=== PATIENT | male | born 1965 | race Caucasian/White ===

== ENCOUNTER → 2016-09-06 | Outpatient (CLI) | payer OTHER ==
[~2016-09-06] VITALS: Ht 180.3 cm; Wt 74.8 kg
[~2016-09-06] MED LIST: /ADVA50050; /AMIT10TA PO; /DULO30CA OR; /ESOM40CA OR; /FENT25PA TD; /METH500TA PO; ACET-654 PO; ACTO45TA; ADV250INH INH; ADVA250A IN; ALBU17IN INH; AMBI10TA OR; AMBI10TA PO; AMBI5TAB PO; AMIT10TA PO; AMIT25TA2 OR; AMLO10TA2 PO; ASPI1TAB PO; ASPI81TA7 PO; BACL10TA2 OR; BACT800T5 PO; CLON-404 PO; COLA100C PO; COMBAER6 INH; CRES5TAB; CRES5TAB PO; DICL500C PO; DICL75TA PO; DOXY100C PO; ERYT25TA PO; EXFORGE; EXFORGE OR; Exforge PO; FERR325T PO; HUMULIN N SC; HYDR-3363 PO; HYDR1CRE63 TOP; HYDR25TA6 OR; INSULIN 70/30 SC; KEFL500C7 PO; LIDOCAINE 2% INJ 100 MG/5 ML SDV (FOR ANES.) As Ordered ONE; LOMO2.5T PO; LOSA100T36 PO; LOVA40TA PO; LYRI200C PO; LYRI75CA OR; NEXI40CA PO; NORT10CA2 PO; NOVO70IN SC; NOVO70VL SC; NS 1,000 ML IV SCH; OMEP40CA2 PO; ONDA1TAB15 PO; OXYC30TA84 PO; PENT400T PO; PHENYLephrine HCL 500 MCG/5 ML (100MCG/ML) SYRINGE (J2370) As Ordered ONE; PROPOFOL 200 MG/20 ML VIAL As Ordered ONE; SILV1CRE19 TOP; SOMA350T OR; SOMA350T PO; SPIR25TA2 OR; TOUJ1.2I SC; TYLE650T30 PO; VICO5TAB OR; VOLT1GEL EX; ZANA4CAP OR; [UNRECOGNIZED DRUG - OTHER]; [UNRECOGNIZED DRUG - OTHER] PO; ePHEDrine SULFATE 25 MG/5 ML(5MG/ML) SYRINGE As Ordered ONE; fentaNYL 100 MCG/2 ML INJECTION (J3010) As Ordered ONE; kadian PO; oxycodone IR PO; trental PO
--- NOTE | 2016-09-06 11:56 | ROOR ---
Patient Name: Julio Cesar Burton Procedure Date: 09/06/2016 11:41 AM Date of : 1965 Age: 51 Room: M OP Gender: Male Note Status: Finalized Procedure: Upper GI endoscopy Indications: Abnormal CT of the GI tract, Suspected gastroparesis, Diarrhea, Endoscopy to assess diarrhea in patient suspected of having disease of the small-bowel Providers: Liu EVANS MD Referring MD: Yoana Turner Requesting Provider: Medicines: Monitored Anesthesia Care Complications: No immediate complications. Procedure: Pre-Anesthesia Assessment: - The heart rate, respiratory rate, oxygen saturations, blood pressure, adequacy of pulmonary ventilation, and response to care were monitored throughout the procedure. The Endoscope was introduced through the mouth, and advanced to the second part of duodenum. The upper GI endoscopy was accomplished without difficulty. The patient tolerated the procedure well. Findings: The examined esophagus was normal. The entire examined stomach was normal. The examined duodenum was normal. Biopsies for histology were taken with a cold forceps for evaluation of celiac disease. Impression: - Normal esophagus. - Normal stomach. - Normal examined duodenum. Biopsied. Recommendation: - Continue present medications. - Gastroparesis diet: - Eat smaller, more frequent meals throughout the day. - Low fat diet. - Liquid/soft foods are tolerated better than solid foods. - Low fiber/well cooked vegetables are tolerated better than high fiber/fibrous foods/raw vegetables. - If possible, avoid or reduce medications that inhibit gastric/intestinal motility such as narcotic medications. Liu Evans MD Liu EVANS MD 09/06/2016 11:56:43 AM This report has been signed electronically. Number of Addenda: 0 Note Initiated On: 09/06/2016 11:41 AM Estimated Blood Loss: Estimated blood loss: none.
--- NOTE | 2016-09-06 12:38 | ROOR ---
Patient Name: Julio Cesar Burton Procedure Date: 09/06/2016 11:42 AM Date of : 1965 Age: 51 [facility] Note Status: Finalized Procedure: Colonoscopy Indications: Chronic diarrhea, Clinically significant diarrhea of unexplained origin, suspect constipation/fecal impaction with overflow diarrhea. Providers: Liu EVANS MD Referring MD: Yoana Turner Requesting Provider: Medicines: Monitored Anesthesia Care Complications: No immediate complications. Procedure: Pre-Anesthesia Assessment: - The heart rate, respiratory rate, oxygen saturations, blood pressure, adequacy of pulmonary ventilation, and response to care were monitored throughout the procedure. The Colonoscope was introduced through the anus and advanced to 4 cm into the ileum. The colonoscopy was performed without difficulty. The patient tolerated the procedure well. The quality of the bowel preparation was poor and required extensive lavage. Visualisation improved, but inadequate for detail exam. Findings: The perianal and digital rectal examinations were normal. (Colon Prep was POOR, Inadequate Visualisation) Five sessile polyps were found in the sigmoid colon. The polyps were 4 to 7 mm in size. These polyps were removed with a hot snare. Resection and retrieval were complete. Two semi-sessile polyps were found at the splenic flexure. The polyps were 5 to 12 mm in size. These polyps were removed with a piecemeal technique using a hot snare. Resection and retrieval were complete. To prevent bleeding post-intervention, one hemostatic clip was successfully placed. Three sessile polyps were found at the hepatic flexure. The polyps were 4 to 6 mm in size. These polyps were removed with a cold snare. Resection and retrieval were complete. Multiple diverticula were found in the sigmoid colon. Internal hemorrhoids were found during retroflexion. The hemorrhoids were moderate. The terminal ileum appeared normal. Biopsies for histology were taken with a cold forceps from the entire colon for evaluation of microscopic colitis. Impression: - (Colon Prep was POOR, Inadequate Visualisation) - Five 4 to 7 mm polyps in the sigmoid colon, removed with a hot snare. Resected and retrieved. - Two 5 to 12 mm polyps at the splenic flexure, removed piecemeal using a hot snare. Resected and retrieved. Clip was placed. - Three 4 to 6 mm polyps at the hepatic flexure, removed with a cold snare. Resected and retrieved. - Mild diverticulosis in the sigmoid colon. - Internal hemorrhoids. - The examined portion of the ileum was normal. - Biopsies were taken with a cold forceps from the entire colon for evaluation of microscopic colitis. Recommendation: - Repeat colonoscopy in 6 months for surveillance after piecemeal polypectomy. - Your preparation was suboptimal/inadequate--this is suggestive of constipation. (your diarrhea is likely related to fecal impaction/constipation with "overflow" loose stool. the treatment is to reduce/avoid medications that cause constipation and start a laxative regimen: Start Miralax 1 capful (17 grams) in 8 ounces of water twice a day. (script at your pharmacy) - Telephone endoscopist for pathology results in 2 weeks. - No aspirin, ibuprofen, naproxen, or other non-steroidal anti-inflammatory drugs for 10 days after polyp removal. Liu Evans MD Liu EVANS MD 09/06/2016 12:38:11 PM This report has been signed electronically. Number of Addenda: 0 Note Initiated On: 09/06/2016 11:42 AM Estimated Blood Loss: Estimated blood loss: none.
[2016-09-06 13:04] VITALS: BP 132/69
== END | disposition home or self-care (01) ==
LOC: M OPP 10:53
PROVIDERS: ATTEND Internal Medicine Gastroenterology
DX: R19.7 Diarrhea, unspecified (principal); D12.5 Benign neoplasm of sigmoid colon; D12.3 Benign neoplasm of transverse colon; K57.30 Diverticulosis of large intestine without perforation or abscess without bleeding; K64.8 Other hemorrhoids; R93.3 Abnormal findings on diagnostic imaging of other parts of digestive tract; K29.80 Duodenitis without bleeding; E11.9 Type 2 diabetes mellitus without complications; R12 Heartburn; M19.90 Unspecified osteoarthritis, unspecified site; R06.83 Snoring; G62.9 Polyneuropathy, unspecified; J44.9 Chronic obstructive pulmonary disease, unspecified; F17.200 Nicotine dependence, unspecified, uncomplicated; F17.228 Nicotine dependence, chewing tobacco, with other nicotine-induced disorders; Z79.899 Other long term (current) drug therapy; Z88.8 Allergy status to other drugs, medicaments and biological substances; I10 Essential (primary) hypertension
CPT/HCPCS: 43239; 45380; 45385; 88305; J2370; J3010

== ENCOUNTER → 2016-10-05 | Outpatient (REF) | payer OTHER ==
[~2016-10-05] MED LIST changes: +AMIT25TA PO; +CHOL4POW4 PO; +DOXY-278 PO; +DULO1CAP2 PO; -LIDOCAINE 2% INJ 100 MG/5 ML SDV (FOR ANES.) As Ordered ONE; -NS 1,000 ML IV SCH; -PHENYLephrine HCL 500 MCG/5 ML (100MCG/ML) SYRINGE (J2370) As Ordered ONE; -PROPOFOL 200 MG/20 ML VIAL As Ordered ONE; +VITA200028 PO; +[UNRECOGNIZED DRUG - CODE] EX; -ePHEDrine SULFATE 25 MG/5 ML(5MG/ML) SYRINGE As Ordered ONE; -fentaNYL 100 MCG/2 ML INJECTION (J3010) As Ordered ONE
== END ==
LOC: EEVIPCON 12:54 → M LAB REF 12:54
PROVIDERS: ATTEND Podiatrist Foot & Ankle Surgery
DX: E11.621 Type 2 diabetes mellitus with foot ulcer (principal); L89.622 Pressure ulcer of left heel, stage 2

== ENCOUNTER 2016-10-08 14:43 | Inpatient (IN) | payer OTHER ==
[~2016-10-08] VITALS: Ht 180.3 cm; Wt 83.5 kg
[~2016-10-08 14:43] MED LIST changes: -AMIT25TA PO; -CHOL4POW4 PO; -DOXY-278 PO; -DULO1CAP2 PO; -VITA200028 PO; -[UNRECOGNIZED DRUG - CODE] EX
[2016-10-08 16:10] VITALS: BP 133/81
[2016-10-08] MEDS ORDERED: VANCOMYCIN HCL 1,000 MG, VIAL MATE ADAPTER 1 EACH in D5W 250 ML IV SCH (16:15)
[2016-10-08] MEDS ORDERED: GLUCOSE 4 GM CHEW TABLET PO PRN (16:30)
[2016-10-08] MEDS ORDERED: GLUCAGON FOR INJ 1 MG VIAL (J1610) SC PRN (16:30)
[2016-10-08] MEDS ORDERED: ACETAMINOPHEN TAB 650MG DOSE (2X325MG) PO PRN (16:30)
[2016-10-08] MEDS ORDERED: DEXTROSE 50% 50 ML SYRINGE IV PRN (16:30)
--- NOTE | 2016-10-08 17:04 | REP ---
Clinical: Cellulitis. Technique: AP, lateral, bilateral oblique views of the right and left foot. Comparison: Left foot dated 12/13/2014. Findings: The left foot demonstrates relatively stable age-related changes and no evidence for acute fracture / dislocation, subcutaneous emphysema or radiodense foreign body. Right foot demonstrates prior amputation at the fifth metatarsophalangeal level. Age-related changes are appreciated. No acute fracture / dislocation, subcutaneous emphysema, or radiodense foreign body. Impression: Evidence for prior right fifth toe amputation. Relatively symmetric bilateral age-related change. No acute fracture or dislocation and no significant swelling or subcutaneous emphysema. Signed by Ehsan Naik MD 10/08/2016 04:56 P
[2016-10-08] MEDS ORDERED: AMIT25TA PO (17:06)
[2016-10-08] MEDS ORDERED: DULO1CAP2 PO (17:06)
[2016-10-08] MEDS ORDERED: [UNRECOGNIZED DRUG - CODE] EX (17:06)
[2016-10-08] MEDS ORDERED: DOXY-278 PO (17:06)
[2016-10-08] MEDS ORDERED: VITA200028 PO (17:06)
[2016-10-08] MEDS ORDERED: CHOL4POW4 PO (17:06)
[2016-10-08] MEDS: PERCOCET 5MG/325MG TAB PO PRN (17:29)
[2016-10-08] MEDS: HumaLOG INSULIN (NovoLOG) PER UNIT SC SCH ×2 (17:30→21:00)
[2016-10-08] MEDS ORDERED: VANCOMYCIN HCL 1,000 MG, VIAL MATE ADAPTER 1 EACH in D5W 250 ML IV ONE (18:00)
[2016-10-08 18:56] LABS: ANION GAP 7 MEQ/L (8-16); BLOOD UREA NITROGEN 10 MG/DL (7-18); CALCIUM LEVEL 8.3 MG/DL (8.5-10.1); CARBON DIOXIDE LEVEL 32 MEQ/L (21-32); CHLORIDE LEVEL 97 MEQ/L (98-107); CREATININE FOR GFR 0.92 MG/DL (0.70-1.30); GLOMERULAR FILTRATION RATE > 60.0 (>56); GLUCOSE, FASTING 256 MG/DL (70-105); POTASSIUM SERUM 4.2 MEQ/L (3.5-5.1); SODIUM LEVEL 136 MEQ/L (136-145)
[2016-10-08] MEDS ORDERED: VANCOMYCIN HCL 500 MG in D5W MINI-BAG PLUS 100 ML IV ONE (19:00)
[2016-10-08 19:12] LABS: MEAN CORPUSCULAR HEMOGLOBIN 26.6 pg (27.0-33.0); MEAN CORPUSCULAR VOLUME 85.8 fl (80.0-96.0)
--- NOTE | 2016-10-08 20:32 | HPE ---
DATE OF ADMISSION: 10/08/2016 PRIMARY CARE PROVIDER: Dr. Goodrich LOCAL DELIVERY TRUCK DRIVER: Dr. Argueta HISTORY OF THE PRESENT ILLNESS: The patient is a 51-year-old male with a past medical history significant for insulin-dependent diabetes, peripheral neuropathy, chronic low back pain, chronic abdominal pain, chronic tobacco abuse, was instructed to come to [facility] by his technology consultant, Dr. Argueta, on 10/08/2016. The patient has a history of bilateral foot ulcers and seen by Dr. Argueta for the past several months. The patient was diagnosed with bilateral lower extremity cellulitis. The patient has been given Keflex and Bactrim; however, the patient's feet continue to get worse and the patient was instructed to come to [facility] for further evaluation and treatment. ALLERGIES: AMITRIPTYLINE. PAST MEDICAL HISTORY: Insulin-dependent diabetes. Peripheral neuropathy. Chronic low back pain. Chronic abdominal pain. Chronic tobacco use. PAST SURGICAL HISTORY: Right knee surgery. Right 5th toe amputation. SOCIAL HISTORY: The patient smokes 1-1/2 packs daily for 35 years. The patient denies alcohol use, denies any recreational drug use. REVIEW OF SYSTEMS: GENERAL: No fever, no chills. HEENT: No vision change. No auditory changes. CARDIOVASCULAR: No chest pain. No palpitations. RESPIRATORY: No shortness of breath. No cough, no sputum production. GASTROINTESTINAL: Chronic abdominal pain. The patient stated that he was told he has a history of gastroparesis. No nausea, no vomiting. MUSCULOSKELETAL: Chronic bilateral foot ulcers, being seen by Dr. Argueta for the past several months. There is worsening of infection from the ulcer site. Failed outpatient Bactrim and Keflex. OBJECTIVE: VITAL SIGNS: Temperature is 98.8, pulse is 83, respirations 18, blood pressure is 133/81, pulse oximetry is 96% in room air. GENERAL: The patient is complaining about significant pain from the lower abdomen and bilateral lower extremities. Unable to answer too many questions, patient got very irritated. HEENT: Normocephalic, atraumatic. Extraocular motor grossly intact. CARDIOVASCULAR: Positive S1, S2, regular rate. LUNGS: Clear to auscultation bilaterally. ABDOMEN: Very tender to palpation, most significantly in bilateral lower abdomen, left greater than the right. Abdomen is soft, bowel sounds present. EXTREMITIES: Bilateral lower extremities around the ankle and the sole are red with a dressing and no active discharge noted. 1+ pitting edema . No sign of cyanosis. NEUROLOGICAL: Sensation to fine touch grossly intact. No focal deficit appreciated. LABORATORY DATA: WBC is 15, hemoglobin is 10.6, hematocrit 34.1, platelet count is 313. Sodium is 136, potassium 4.2, chloride is 97, carbon dioxide 32, BUN 10, creatinine 0.92, GFR greater than 60, fasting glucose is 256, calcium is 8.3, C-reactive protein is 9.55. Microbiology: Left heel wound culture showed positive for GBS, methicillin-resistant Staphylococcus aureus (MRSA), Streptococcus mitis, and Corynebacterium species. The right foot culture from 06/15/2016 and 06/12/2016 both show GBS. IMAGING STUDIES: Bilateral foot x-ray shows evidence of prior right 5th toe amputation. Relatively symmetric bilateral age-related changes. No acute fracture or dislocation and no significant swelling or subcutaneous emphysema. ASSESSMENT AND PLAN: 1. Bilateral lower extremity cellulitis. Previous cultures were reviewed, which showed GBS, MRSA, Streptococcus mitis and Corynebacterium. They were sensitive to vancomycin. The patient was started on intravenous (IV) vancomycin. The technology consultant, Dr. Argueta, will be consulted. 2. Insulin-dependent diabetes. Sliding scale and consistent carbohydrate diet. 3. Peripheral neuropathy. Continue Lyrica. 4. Chronic abdominal pain. The patient has previous imaging and chart reviewed, and there is no specific reason for the pain. Currently, the patient is experiencing significant discomfort, especially in bilateral lower abdomen. Will follow with a CT of the abdomen and pelvis. 5. Chronic tobacco abuse. The patient smokes 1-1/2 packs daily for more than 35 years. The patient will be on a nicotine patch. 6. Deep vein thrombosis (DVT) prophylaxis. The patient will be on heparin.
[2016-10-08] MEDS ORDERED: ALBUTEROL 90 MCG/ACT 8GM HFA INHALER INH PRN (21:15)
[2016-10-08] MEDS ORDERED: zolPIDEM TARTRATE 5 MG TAB PO PRN (21:15)
[2016-10-08 22:00] VITALS: BP 108/62
[2016-10-08] MEDS: HEPARIN SOD (PORCINE) 5000 UNITS/ML VIAL SC SCH (22:27)
[2016-10-08] MEDS: PREGABALIN 100 MG CAP (LYRICA) PO SCH (22:28)
[2016-10-08] MEDS: NICOTINE 21MG/24HR 1 EA TRANSDERMAL TD SCH (22:28)
[2016-10-09] MEDS: oxyCODONE 5MG TAB PO PRN ×4 (00:43→20:27)
[2016-10-09] MEDS: VANCOMYCIN HCL 1,000 MG, VIAL MATE ADAPTER 1 EACH in D5W 250 ML IV SCH ×3 (02:23→18:11)
[2016-10-09 06:00] VITALS: BP 130/71
[2016-10-09] MEDS: HEPARIN SOD (PORCINE) 5000 UNITS/ML VIAL SC SCH ×3 (06:09→22:29)
[2016-10-09 06:56] LABS: MEAN CORPUSCULAR HEMOGLOBIN 26.9 pg (27.0-33.0); MEAN CORPUSCULAR HGB CONC 31.9 g/dl (32.0-36.5); MEAN CORPUSCULAR VOLUME 84.4 fl (80.0-96.0); RED CELL DISTRIBUTION WIDTH 14.7 % (11.5-14.5); WHITE BLOOD COUNT 11.8 K/mm3 (4.0-10.0)
[2016-10-09 07:08] LABS: ANION GAP 10 MEQ/L (8-16); BLOOD UREA NITROGEN 10 MG/DL (7-18); CALCIUM LEVEL 8.4 MG/DL (8.5-10.1); CARBON DIOXIDE LEVEL 30 MEQ/L (21-32); CHLORIDE LEVEL 101 MEQ/L (98-107); CREATININE FOR GFR 0.77 MG/DL (0.70-1.30); GLOMERULAR FILTRATION RATE > 60.0 (>56); GLUCOSE, FASTING 197 MG/DL (70-105); POTASSIUM SERUM 4.1 MEQ/L (3.5-5.1); SODIUM LEVEL 141 MEQ/L (136-145)
--- NOTE | 2016-10-09 07:44 | REP ---
Clinical: Severe abdominal pain. Comparison: 10/21/2015. Findings: Lung bases demonstrate cardiomegaly and pulmonary vascular congestion along with trace atelectasis. Liver, spleen, pancreas, gallbladder, bilateral adrenal glands and kidneys are normal for noncontrast evaluation. Bowel gas pattern suggests mild ileus with subtle prominence to small bowel. Normal terminal ileum and appendix identified in the right lower quadrant pelvis demonstrates normal bladder and age appropriate prostate/seminal vesicles no pelvic fluid/ascites. No free air. No obvious adenopathy. Atherosclerotic changes to the vasculature noted without aneurysm. Musculoskeletal structures demonstrate age-related changes without focal osseous abnormality. Mildly prominent inguinal lymph nodes are identified but incompletely evaluated. Impression: 1. Evidence to suggest cardiomegaly with mild pulmonary vascular congestion and trace basilar atelectasis. II. Subtle prominence to the small bowel suggesting the possibility of ileus and less likely early obstruction. 3. Mildly prominent bilateral inguinal lymph nodes (left greater than right) incompletely evaluated. 4. No further acute intra-abdominal or pelvic pathology appreciated Signed by Ehsan Naik MD 10/09/2016 07:36 A
[2016-10-09] MEDS: HumaLOG INSULIN (NovoLOG) PER UNIT SC SCH ×4 (08:20→21:00)
[2016-10-09] MEDS: DULoxetine 30 MG CAP (CYMBALTA) PO SCH (08:21)
[2016-10-09] MEDS: PANTOPRAZOLE 40MG TAB (PROTONIX) PO SCH (08:21)
[2016-10-09] MEDS: PREGABALIN 100 MG CAP (LYRICA) PO SCH ×3 (08:21→20:24)
[2016-10-09 09:00] VITALS: BP 110/74
--- NOTE | 2016-10-09 13:17 | IPNPDOC ---
Text Note Date of Service The patient was seen on 10/09/16. NOTE Subjective: Patient is a 51 year old male with a PMHx of IDDM2, neuropathy, Chronic low back pain, Chronic abdominal pain, Chronic tobacco use, who presented to the ER from Dr. Argueta's office because of bilateral foot ulcers that were worsening. Patient received Keflex and Bactrim but failed to improve. Patient was seen and examined at the bedside. Clinically has no new complaints. Objective: Vitals (See below) General: Lying in bed, no acute distress, comfortable, AAOx3 HEENT: NC, AT CVS: RRR, +S1S2 Lungs: Fair air entry b/l, -w/r/r Abdomen: Soft, ND, Tenderness diffusely, +BSx4 Extremities: B/l heel ulcers, draining - bandaged, trace edema, - calf tenderness Assessment and plan: 1. Bilateral lower extremity cellulitis - likely 2/2 diabetic neuropathy - Presented with outpatient failure of antibiotics and non-healing wounds - Physical reveals draining wounds bilaterally - Wound cultures 10/05: Positive for Group B strep, MRSA, Streptococcus mitis, Corynebacterium species - Leukocytosis has been improving - Has been started on Vancomycin - Dr. Argueta consulted - will evaluate patient today 2. IDDM2 - c/w ISS 3. Peripheral neuropathy - c/w pregabalin and duloxetine 4. Chronic abdominal pain - Has had workup completed as an outpatient, however no revealing etiology - CT abdomen 10/09 negative for acute pathology - will monitor for now 5. Chronic tobacco use - c/w nicotine patch 6. DVT prophylaxis - c/w heparin VS,Fishbone, I+O VS, Fishbone, I+O Laboratory Tests 10/08/16 18:07 Calcium Level 8.3 L, Red Blood Count 3.97 L, Mean Corpuscular Volume 85.8, Mean Corpuscular Hemoglobin 26.6 L, Mean Corpuscular Hemoglobin Concent 31.0 L, Red Cell Distribution Width 15.0 H 10/09/16 06:14 Calcium Level 8.4 L, Red Blood Count 4.07 L, Mean Corpuscular Volume 84.4, Mean Corpuscular Hemoglobin 26.9 L, Mean Corpuscular Hemoglobin Concent 31.9 L, Red Cell Distribution Width 14.7 H Vital Signs Date Time Temp Pulse Resp B/P Pulse Ox O2 Delivery O2 Flow Rate FiO2 10/09/16 09:00 18 10/09/16 06:43 95 10/09/16 06:00 98.3 72 130/71 Room Air I&O- Last 24 Hours up to 6 AM 10/09/16 06:00 Intake Total 1130 ml Output Total 0 ml Balance 1130 ml RENÉE BASSETT MD Oct 09, 2016 13:17
[2016-10-09 14:00] VITALS: BP 106/62
[2016-10-09] MEDS: SANTYL OINT 30GM TOP SCH (14:08)
--- NOTE | 2016-10-09 16:05 | REP ---
MRI LEFT FOOT WITH AND WITHOUT CONTRAST: TECHNIQUE: Coronal T1, STIR, axial T1, STIR, sagittal STIR, T1 fat sat, post-IV gadolinium sagittal and coronal T1 fat sat with the intravenous administration of 15 mL of gadolinium. There is mild ill-defined marrow edema in the inferior talus and anterior aspect of the calcaneus. This is likely secondary to arthritic changes in this region. No other abnormal marrow signal is seen. There is some minimal ill-defined enhancement of the marrow in the anterior calcaneus. More posteriorly at the soft-tissues of the heel there appears to be a soft-tissue ulceration extending into the deep soft-tissues. There is no fluid collection or abscess. The adjacent calcaneus demonstrates no abnormal signal posteriorly and inferiorly. Diffuse soft-tissue edema is seen. There is some scattered ill-defined enhancement of the soft-tissues compatible with cellulitis. IMPRESSION: Marrow edema in the talus and calcaneus anteriorly, likely related to arthritic changes. No compelling MR evidence for osteomyelitis. Diffuse soft-tissue edema with findings suggesting cellulitis particularly in the region of the heel where there is an apparent soft-tissue ulceration. No abscess is seen. Signed by Osvaldo Guajardo MD 10/10/2016 12:10 P
--- NOTE | 2016-10-09 17:25 | CR ---
DATE OF CONSULTATION: 10/09/2016 REASON FOR CONSULTATION: Lower extremity wounds and infection. Julio Cesar Burton is a patient well known to me who was seen in my office yesterday and noted to have worsening of wounds and swelling and pain to his feet. He had been treated outpatient with Keflex and Bactrim without improvement, he does have a history of gastroparesis and likely there is limited absorption of these secondary to this. Wound culture in my office, performed on 10/05/2016, grew group B Streptococcus, methicillin-resistant Staphylococcus aureus (MRSA), Streptococcus mitis, and corynebacterium, each of these is sensitive to vancomycin. PAST MEDICAL HISTORY: Significant for diabetes uncontrolled, peripheral neuropathy, chronic lower back pain, chronic abdominal pain, and chronic tobacco use. SURGICAL HISTORY: Includes right knee surgery and right 5th toe amputation. SOCIAL HISTORY: Positive for a pack and a half a day smoking. Denies alcohol or other drug use. REVIEW OF SYSTEMS: Denies nausea, vomiting, fever, or chills. ALLERGIES: AMITRIPTYLINE. VITAL SIGNS: Patient has been afebrile. Temperature today is 98.3, pulse 72, respiratory rate 20, blood pressure 130/71, pulse oximetry 95% on room air. LABORATORY DATA: White blood cell count on admission was 15, it is down to 11.8 today, creatinine is 0.77, GFR is greater than 60. His A1c is 10.6 and his CRP on admission was 9.55. Wound culture as noted above. IMAGING: Xrays taken of both feet. There are no obvious signs of osteomyelitis. At the wound sites there is no soft tissue emphysema. The wound on the left plantar heel is noted with soft tissue defect at that site. No obvious bony involvement. LOWER EXTREMITY EXAMINATION: There is an ulceration to the right plantar 1st interspace where patient previously had incision and drainage secondary to stepping on a nail. Wound base is granular. There is no malodor. There is some periwound maceration. No surrounding erythema. No drainage. The left plantar foot has two wounds, one at the plantar heel and one at the plantar lateral forefoot. The plantar lateral forefoot has small site of fibrous tissue, superficial. The plantar heel wound has central area of fibrotic tissue with depth approximately 0.4 cm. There is some erythema to the plantar foot with edema noted in both lower extremities. ASSESSMENT: Patient with bilateral diabetic ulcerations, cellulitis, history of noncompliance with insulin regimen, and limited compliance with offloading and ambulation. PLAN: Continue current antibiotics, vancomycin. Will order MRI to further rule out osteomyelitis or deep space infection to the left heel. If there is positive findings on the MRI, will plan operating room for incision and drainage. If no deep space infection on MRI, will plan to continue local care. Patient likely will require outpatient intravenous (IV) antibiotics, likely via peripherally inserted central catheter (PICC) due to poor absorption of antibiotics due to his gastroparesis. Continue current wound care. Minimize ambulation. Will continue to follow.
[2016-10-09] MEDS: NICOTINE 21MG/24HR 1 EA TRANSDERMAL TD SCH (20:25)
[2016-10-09 22:00] VITALS: BP 102/64
[2016-10-09] MEDS: PERCOCET 5MG/325MG TAB PO PRN (22:39)
[2016-10-10] MEDS: VANCOMYCIN HCL 1,000 MG, VIAL MATE ADAPTER 1 EACH in D5W 250 ML IV SCH ×2 (02:31→09:56)
[2016-10-10] MEDS: oxyCODONE 5MG TAB PO PRN ×4 (02:33→21:12)
[2016-10-10 06:00] VITALS: BP 109/68
[2016-10-10 06:11] LABS: MEAN CORPUSCULAR HEMOGLOBIN 26.9 pg (27.0-33.0); MEAN CORPUSCULAR HGB CONC 31.4 g/dl (32.0-36.5); MEAN CORPUSCULAR VOLUME 85.7 fl (80.0-96.0); RED CELL DISTRIBUTION WIDTH 15.1 % (11.5-14.5); WHITE BLOOD COUNT 9.7 K/mm3 (4.0-10.0)
[2016-10-10 06:21] LABS: ANION GAP 7 MEQ/L (8-16); BLOOD UREA NITROGEN 11 MG/DL (7-18); CALCIUM LEVEL 8.6 MG/DL (8.5-10.1); CARBON DIOXIDE LEVEL 32 MEQ/L (21-32); CHLORIDE LEVEL 100 MEQ/L (98-107); GLOMERULAR FILTRATION RATE > 60.0 (>56); GLUCOSE, FASTING 213 MG/DL (70-105); SODIUM LEVEL 139 MEQ/L (136-145)
[2016-10-10] MEDS: HEPARIN SOD (PORCINE) 5000 UNITS/ML VIAL SC SCH ×3 (06:22→21:13)
[2016-10-10] MEDS: PREGABALIN 100 MG CAP (LYRICA) PO SCH ×3 (08:17→20:18)
[2016-10-10] MEDS: HumaLOG INSULIN (NovoLOG) PER UNIT SC SCH ×4 (08:17→21:13)
[2016-10-10] MEDS: DULoxetine 30 MG CAP (CYMBALTA) PO SCH (08:17)
[2016-10-10] MEDS: SANTYL OINT 30GM TOP SCH (08:17)
[2016-10-10] MEDS: PANTOPRAZOLE 40MG TAB (PROTONIX) PO SCH (08:17)
[2016-10-10 14:00] VITALS: BP 143/74
--- NOTE | 2016-10-10 14:15 | PHACANCOPD ---
PHARMACY VANCOMYCIN DOSING Pt Demographics Demographics Patient Age:51 , Weight:83.500 , Gender: male Adjusted Body Weight Date: 10/10/16, Adjusted Body Weight: Kg Events Past 24 Hours Events Past 24 Hours: YES: Elevation in WBC, Other (POSITIVE WOUND CULTURE RESULT) Vancomycin Vancomycin indication: Cellulitis Vancomycin Target Ranges: 15-20 mcg/ml Vancomycin Load Y/N: Yes Load Dose Date Time Vancomycin Load Dose: 1500mg Date: 10/08/16 Time: 1800 Vancomycin Dose Date: 10/10/16. Current Vancomycin Dose: [1g IV Q8H] Intermittent Dosing?: No Labs Labs Item Value Date Time White Blood Count 9.7 K/mm3 10/10/16 0539 White Blood Count 11.8 K/mm3 H 10/09/16 0614 White Blood Count 15.0 K/mm3 H 10/08/16 1807 Creatinine 0.90 MG/DL 10/10/16 0539 Creatinine 0.77 MG/DL 10/09/16 0614 Creatinine 0.92 MG/DL 10/08/16 1807 C-Reactive Protein, Quantitative 9.55 MG/DL H 10/08/16 1807 Creatinine Clearance Date:10/10/16. Estimated Creatinine Clearance: [>100ml/min]. Assessment and Plan Maintaining Current Dose?: Yes Reason for dose change: No Dose Change Pharmacist Note Pharmacist Note Date: 10/10/16. Pharmacist note: Vancomycin initiated 10/08/16 @1800 with a 1500mg loading dose, followed by a maintenance regimen of 1g IV Q8H starting @0200 for the treatment of bilateral lower extremity cellulitis - aiming for a goal trough of 15-20mcg/ml. Patient with PMH of T1DM w/neuopathy who failed outpt tx with keflex and bactrim. 10/05 left foot culture grew group b strep, MRSA (RADHA <0.5), and strep mitis - all sensitive to vanco. 10/09/16 trough level resulted back at 18.5. We will continue the patient on the current regimen of 1g IV Q8H, and continue to monitor/schedule further levels accordingly. DANILO BERNAL [facility]ARMAC[facility] Oct 10, 2016 14:15
[2016-10-10] MEDS ORDERED: ZYVO100T PO ×2 (16:01→16:11)
--- NOTE | 2016-10-10 17:24 | IPN ---
DATE: 10/10/2016 SUBJECTIVE: The patient tells me that he has no specific complaints other than his chronic abdominal discomfort. He denies any chest pain, shortness of breath, fevers, chills, nausea, vomiting or diarrhea. OBJECTIVE: VITAL SIGNS: Temperature 96.8, pulse 73, respiratory rate 18, blood pressure 109/68, oxygen saturation 94% on room air. GENERAL: He is a disheveled, middle-aged man lying in bed at a 30-degree angle. He is in no distress. HEENT: Cranial nerves II through XII are grossly intact. He has poor dentition. He is malodorous. CARDIOVASCULAR: S1, S2 regular. RESPIRATORY: Exam is clear. ABDOMEN: Exam is benign. EXTREMITIES: His dressings are taken down on both lower extremities. He has superficial ulcer on his second metatarsal, status post amputation of his right fifth lower extremity digit. Good granulation tissue. No obvious erythema, swelling or tenderness. On the left lower extremity he has a heel ulcer which appears to have some good granulation tissue, as well as metatarsal ulcer as well. LABORATORY DATA: WBC 9.7 down from 15 at the time of admission. Hemoglobin 10.2, hematocrit 32.5, platelet count 303. Chemistry panel: Sodium 139, potassium 4.0, chloride 100, bicarbonate 32, BUN 11, creatinine 0.9. IMAGING: The patient did have MRI of the foot which reveals mild edema in the calcaneus anteriorly. Legs with age-related arthritic changes. No compelling MRI evidence for osteomyelitis. ASSESSMENT AND PLAN: This is a 51-year-old man with left lower extremity cellulitis. 1. Left lower extremity cellulitis. The patient has a diabetic foot with neuropathy. He has been followed with Dr. Argueta on the outpatient setting. His wounds had not been healing and reportedly, cultures on 10/05 were positive for group B strep, methicillin-resistant Staphylococcus aureus (MRSA), and streptococcus mitis as well as corynebacterium. He has been improving on vancomycin. Dr. Argueta's help is greatly appreciated. I did speak with him today. I think this patient could likely be treated with oral linezolid. I did speak with Dr. Argueta regarding oral antibiotics versus intravenous (IV) antibiotics, and I have asked Dr. Sousa to help guide us. Her help is greatly appreciated as well. 2. Type 2 diabetes. He is on insulin sliding scale. Please note that patient is poorly controlled. 3. Peripheral neuropathy. He is on Lyrica and duloxetine. 4. Chronic abdominal pain. This had a fairly extensive workup in the past for many years, is relatively mild and stable. 5. Chronic tobacco use. Cessation and counseling offered. Continue with nicotine patch. 6. Deep venous thrombosis (DVT) prophylaxis. The patient is on heparin. DISPOSITION: Should prior authorization be able to be obtained for any oral antibiotics, I suspect the patient could likely be discharged within the next 24-48 hours .
[2016-10-10] MEDS: PERCOCET 5MG/325MG TAB PO PRN (17:49)
--- NOTE | 2016-10-10 18:04 | IPN ---
DATE: 10/10/2016 Patient seen and examined at bedside. States is doing well. Denies pain in his feet but notes he has not been walking. Temperature is 96.8. He has been afebrile overnight. LABORATORY DATA: White blood cell count is 9.7. Lower extremity examination: There is persisting edema to both lower extremities. The right wound base is granular. Left plantar foot wounds are granular with some central fibrosis to the left heel wound. There remains some erythema and ecchymosis surrounding the plantar arch. MRI report images are reviewed. There is edema noted consistent with cellulitis, but no deep space abscess, air, or bone changes consistent with osteomyelitis. ASSESSMENT: A 51-year-old diabetic male with bilateral foot ulcerations and cellulitis. PLAN: Discussed care with Dr. Mcintyre. Will consult infectious disease. Wound culture grew group B streptococcus, methicillin-resistant Staphylococcus aureus (MRSA), Streptococcus mitis, and Corynebacterium. Will consult physical therapy for crutch training, to be partial weightbearing to his left foot. Will follow.
[2016-10-10] MEDS: LINEZOLID 600MG TABLET (ZYVOX) PO SCH (20:18)
[2016-10-10] MEDS: NICOTINE 21MG/24HR 1 EA TRANSDERMAL TD SCH (20:19)
[2016-10-10 22:00] VITALS: BP 120/74
[2016-10-11] MEDS: HEPARIN SOD (PORCINE) 5000 UNITS/ML VIAL SC SCH (05:21)
[2016-10-11] MEDS: oxyCODONE 5MG TAB PO PRN (05:22)
[2016-10-11 06:00] VITALS: BP 139/84
[2016-10-11 06:31] LABS: MEAN CORPUSCULAR HEMOGLOBIN 26.8 pg (27.0-33.0); MEAN CORPUSCULAR HGB CONC 31.3 g/dl (32.0-36.5); MEAN CORPUSCULAR VOLUME 85.7 fl (80.0-96.0); WHITE BLOOD COUNT 10.2 K/mm3 (4.0-10.0)
[2016-10-11 06:48] LABS: ANION GAP 6 MEQ/L (8-16); BLOOD UREA NITROGEN 5 MG/DL (7-18); CALCIUM LEVEL 8.7 MG/DL (8.5-10.1); CARBON DIOXIDE LEVEL 30 MEQ/L (21-32); CHLORIDE LEVEL 103 MEQ/L (98-107); CREATININE FOR GFR 0.84 MG/DL (0.70-1.30); GLOMERULAR FILTRATION RATE > 60.0 (>56); GLUCOSE, FASTING 273 MG/DL (70-105); SODIUM LEVEL 139 MEQ/L (136-145)
[2016-10-11] MEDS: HumaLOG INSULIN (NovoLOG) PER UNIT SC SCH (07:59)
[2016-10-11] MEDS: LINEZOLID 600MG TABLET (ZYVOX) PO SCH (07:59)
[2016-10-11] MEDS: DULoxetine 30 MG CAP (CYMBALTA) PO SCH (07:59)
[2016-10-11] MEDS: PANTOPRAZOLE 40MG TAB (PROTONIX) PO SCH (08:00)
[2016-10-11] MEDS: PREGABALIN 100 MG CAP (LYRICA) PO SCH (08:00)
[2016-10-11] MEDS: SANTYL OINT 30GM TOP SCH (08:00)
--- NOTE | 2016-10-11 08:19 | CR ---
DATE OF CONSULTATION: 10/10/2016 REQUESTED BY: Dr. Mcintyre for evaluation of cellulitis of the left leg with diabetic foot ulcers to both feet. HISTORY OF PRESENT ILLNESS: Mr. Burton is a 51-year-old gentleman patient of Dr. Argueta who has had chronic diabetic foot ulcers for the past few months. The patient is well known to Dr. Argueta and when he saw him in the office, he recommended that he get admit to the hospital. He has been treated as an outpatient with Keflex and Bactrim without any improvement. The patient had a wound culture which was done on 10/05 which was positive for Methicillin-resistant staphylococcus aureus (MRSA), Streptococcus mitis, group B strep and corynebacterium. He was admitted to the hospital and started on IV vancomycin. He had an MRI of the left foot which did not show any evidence of osteomyelitis. He feels much better. He does not have any fever or chills. He has no nausea or vomiting but has history of chronic diarrhea for the past year. He has had an endoscopy which showed duodenitis and colonoscopy which showed tubular and tubulovillous adenoma with Dr. Willis 08/2016. PAST MEDICAL HISTORY: Significant for: Diabetes, uncontrolled. Peripheral neuropathy. Chronic low back pain. Peripheral vascular disease. Chronic diarrhea being worked up with Dr. Willis. Tobacco abuse. Chronic duodenitis. Osteomyelitis of the toe status post amputation. Nail puncture of the foot along the first metatarsal status post incision and drainage 06/15/2016. Culture positive for group B strep. PAST SURGICAL HISTORY: Right knee surgery. Right fifth toe amputation done on in 04/2016. Incision and drainage from an abscess 05/2016. SOCIAL HISTORY: He smokes a pack and a half of cigarettes a day. Denies alcohol or drug use. ALLERGIES: AMITRIPTYLINE. MEDICATIONS: - vancomycin 1 gram IV every 8 hours - oxycodone 20 mg by mouth every 6 hours as needed - Ambien 10 by mouth daily at bedtime - Lyrica 20 mg daily three times daily - nicotine patch one patch daily at bedtime - insulin sliding scale - Protonix 40 mg by mouth daily - duloxetine 30 mg by mouth daily - Santyl to left heel daily LABORATORY DATA: White count on admission was 15,000, today was 9.7, hemoglobin 10.2, hematocrit 32.5, platelets 303. Sodium 139, potassium 4, chloride 100, bicarb 32, BUN 11, creatinine 0.9, glucose 213, calcium 8.6, CRP 9.19 down from 9.5 two days ago. Culture done from the left heel was positive for group B strep, Methicillin-resistant staphylococcus aureus (MRSA), Streptococcus mitis all moderate growth, all three pathogens and few Corynebacterium species which is skin patricia. Stool for Clostridium difficile was done on 08/03 was negative. On physical exam, he is a middle-aged gentleman, looks older than stated age, in no acute distress. T-max was 99.4 yesterday. Today is temperature is 97.6, pulse 81, respirations 18, blood pressure 143/74, O2 sat 90% on room air. Heart: Normal S1, S2, distant. No murmurs heard. Lungs: Diminished with few expiratory wheezes bilaterally. Abdomen is soft, mildly tender diffusely with no rebound. Back: No costovertebral angle (CVA) tenderness. There is mild lumbosacral tenderness. Extremities: Edema of the left leg +1 with mild erythema extending over to the ross. There is two wounds in the left plantar foot, one at the plantar heel and one at the lateral foot. Both have serous discharge on the Optifoam dressing. They measure about 3 x 4 cm. Right foot has an ulcer along the first interspace where incision and drainage was previously done. The wound base has granulation tissue. There is no purulent discharge and no smell to it. There is some periwound maceration but no surrounding edema. No surrounding erythema. Skin exam shows multiple tattoos. No rashes. Foot MRI shows marrow edema in the talus and calcaneus anteriorly related to arthritic changes but no compelling MR evidence of osteomyelitis or diffuse soft tissue edema to suggest cellulitis, particularly in the heel area. No abscess is seen. This was done with and without contrast on 10/09. CT of the abdomen and pelvis was also done for abdominal pain. Workup shows cardiomegaly, prominence of the small bowel suggesting possibility of ileus and most likely an early obstruction, mild prominent bilateral inguinal adenopathy left greater than the right that could be related to foot infection. Foot x-ray shows evidence of prior right foot amputation, age-related changes bilaterally. No acute fracture. IMPRESSION: This is a 51-year-old gentleman with a history of insulin-dependent diabetes poorly controlled, chronic abdominal pain, who has had multiple diabetic foot infections, most recently in April had fifth toe amputation with group B strep on cultures. In May he had a puncture wound of the right foot along the first interspace which also had Group B strep and had he required incision and drainage and now he has new ulcers on his left foot with some cellulitis involving the left leg. Culture had been positive for group B strep, Methicillin-resistant staphylococcus aureus (MRSA), Streptococcus mitis. The patient has improved with IV vancomycin. Decrease in his white count to normal. Cellulitis has improved. MRI does not show evidence of osteomyelitis. The patient could be treated with linezolid 600 mg by mouth twice daily for 10-14 days. The patient also has a history of heavy tobacco abuse and therefore even though his pulses are felt bilaterally, it would suggest also having a vascular workup. PLAN: Will get Zyvox 600 mg by mouth twice daily for 10-14 days. Follow up CBC, CRP next week. Prescription has been sent to his pharmacy and if needed, will get prior authorization. ABRAHAM
--- NOTE | 2016-10-11 14:16 | DS.PDOC ---
Discharge Summary General Date of Admission Oct 08, 2016 at 15:26 Date of Discharge Oct 11, 2016 at 11:52 Discharge Summary DATE OF ADMISSION: 10/08/2016 DATE OF DISCHARGE: 10/11/2016 PRIMARY CARE PHYSICIAN: Yoana Turner DISCHARGE DIAGNOS(E)S: Bilateral lower extremity Cellulitis HPI & HOSPITAL COURSE: 51-year-old male with diabetes mellitus type 2, neuropathy, chronic low back pain, chronic abdominal pain, tobacco use who has been seen Dr. Argueta for bilateral foot ulcers, and was sent to the ER by Dr. Argueta for admission given concern for bilateral lower extremity cellulitis. The patient had been on Keflex and Bactrim at home, and upon admission, he was placed on vancomycin. Cultures collected at Dr. Argueta's office grew GBS, MRSA, streptococcus mitis, and Corynebacterium. The patient has been afebrile, and a leukocytosis of 15 has now resolved. His CRP is also trending down. An MRI did not show any evidence of osteomyelitis or abscess. The patient was seen by Dr. Sousa of infectious disease, and she recommended changing the patient to by mouth Zyvox for 10-14 days. She would like to see him next week, and get a CBC and CRP prior to that appointment. She also has recommended a vascular workup. Since the patient has strong bilateral pedal pulses, we will complete this as an outpatient. The patient has been referred to his primary physician within the next week, to have a CTA with runoff completed. The patient will also keep regular follow-up with Dr. Argueta. PHYSICAL EXAMINATION ON DISCHARGE: VITAL SIGNS: Vital Sign - Last 24 Hours 10/10/16 10/10/16 10/10/16 10/10/16 14:38 17:49 18:30 21:12 Resp 18 18 18 22 O2 Delivery Room Air 10/10/16 10/11/16 10/11/16 10/11/16 22:00 05:22 05:52 06:00 Temp 97.9 96.4 Pulse 86 78 Resp 18 22 20 20 B/P 120/74 139/84 Pulse Ox 91 96 O2 Delivery Room Air GENERAL: Awake, alert, no acute distress CARDIOVASCULAR EXAMINATION: Regular rate and rhythm, with no rubs, gallops, or murmur. RESPIRATORY EXAMINATION: Clear to auscultation bilaterally with no wheezes, rales, or rhonchi. ABDOMINAL EXAMINATION: Soft, nontender, nondistended. Bowel sounds present. EXTREMITIES: No peripheral edema, strong bilateral pedal pulses, left foot wrapped in kerlex PSYCH: Normal mood and affect DISPOSITION: Home DISCHARGE INSTRUCTIONS: Follow-up with Dr. Sousa within 1 week; please get CBC and CRP collected prior to this appointment (patient was given paper RX for this). Follow-up with Dr. Argueta on October 16 Follow-up with Yoana Turner, PCP, within 1 week. Needs referral for CTA with runoff If symptoms return, or if you experience worsening of your symptoms, please call your doctor or return to the emergency department. ITEMS THAT NEED OUTPATIENT FOLLOWUP: CBC and CRP to be followed up by Dr. Sousa Needs referral from PCP for CTA with runoff to evaluate vascular patency of bilateral lower extremities Patient was seen and examined by me on the day of discharge, and I spent a total time of greater than than 30 minutes on this discharge. Vital Signs/I&Os Vital Signs Date Time Temp Pulse Resp B/P Pulse Ox O2 Delivery O2 Flow Rate FiO2 10/11/16 06:00 96.4 78 20 139/84 96 10/11/16 05:52 Room Air I&O- Last 24 Hours up to 6 AM 10/11/16 05:59 Intake Total 4830 ml Output Total 0 ml Balance 4830 ml Laboratory Data Labs 24H Laboratory Tests 2 10/10/16 15:13: Bedside Glucose (Misc Panel) 143H 10/10/16 17:27: Bedside Glucose (Misc Panel) 300H 10/10/16 20:34: Bedside Glucose (Misc Panel) 277H 10/11/16 06:18: Anion Gap 6L, C-Reactive Protein, Quantitative 7.65H, Blood Urea Nitrogen 5L, Creatinine 0.84, Sodium Level 139, Potassium Level 4.0, Chloride Level 103, Carbon Dioxide Level 30, Calcium Level 8.7, Glomerular Filtration Rate > 60.0 CBC/BMP Laboratory Tests 10/11/16 06:18 Calcium Level 8.7, Red Blood Count 3.95 L, Mean Corpuscular Volume 85.7, Mean Corpuscular Hemoglobin 26.8 L, Mean Corpuscular Hemoglobin Concent 31.3 L, Red Cell Distribution Width 15.0 H FSBS Laboratory Tests Test 10/10/16 15:13 10/10/16 17:27 10/10/16 20:34 Range/Units Bedside Glucose (Misc Panel) 143 300 277 70-105 MG/DL Medications Scheduled ([place] Bryanostar) 300 Unit/Ml Inj 48 UNIT SC DAILY (Eleonora-Hydrolac 12) 12 % Cre 12 % EX DAILY apply to dry skin nd callus Albuterol/Ipratropium (Combivent Respimat 20-100 Mcg/Act) 1 Aer Aer 1 PUFF INH QID Duloxetine Hcl (Duloxetine HCl) 30 Mg Cap 30 MG PO DAILY Ergocalciferol (Vitamin D2) 2,000 Unit Tab 50,000 UNIT PO weekly on Saturday Esomeprazole Magnesium Trihydr (Nexium) 40 Mg Cap 40 MG PO DAILY Linezolid (Zyvox) 600 Mg Tab 600 MG PO BID Pregabalin (Lyrica) 200 Mg Cap 200 MG PO TID Scheduled PRN Albuterol Sulfate (Ventolin Hfa) 200 Puff/8 Gm Aers 2 PUFF INH Q4H PRN PRN SHORTNESS OF BREATH Ondansetron HCl (Ondansetron HCl) 4 Mg Tab 4 MG PO Q6H PRN PRN NAUSEA Oxycodone Hcl (Oxycodone HCl) 30 Mg Tab 20 MG PO Q6HP PRN PRN PAIN Zolpidem Tartrate (Ambien) 5 Mg Tab 10 MG PO QHS PRN PRN SLEEP take 1/2 to 1 tablet max daily dose 1 tablet Allergies Coded Allergies: Amitriptyline (Unverified Adverse Reaction, Unknown, "HANGOVER"FEELING, ) JULIO DELCID Oct 11, 2016 14:16
== END 2016-10-11 11:52 | disposition home or self-care (01) | DRG 383 ==
LOC: M MSPAV 15:26
PROVIDERS: ADMIT Internal Medicine; ATTEND Hospitalist
DX: L03.115 Cellulitis of right lower limb (principal); E11.42 Type 2 diabetes mellitus with diabetic polyneuropathy; E11.621 Type 2 diabetes mellitus with foot ulcer; L97.529 Non-pressure chronic ulcer of other part of left foot with unspecified severity; L97.519 Non-pressure chronic ulcer of other part of right foot with unspecified severity; M54.5 Low back pain; F17.210 Nicotine dependence, cigarettes, uncomplicated; E11.65 Type 2 diabetes mellitus with hyperglycemia; K29.80 Duodenitis without bleeding; L03.116 Cellulitis of left lower limb; B95.62 Methicillin resistant Staphylococcus aureus infection as the cause of diseases classified elsewhere; B95.1 Streptococcus, group B, as the cause of diseases classified elsewhere; Z89.421 Acquired absence of other right toe(s); Z88.8 Allergy status to other drugs, medicaments and biological substances; Z79.4 Long term (current) use of insulin; Z91.14 Patient's other noncompliance with medication regimen

== ENCOUNTER → 2016-10-11 | Outpatient (REF) | payer OTHER ==
[~2016-10-11] MED LIST changes: +AMIT25TA PO; +CHOL4POW4 PO; +DOXY-278 PO; +DULO1CAP2 PO; +VITA200028 PO; +ZYVO100T PO; +[UNRECOGNIZED DRUG - CODE] EX
[2016-10-11 08:53] LABS: ANION GAP 6 MEQ/L (8-16); BLOOD UREA NITROGEN 5 MG/DL (7-18); CARBON DIOXIDE LEVEL 30 MEQ/L (21-32); CHLORIDE LEVEL 103 MEQ/L (98-107); CREATININE FOR GFR 0.84 MG/DL (0.70-1.30); GLOMERULAR FILTRATION RATE > 60.0 (>56); GLUCOSE, FASTING 273 MG/DL (70-105); SODIUM LEVEL 139 MEQ/L (136-145)
[2016-10-11 08:54] LABS: CALCIUM LEVEL 8.7 MG/DL (8.5-10.1)
== END ==
LOC: M LAB REF 08:42
PROVIDERS: ATTEND Nurse Practitioner Family
DX: E10.9 Type 1 diabetes mellitus without complications (principal)

== ENCOUNTER → 2016-10-23 | Outpatient (CLI) | payer OTHER ==
[~2016-10-23] VITALS: Ht 180.3 cm; Wt 77.1 kg
[~2016-10-23] MED LIST changes: +NS 1,000 ML IV SCH; +PHENYLephrine HCL 500 MCG/5 ML (100MCG/ML) SYRINGE (J2370) As Ordered ONE; +PROPOFOL 200 MG/20 ML VIAL As Ordered ONE
--- NOTE | 2016-10-23 15:34 | ROOR ---
Patient Name: Julio Cesar Burton Procedure Date: 10/23/2016 2:46 PM Date of : 1965 Age: 51 Room: [facility] Gender: Male Note Status: Finalized Procedure: Colonoscopy Indications: High risk colon cancer surveillance: Personal history of colonic polyps, Surveillance: Personal history of piecemeal removal of large sessile adenoma on last colonoscopy (less than 6 months ago) Providers: Liu EVANS MD Referring MD: Yoana GONZALES NP Requesting Provider: Medicines: Monitored Anesthesia Care Complications: No immediate complications. Procedure: Pre-Anesthesia Assessment: - The heart rate, respiratory rate, oxygen saturations, blood pressure, adequacy of pulmonary ventilation, and response to care were monitored throughout the procedure. The Colonoscope was introduced through the anus and advanced to the cecum, identified by appendiceal orifice and ileocecal valve. The colonoscopy was performed without difficulty. The patient tolerated the procedure well. The quality of the bowel preparation was unsatisfactory. The bowel preparation used was GoLYTELY and magnesium citrate. Findings: The perianal and digital rectal examinations were normal. (EXAM: Complete, PREP: Suboptimal) Five sessile polyps were found in the ascending colon and cecum. The polyps were 5 to 12 mm in size. These polyps were removed with a piecemeal technique using a cold snare. Resection and retrieval were complete. Four sessile polyps were found in the sigmoid colon. The polyps were 5 to 6 mm in size. These polyps were removed with a cold snare. Resection and retrieval were complete. Impression: - Preparation of the colon was unsatisfactory. - (EXAM: Complete, PREP: Suboptimal) - Five 5 to 12 mm polyps in the ascending colon and in the cecum, removed piecemeal using a cold snare. Resected and retrieved. - Four 5 to 6 mm polyps in the sigmoid colon, removed with a cold snare. Resected and retrieved. Recommendation: - Repeat colonoscopy in 1 year because the bowel preparation was suboptimal and for surveillance of polyps greater than 1 cm in size. Liu Evans MD Liu EVANS MD 10/23/2016 3:33:51 PM This report has been signed electronically. Number of Addenda: 0 Note Initiated On: 10/23/2016 2:46 PM Estimated Blood Loss: Estimated blood loss: none.
[2016-10-23 16:00] VITALS: BP 141/81
== END | disposition home or self-care (01) ==
LOC: M OPP 11:57
PROVIDERS: ATTEND Internal Medicine Gastroenterology
DX: D12.2 Benign neoplasm of ascending colon (principal); D12.0 Benign neoplasm of cecum; D12.5 Benign neoplasm of sigmoid colon; E78.00 Pure hypercholesterolemia, unspecified; E10.9 Type 1 diabetes mellitus without complications; R12 Heartburn; F33.9 Major depressive disorder, recurrent, unspecified; G62.9 Polyneuropathy, unspecified; J44.9 Chronic obstructive pulmonary disease, unspecified; F17.200 Nicotine dependence, unspecified, uncomplicated; F17.228 Nicotine dependence, chewing tobacco, with other nicotine-induced disorders; Z79.899 Other long term (current) drug therapy; Z79.891 Long term (current) use of opiate analgesic
CPT/HCPCS: 45385; 88305; 99156; 99157; J2370

== ENCOUNTER → 2016-10-24 | Outpatient (REF) | payer OTHER ==
[~2016-10-24] MED LIST changes: -NS 1,000 ML IV SCH; -PHENYLephrine HCL 500 MCG/5 ML (100MCG/ML) SYRINGE (J2370) As Ordered ONE; -PROPOFOL 200 MG/20 ML VIAL As Ordered ONE
[2016-10-24 17:47] LABS: ANION GAP 9 MEQ/L (8-16); BLOOD UREA NITROGEN 10 MG/DL (7-18); CALCIUM LEVEL 8.9 MG/DL (8.5-10.1); CARBON DIOXIDE LEVEL 28 MEQ/L (21-32); CHLORIDE LEVEL 105 MEQ/L (98-107); CREATININE FOR GFR 0.89 MG/DL (0.70-1.30); GLOMERULAR FILTRATION RATE > 60.0 (>56); GLUCOSE, FASTING 291 MG/DL (70-105); POTASSIUM SERUM 4.1 MEQ/L (3.5-5.1); SODIUM LEVEL 142 MEQ/L (136-145)
[2016-10-24 19:28] LABS: BASO % 0.4 % (0.0-1.0); EOS # 0.2 K/mm3 (0.0-0.50); EOS % 1.2 % (0.0-3.0); LARGE UNSTAINED CELL # 0.2 K/mm3 (0.0-0.4); LARGE UNSTAINED CELL % 1.6 % (0.0-4.0); LYMPH % 14.5 % (24.0-44.0); MEAN CORPUSCULAR HEMOGLOBIN 26.9 pg (27.0-33.0); MONO # 0.8 K/mm3 (0.0-0.8); MONO % 6.5 % (0.0-5.0); NEUTROPHILS # 9.5 K/mm3 (1.8-7.7); NEUTROPHILS % 75.8 % (36.0-66.0); PLATELET COUNT, AUTOMATED 277 k/mm3 (150-450); RED CELL DISTRIBUTION WIDTH 15.3 % (11.5-14.5); WHITE BLOOD COUNT 12.5 K/mm3 (4.0-10.0)
[2016-10-24 20:26] LABS: ERYTHROCYTE SEDIMENTATION RATE 43 mm/hr (0-20)
== END ==
LOC: M SFHCPLAZ 12:37
PROVIDERS: ATTEND Internal Medicine Infectious Disease
DX: Z22.322 Carrier or suspected carrier of Methicillin resistant Staphylococcus aureus (principal); E11.621 Type 2 diabetes mellitus with foot ulcer

== ENCOUNTER → 2016-11-01 | Outpatient (CLI) | payer OTHER ==
--- NOTE | 2016-11-13 00:30 | ECWPNPC ---
PATIENT NAME: TIANNA BATES : 1965 GENDER: MALE VISIT DATE: 11/01/2016 DISCHARGE DATE: 11/01/16 1415 VISIT LOCKED DATE TIME: PHYSICIAN: KALPESH RATLIFF RESOURCE: KALPESH RATLIFF REASON FOR APPOINTMENT 1. BACK PAIN HISTORY OF PRESENT ILLNESS NEW PATIENT CONSULT: 51 Y/O MALE FOR CHRONIC LBP AND NEUROPATHY.THIS BEGAN SEVERAL YEARS AGO.RATING PAIN VAS 8/10.WAS RECIEVING INJECTION THERAPY AT DR. PETER BUT IT DIDNT HELP.WAS RECIEVING OXYCODONE 30MG QID AND OXYCODONE 5MG QID FROM DR. MCGREGOR UNTIL HE RETIRED IN MAY.CURRENTLY RECIEVING OXYCODONE 15MG QID FROM JAYSON PEREZ NP AND STATES MEDICATION IS ONLY SOMEWHAT EFFECTIVE.WORSE AREA OF PAIN IS STOMACH.HANDS THROB AND BURN. WHEN DID YOUR PAIN FIRST START? . BRIEFLY DESCRIBE HOW YOUR PAIN STARTED? . HOW DOES YOUR PAIN CHANGE WITH TIME? . DOES YOUR PAIN AWAKEN YOU FROM SLEEP? . HOW MANY HOURS OF SLEEP DO YOU NORMALLY GET? . ANY DIAGNOSTIC TESTING? . FACILITY WHERE TESTS WERE DONE? ____. PAIN TREATMENT TREATMENT YES CANCER HAVE YOU EVER HAD ANY TYPE OF CANCER?NO NO. PAIN SCREENING: PATIENT HAS A COMPLAINT OF ACUTE OR CHRONIC PAIN YES FALL RISK SCREENING: SCREENING :NO FALLS IN THE PAST YEAR LOPEZ INVENTORY: QUESTIONNAIRE ASSESSEDNO SCORE VALUE CALCULATED TBD CURRENT MEDICATIONS TAKING AMBIEN 10 MG TABLET 1 TABLET ORAL AT BEDTIME TAKING ZOFRAN 4 MG TABLET 1-2 TABLETS ORALLY EVERY 6HRS PRN TAKING VENTOLIN HFA 90 MCG/ACT AEROSOL SOLUTION 2 PUFFS NEEDED INHALATION EVERY 4 HRS TAKING COMBIVENT RESPIMAT 20-100 MCG/ACT AEROSOL SOLUTION 1 PUFF INHALATION FOUR TIMES A DAY TAKING OXYCODONE HCL 5 MG CAPSULE 1 CAPSULE NEEDED ORALLY EVERY 6 HRS TAKING DRISDOL 28547 UNIT CAPSULE 1 CAPSULE ORALLY EVERY SATURDAY TAKING BACID - TABLET 1 TAB ORALLY THREE TIMES DAILY TAKING QUESTRAN 4 GM PACKET 1 PACKET MIXED WITH WATER OR NON-CARBONATED DRINK ORALLY TWICE A DAY TAKING LUNESTA 1 MG TABLET 1 TABLET IMMEDIATELY BEFORE BEDTIME ORALLY ONCE A DAY TAKING FE TABS 325 (65 FE) MG TABLET DELAYED RELEASE 1 TABLET ORALLY ONCE A DAY TAKING ESOMEPRAZOLE MAGNESIUM 40 MG CAPSULE DELAYED RELEASE 1 CAPSULE ORALLY ONCE A DAY TAKING LYRICA 200 MG CAPSULE 1 CAPSULE ORALLY THREE TIMES A DAY TAKING OXYCODONE HCL 15 MG TABLET 1 TABLET NEEDED ORALLY QID TAKING TOUJEO SOLOSTAR 300 UNIT/ML SOLUTION PEN-INJECTOR 30 UNITS SUBCUTANEOUS TWICE DAILY TAKING CYMBALTA 30 MG CAPSULE DELAYED RELEASE PARTICLES 1 CAPSULE ORALLY ONCE A DAY TAKING BACTRIM DS 800-160 TABLET 1 TABLET ORALLY TWICE A DAY NOT-TAKING HUMALOG 100 UNIT/ML SOLUTION 6 UNITS SUBCUTANEOUS DAILY DISCONTINUED LINEZOLID 600 MG TABLET 1 TABLET ORALLY EVERY 12 HRS DISCONTINUED SULFAMETHOXAZOLE-TRIMETHOPRIM 800-160 MG TABLET 1 TABLET ORALLY TWICE A DAY MEDICATION LIST REVIEWED AND RECONCILED WITH THE PATIENT PAST MEDICAL HISTORY HYPERCHOLESTEROLEMIA CHRONIC ABDOMINAL PAIN COPD DM HYPERTENSION BACK PAIN FOR WHICH SHE IS FOLLOWED UP BY THE PAIN CLINIC FOR DEGENERATIVE DISC DISEASE WITH SCIATICA CHRONIC SLEEP DISORDER INSOMNIA PNEUMONIA CELLULITIS MARY LEGS GASTROPARESIS FX'D LEFT FOOT ALLERGIES N.K.D.A. SURGICAL HISTORY I&D LEFT FOOT 2017 LEFT FOOT LITTLE TOE AMPUTATION 2016 COLONOSCOPY 2017 FAMILY HISTORY FATHER: MOTHER: 2 SON(S) , 2 DAUGHTER(S) . SOCIAL HISTORY GENERAL: TOBACCO USE ARE YOU A:CURRENT SMOKER HOW MANY CIGARETTES A DAY DO YOU SMOKE? SMOKES 1 PPD PATIENT COUNSELED ON THE DANGERS OF TOBACCO USE AND URGED TO QUIT:11/01/2016 ARE YOU INTERESTED IN QUITTING?THINKING ABOUT QUITTING COUNSELED THE PATIENT ON SMOKING CESSATION, EDUCATION [id number] ALCOHOL SCREENING POINTS0 INTERPRETATIONNEGATIVE RECREATIONAL DRUG USE DRUG USE?NO CAFFEINE CAFFEINE USE?YES 2 SODAS/DAY. 1 POT OF COFFEE/DAY. OCCUPATION: DISABLED. DIET: CONSISTENT CARBOHYDRATE. EXERCISE: NONE. MARITAL STATUS: .. OTHERS AT HOME: NONE. ADVENTISM: NONE. LEARNING BARRIERS / SPECIAL NEEDS LEARNING PREFERENCES?YES :HANDOUTS, DEMONSTRATION/VERBAL INSTRUCTION MEDICATION ABUSE NO PSYCHOLOGICAL HX TREATMENTNO PAIN CLINIC PFS, CLERGY, PUBLIC HEALTH REFERRALS PFS REFERRAL NEEDED?NO CLERGY REFERRAL NEEDED?NO PUBLIC HEALTH REFERRAL NEEDED?NO WAS THE PROVIDER NOTIFIED OF ANY PERTINENT INFO?NO PATIENT: ____. ADVANCED DIRECTIVES HEALTH CARE PROXY?NO POWER OF MANUFACTURING PRODUCTION MANAGER?NO HOSPITALIZATION/MAJOR DIAGNOSTIC PROCEDURE CELLULITIS LEFT FOOT 2017 ABDOMINAL PAIN REVIEW OF SYSTEMS CONSTITUTIONAL: ANY CHANGE IN YOUR MEDICAL CONDITION? YES RECENT ADMIY FOR LEFT FOOT CELLULITIS-MRSA. FOLLOWS WITH DR PEDRO. . CHILLS YES, INTERMITTENTLY . FEVER NO . INFECTION: DO YOU HAVE NEW INFECTIONS? YES LEFT FOOT WOUND-MRSA . DO YOU HAVE HISTORY OF MRSA? YES-LEFT FOOT WOUND . MUSCULOSKELETAL: ANY NEW PATTERNS OF PAIN OR NUMBNESS? YES PT NOTES &QUOT;LONG HX OF MID-LOW BACK PAIN&QUOT;. WORSENED LAST 1 1/2 YRS. . SYTEMIC LUPUS NO . GASTROENTEROLOGY: ANY NEW CHANGE IN BOWEL CONTROL? YES HX OF CHRONIC DIARRHEA X 1 YR. COLONSCOPY X2 YRS.-FOLLOWS WITH DR EVANS. . BARRETTS ESOPHAGUS NO . CIRRHOSIS NO . HEPATITIS NO . LIVER FAILURE NO . ACID REFLUX YES . UNEXPLAINED WEIGHT LOSS NO . GENITOURINARY: ANY NEW CHANGE IN BLADDER CONTROL? NO . IS THERE A CHANCE YOU COULD BE ? NO . HEMATOLOGY/LYMPH: DO YOU TAKE ANY BLOOD THINNERS? (FOR EXAMPLE- COUMADIN, PLAVIX, AGGRENOX, PLATEL, PRADAXA, OR XARELTO) NO . WHEN WAS YOUR LAST DOSE? DATE: TIME: . LOW PLATELET COUNT NO . SICKLE CELL DISEASE NO . VON WILLIEBRANDS NO . FACTOR V LEIDEN NO . THALLASEMIA NO . ANEMIA NO . EASY BRUISING NO . NEUROLOGY: HAVE YOU FALLEN IN THE PAST 6 MONTHS? NO . ANY NEW EXTREMITY NUMBNESS OR WEAKNESS? YES NOTES HX OF NEUROPATHY. . HEAD INJURY NO . DEMENTIA NO . CEREBRAL PALSY NO . MULTIPLE SCLEROSIS NO . DIZZINESS INTERMITTENT, LASTING FEW SECONDS, WHILE GETTING UP FROM SITTING POSITION . HEADACHE ADMITS, SHARP, POUNDING, OCCIPITAL . STROKES NO . VERTIGO NO . CARDIOLOGY: DO YOU HAVE A PACEMAKER OR DEFIBRILLATOR? NO . ANGINA NO . HEART ATTACK NO . HEART SURGERY NO . CONGESTIVE HEART FAILURE/FLUID OVERLOAD NO . CHEST PAIN NO, PATIENT ADMITS, LEFT-SIDED, LESS FREQUENT . HIGH BLOOD PRESSURE NO . IRREGULAR HEART BEAT NO . RESPIRATORY: HAVE YOU BEEN SICK IN THE PAST WEEK? NO . FEVER NO . FLU LIKE SYMPTOMS? NO . CPAP NO . BYPAP NO . ASTHMA NO . EMPHYSEMA YES . CHRONIC LUNG DISEASES YES . SHORTNESS OF BREATH ON EXERTION YES . DO YOU USE ANY TYPE OF TOBACCO (SMOKE, SMOKELESS, CHEW)? YES 1 PPD . COUGH NO . SNORING NO . INTEGUMENTARY: DO YOU HAVE ANY RASHES OR OPEN SORES? YES LEFT/RIGHT FOOT . ALLERGIC/IMMUNO: ARE YOU ALLERGIC TO SHELLFISH OR IV DYE? NO . ANY NEW ALLERGIES? NO . PSYCHIATRIC: DO YOU HAVE THOUGHTS OF HURTING YOURSELF OR SOMEONE ELSE? NO . ARE YOU ABUSED, NEGLECTED, OR IN AN UNSAFE ENVIRONMENT? NO . ENDOCRINOLOGY: ARE YOU DIABETIC? YES . THYROID DISORDER NO . OTHER: DO YOU NEED ANY PRESCRIPTIONS? NO . IF YES, PLEASE LIST: ____ . ANY NEW PROBLEMS WITH YOUR MEDICATIONS? NO . WHEN DID YOU LAST EAT? ____ . WHEN DID YOU LAST DRINK? ____ . WHAT DID YOU LAST DRINK? ____ . NAME OF PERSON DRIVING YOU HOME? ____ . DO YOU HAVE ANY OTHER QUESTIONS OR CONCERNS NO . REVIEWED BY: PROVIDER: KALPESH ORTEGA . VITAL SIGNS WT 189.2 LBS, HT 71.5 IN, BMI 26.02 INDEX, BP 120/79 MM HG, HR 85 /MIN, RR 18 /MIN, TEMP 96.4 F, OXYGEN SAT % 94, NA INITIALS TL 1256, REVIEWED BY: MLF. EXAMINATION GENERAL EXAMINATION: GENERAL APPEARANCE:APPEARS UNCOMFORTABLE.. HEENT:NORMAL. NECK:NEGATIVE FOR LYMPHADENOPATHY. LUNGS:LUNG SOUNDS ARE CLEAR.RESPIRATIONS NON LABORED.. HEART:NORMAL S1S2, NORMAL SINUS RHYTHM. BACK:PAIN WITH EXTENSION AND PAIN WITH FLEXION.GENERALIZED TENDERNESS OVER ENTIRE SPINE AND PARASPINALS.. ABDOMEN:SOFT AND NOT TENDER. 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 PROCEDURE CODES FA211 ESTABILISHED PATIENT [facility] CHARGE DISPOSITION & COMMUNICATION FOLLOW UP F/U Kiah PEREZ-PRIMARY CARE ELECTRONICALLY SIGNED BY SHANNON MULLEN ON 11/12/2016 AT 05:00 PM EDT DISCLAIMER : THIS IS A VISIT SUMMARY EXTRACTED FROM THE [employer] CHART. IT IS NOT A COPY OF THE [employer] PROGRESS NOTE. ABRAHAM
== END ==
LOC: M PAIN 13:20
PROVIDERS: ATTEND Nurse Practitioner Family
DX: G89.29 Other chronic pain (principal); R10.84 Generalized abdominal pain; E10.42 Type 1 diabetes mellitus with diabetic polyneuropathy; E78.00 Pure hypercholesterolemia, unspecified; J44.9 Chronic obstructive pulmonary disease, unspecified; I10 Essential (primary) hypertension; G47.00 Insomnia, unspecified; F17.200 Nicotine dependence, unspecified, uncomplicated; R19.7 Diarrhea, unspecified; K21.9 Gastro-esophageal reflux disease without esophagitis; Z79.891 Long term (current) use of opiate analgesic; Z79.899 Other long term (current) drug therapy; Z79.4 Long term (current) use of insulin; Z86.14 Personal history of Methicillin resistant Staphylococcus aureus infection

== ENCOUNTER → 2016-11-07 | Outpatient (REF) | payer OTHER ==
[2016-11-07 18:17] LABS: BASO # 0.1 K/mm3 (0.0-0.2); BASO % 0.4 % (0.0-1.0); EOS # 0.4 K/mm3 (0.0-0.50); EOS % 2.6 % (0.0-3.0); LARGE UNSTAINED CELL # 0.3 K/mm3 (0.0-0.4); LYMPH # 2.5 K/mm3 (1.5-4.5); LYMPH % 15.7 % (24.0-44.0); MEAN CORPUSCULAR HEMOGLOBIN 26.9 pg (27.0-33.0); MEAN CORPUSCULAR HGB CONC 30.8 g/dl (32.0-36.5); MEAN CORPUSCULAR VOLUME 87.4 fl (80.0-96.0); MONO % 6.9 % (0.0-5.0); NEUTROPHILS # 10.2 K/mm3 (1.8-7.7); NEUTROPHILS % 72.5 % (36.0-66.0); PLATELET COUNT, AUTOMATED 350 k/mm3 (150-450); RED CELL DISTRIBUTION WIDTH 16.5 % (11.5-14.5); WHITE BLOOD COUNT 14.1 K/mm3 (4.0-10.0)
[2016-11-07 18:23] LABS: ANION GAP 9 MEQ/L (8-16); BLOOD UREA NITROGEN 16 MG/DL (7-18); CALCIUM LEVEL 8.4 MG/DL (8.5-10.1); CARBON DIOXIDE LEVEL 28 MEQ/L (21-32); CHLORIDE LEVEL 104 MEQ/L (98-107); CREATININE FOR GFR 1.03 MG/DL (0.70-1.30); GLOMERULAR FILTRATION RATE > 60.0 (>56); POTASSIUM SERUM 4.2 MEQ/L (3.5-5.1); SODIUM LEVEL 141 MEQ/L (136-145)
[2016-11-07 19:09] LABS: GLUCOSE, FASTING 34 MG/DL (70-105)
[2016-11-07 19:10] LABS: ERYTHROCYTE SEDIMENTATION RATE 52 mm/hr (0-20)
== END ==
LOC: M SFHCPLAZ 12:28
PROVIDERS: ATTEND Internal Medicine Infectious Disease
DX: Z22.322 Carrier or suspected carrier of Methicillin resistant Staphylococcus aureus (principal)

== ENCOUNTER → 2016-11-22 | Outpatient (REF) | payer OTHER ==
[2016-11-22 12:32] LABS: ANION GAP 6 MEQ/L (8-16); BLOOD UREA NITROGEN 12 MG/DL (7-18); CALCIUM LEVEL 9.3 MG/DL (8.5-10.1); CARBON DIOXIDE LEVEL 32 MEQ/L (21-32); CHLORIDE LEVEL 101 MEQ/L (98-107); CREATININE FOR GFR 0.82 MG/DL (0.70-1.30); GLOMERULAR FILTRATION RATE > 60.0 (>56); GLUCOSE, FASTING 268 MG/DL (70-105); SODIUM LEVEL 139 MEQ/L (136-145)
[2016-11-22 12:54] LABS: BASO # 0.1 K/mm3 (0.0-0.2); BASO % 0.6 % (0.0-1.0); EOS # 0.2 K/mm3 (0.0-0.50); EOS % 1.3 % (0.0-3.0); LARGE UNSTAINED CELL # 0.3 K/mm3 (0.0-0.4); LARGE UNSTAINED CELL % 2.7 % (0.0-4.0); LYMPH # 1.8 K/mm3 (1.5-4.5); LYMPH % 15.6 % (24.0-44.0); MEAN CORPUSCULAR HEMOGLOBIN 26.5 pg (27.0-33.0); MEAN CORPUSCULAR HGB CONC 30.5 g/dl (32.0-36.5); MEAN CORPUSCULAR VOLUME 87.1 fl (80.0-96.0); MONO # 0.8 K/mm3 (0.0-0.8); MONO % 6.7 % (0.0-5.0); NEUTROPHILS # 8.3 K/mm3 (1.8-7.7); PLATELET COUNT, AUTOMATED 254 k/mm3 (150-450); RED CELL DISTRIBUTION WIDTH 16.4 % (11.5-14.5); WHITE BLOOD COUNT 11.3 K/mm3 (4.0-10.0)
[2016-11-22 13:39] LABS: ERYTHROCYTE SEDIMENTATION RATE 37 mm/hr (0-20)
== END ==
LOC: M SFHCPLAZ 09:36
PROVIDERS: ATTEND Internal Medicine Infectious Disease
DX: Z22.322 Carrier or suspected carrier of Methicillin resistant Staphylococcus aureus (principal)

== ENCOUNTER → 2016-12-05 | Outpatient (REF) | payer OTHER ==
[~2016-12-05] MED LIST changes: -COLA100C PO; +COLA100C3 PO
== END ==
LOC: M LAB REF 16:51
PROVIDERS: ATTEND Nurse Practitioner Family
DX: E11.65 Type 2 diabetes mellitus with hyperglycemia (principal)

== ENCOUNTER → 2016-12-10 | Outpatient (REF) | payer OTHER | LOC: M LAB REF 16:32 | PROVIDERS: ATTEND Surgery | DX: L97.522 Non-pressure chronic ulcer of other part of left foot with fat layer exposed (principal) ==

== ENCOUNTER → 2017-01-03 | Outpatient (CLI) | payer OTHER ==
[~2017-01-03] MED LIST changes: +ISOVUE-370 76% 100ML VIAL (Q9967) As Ordered ONE
--- NOTE | 2017-01-04 03:26 | REP ---
Clinical: Type 2 diabetes with foot ulcer. Technique: Axial CT arterial angiographic images from the lung bases through the bilateral lower extremities using 100 ml Isovue 370 intravenous contrast material with coronal and sagittal re-formations. Findings: With respect to the vasculature, there is mild to moderate partially calcified atheromatous plaque material involving the infrarenal abdominal aorta as well as the bilateral common iliac arteries, internal iliac arteries (right greater than left), and to a much lesser extent the external iliac arteries. The bilateral lower extremity arteries are patent and normal through the ankle/midfoot. No atheromatous plaque material or narrowing through the bilateral lower extremity arteries appreciated and appropriate trifurcation and three-vessel runoff can be followed through the ankle bilaterally. A small area of ulceration/defect and subcutaneous infiltration along the posterior aspect of the left foot is identified and consistent with history of ulcer. No associated adjacent periosteal reaction or fluid collection is identified. Bilateral inguinal adenopathy (left greater than right) consistent with reactive changes related to acute process. Lung bases are relatively clear. Visualized portions of the heart and pericardium are normal. Liver, spleen, pancreas, gallbladder, bilateral adrenal glands and kidneys are normal in the current arterial phase of enhancement. The enteric system is without obstruction or acute inflammatory process. Pelvis demonstrates normal bladder and age appropriate prostate/seminal vesicles. Small fat containing left inguinal hernia. No ascites. No free air. No obvious intraperitoneal or retroperitoneal adenopathy. Impression: 1. Mild atheromatous changes involving the aorta and iliac arteries. The bilateral lower extremity arteries are normal. 2. Inflammatory changes and small focus of ulceration involving the left foot. 3. Bilateral inguinal adenopathy (left greater than right). Signed by Ehsan Naik MD 01/04/2017 03:18 A
== END ==
LOC: M RAD 13:49
PROVIDERS: ATTEND Surgery
DX: E11.621 Type 2 diabetes mellitus with foot ulcer (principal); L97.522 Non-pressure chronic ulcer of other part of left foot with fat layer exposed; L97.422 Non-pressure chronic ulcer of left heel and midfoot with fat layer exposed; L97.512 Non-pressure chronic ulcer of other part of right foot with fat layer exposed; I70.0 Atherosclerosis of aorta; R59.0 Localized enlarged lymph nodes

== ENCOUNTER 2017-02-08 11:20 | Inpatient (IN) | payer OTHER ==
[~2017-02-08] VITALS: Ht 180.3 cm; Wt 87.0 kg
[~2017-02-08 11:20] MED LIST changes: -ISOVUE-370 76% 100ML VIAL (Q9967) As Ordered ONE; -[UNRECOGNIZED DRUG - CODE] EX; +[UNRECOGNIZED DRUG - CODE] TOP
[2017-02-08] MEDS ORDERED: BISACODYL 10 MG SUPP PR PRN (12:15)
[2017-02-08 13:20] VITALS: BP 142/85
[2017-02-08] MEDS ORDERED: ALBUTEROL SULFATE 2.5 MG/0.5 ML INH NEB SOLN NEB PRN (13:45)
[2017-02-08] MEDS ORDERED: DEXTROSE 50% 50 ML SYRINGE IV PRN (13:45)
[2017-02-08] MEDS ORDERED: GLUCAGON FOR INJ 1 MG VIAL (J1610) SC PRN (13:45)
[2017-02-08] MEDS ORDERED: GLUCOSE 4 GM CHEW TABLET PO PRN (13:45)
[2017-02-08] MEDS ORDERED: OXYC1TAB23 PO (14:28)
[2017-02-08] MEDS ORDERED: LANS30CA PO (14:28)
[2017-02-08] MEDS ORDERED: SANT250O8 TOP (14:28)
[2017-02-08] MEDS ORDERED: OXYC-517 PO (14:28)
[2017-02-08] MEDS ORDERED: ZYVO100T PO (14:28)
[2017-02-08] MEDS ORDERED: ZALE10CA PO (14:28)
[2017-02-08] MEDS ORDERED: OXYC15TA76 PO (14:28)
[2017-02-08] MEDS ORDERED: INSUH10VL SC (14:32)
[2017-02-08] MEDS: SENOKOT S TAB PO SCH ×2 (14:48→20:42)
[2017-02-08] MEDS ORDERED: FUROSEMIDE 40 MG/4 ML VIAL (J1940) IV ONE (15:00)
[2017-02-08 16:27] LABS: BASO % 0.3 % (0.0-1.0); EOS # 0.4 K/mm3 (0.0-0.50); EOS % 2.5 % (0.0-3.0); LARGE UNSTAINED CELL # 0.3 K/mm3 (0.0-0.4); LYMPH # 1.7 K/mm3 (1.5-4.5); LYMPH % 10.3 % (24.0-44.0); MEAN CORPUSCULAR HEMOGLOBIN 26.4 pg (27.0-33.0); MEAN CORPUSCULAR HGB CONC 31.9 g/dl (32.0-36.5); MEAN CORPUSCULAR VOLUME 82.6 fl (80.0-96.0); MONO # 0.7 K/mm3 (0.0-0.8); MONO % 4.7 % (0.0-5.0); NEUTROPHILS # 11.1 K/mm3 (1.8-7.7); NEUTROPHILS % 80.1 % (36.0-66.0); PLATELET COUNT, AUTOMATED 358 k/mm3 (150-450); WHITE BLOOD COUNT 13.8 K/mm3 (4.0-10.0)
[2017-02-08] MEDS: CEFTAROLINE FOSAMIL 600 MG in D5W MINI-BAG PLUS 50 ML IV SCH (16:32)
[2017-02-08] MEDS: oxyCODONE 5MG TAB PO PRN (16:33)
[2017-02-08] MEDS: PREGABALIN 100 MG CAP (LYRICA) PO SCH ×2 (16:33→20:41)
[2017-02-08] MEDS: MORPHINE 4 MG/ML 1ML SYRINGE IV PRN ×2 (16:40→20:42)
[2017-02-08 16:48] LABS: ALBUMIN/GLOBULIN RATIO 0.73 (1.00-1.93); ALKALINE PHOSPHATASE 107 U/L (45-117); ALT/SGPT 10 U/L (12-78); ANION GAP 5 MEQ/L (8-16); AST/SGOT 7 U/L (15-37); BILIRUBIN,TOTAL 0.3 MG/DL (0.2-1.0); BLOOD UREA NITROGEN 13 MG/DL (7-18); CALCIUM LEVEL 8.8 MG/DL (8.5-10.1); CARBON DIOXIDE LEVEL 30 MEQ/L (21-32); CHLORIDE LEVEL 102 MEQ/L (98-107); CREATININE FOR GFR 0.84 MG/DL (0.70-1.30); GLOMERULAR FILTRATION RATE > 60.0 (>56); GLUCOSE, FASTING 189 MG/DL (70-105); POTASSIUM SERUM 4.6 MEQ/L (3.5-5.1); SODIUM LEVEL 137 MEQ/L (136-145); TOTAL PROTEIN 7.1 GM/DL (6.4-8.2)
[2017-02-08] MEDS: IPRATROPIUM 0.5MG/ALBUTEROL 2.5MG INH SOL UD 3ML (DUONEB)(J7620) NEB SCH ×2 (17:20→23:37)
[2017-02-08] MEDS: HumaLOG INSULIN (NovoLOG) PER UNIT SC SCH ×2 (18:29→21:21)
[2017-02-08] MEDS: zolPIDEM TARTRATE 10MG TAB PO SCH (20:41)
[2017-02-08] MEDS ORDERED: SANTYL OINT 30GM TOP SCH (21:00)
[2017-02-08] MEDS ORDERED: LEVEMIR (INSULIN DETEMIR) 1 UNITS/0.01ML SC SCH (21:00)
[2017-02-08 22:00] VITALS: BP 117/75
[2017-02-09] MEDS: CEFTAROLINE FOSAMIL 600 MG in D5W MINI-BAG PLUS 50 ML IV SCH ×2 (03:15→15:12)
[2017-02-09] MEDS: oxyCODONE 5MG TAB PO PRN ×3 (03:16→16:13)
[2017-02-09 06:00] VITALS: BP 114/66
[2017-02-09] MEDS: MORPHINE 4 MG/ML 1ML SYRINGE IV PRN ×4 (06:09→21:27)
[2017-02-09] MEDS: HumaLOG INSULIN (NovoLOG) PER UNIT SC SCH ×4 (07:30→20:56)
[2017-02-09] MEDS: IPRATROPIUM 0.5MG/ALBUTEROL 2.5MG INH SOL UD 3ML (DUONEB)(J7620) NEB SCH ×3 (07:54→22:45)
[2017-02-09 08:34] LABS: BASO # 0.1 K/mm3 (0.0-0.2); BASO % 0.5 % (0.0-1.0); EOS # 0.5 K/mm3 (0.0-0.50); EOS % 3.5 % (0.0-3.0); LARGE UNSTAINED CELL # 0.4 K/mm3 (0.0-0.4); LARGE UNSTAINED CELL % 2.5 % (0.0-4.0); LYMPH # 2.2 K/mm3 (1.5-4.5); LYMPH % 13.1 % (24.0-44.0); MEAN CORPUSCULAR HEMOGLOBIN 25.6 pg (27.0-33.0); MEAN CORPUSCULAR VOLUME 82.7 fl (80.0-96.0); MONO # 0.9 K/mm3 (0.0-0.8); NEUTROPHILS # 10.5 K/mm3 (1.8-7.7); NEUTROPHILS % 74.5 % (36.0-66.0); PLATELET COUNT, AUTOMATED 355 k/mm3 (150-450); WHITE BLOOD COUNT 14.2 K/mm3 (4.0-10.0)
[2017-02-09 09:06] LABS: ALBUMIN 2.6 GM/DL (3.2-5.2); ALKALINE PHOSPHATASE 91 U/L (45-117); ALT/SGPT 7 U/L (12-78); ANION GAP 4 MEQ/L (8-16); AST/SGOT 6 U/L (15-37); BILIRUBIN,TOTAL 0.2 MG/DL (0.2-1.0); BLOOD UREA NITROGEN 12 MG/DL (7-18); CALCIUM LEVEL 7.9 MG/DL (8.5-10.1); CARBON DIOXIDE LEVEL 30 MEQ/L (21-32); CHLORIDE LEVEL 100 MEQ/L (98-107); CREATININE FOR GFR 0.97 MG/DL (0.70-1.30); GLOMERULAR FILTRATION RATE > 60.0 (>56); GLUCOSE, FASTING 165 MG/DL (70-105); POTASSIUM SERUM 4.3 MEQ/L (3.5-5.1); SODIUM LEVEL 134 MEQ/L (136-145); TOTAL PROTEIN 6.3 GM/DL (6.4-8.2)
[2017-02-09 09:47] LABS: ERYTHROCYTE SEDIMENTATION RATE 70 mm/hr (0-20)
[2017-02-09] MEDS: SENOKOT S TAB PO SCH ×2 (10:05→20:28)
[2017-02-09] MEDS: DULoxetine 30 MG CAP (CYMBALTA) PO SCH (10:05)
[2017-02-09] MEDS: PANTOPRAZOLE 40MG TAB (PROTONIX) PO SCH (10:05)
[2017-02-09] MEDS: PREGABALIN 100 MG CAP (LYRICA) PO SCH ×3 (10:06→20:28)
[2017-02-09] MEDS: ENOXAPARIN 40 MG/0.4 ML SYRINGE (J1650) SC SCH (10:06)
[2017-02-09] MEDS: LACTIC ACID 12% LOTION 225 GM BTL TOP SCH (10:07)
[2017-02-09] MEDS: LEVEMIR (INSULIN DETEMIR) 1 UNITS/0.01ML SC SCH (12:08)
[2017-02-09 14:00] VITALS: BP 122/84
[2017-02-09] MEDS: CALCIUM CARBONATE 500 MG CHEW U/D PO PRN (17:31)
[2017-02-09] MEDS: zolPIDEM TARTRATE 10MG TAB PO SCH (21:27)
[2017-02-09 22:00] VITALS: BP 122/79
[2017-02-10] MEDS: oxyCODONE 5MG TAB PO PRN ×4 (00:29→22:02)
[2017-02-10] MEDS: CEFTAROLINE FOSAMIL 600 MG in D5W MINI-BAG PLUS 50 ML IV SCH ×2 (03:39→15:41)
[2017-02-10] MEDS: MORPHINE 4 MG/ML 1ML SYRINGE IV PRN ×3 (03:42→17:23)
[2017-02-10] MEDS: CALCIUM CARBONATE 500 MG CHEW U/D PO PRN (03:52)
[2017-02-10 06:00] VITALS: BP 118/71
[2017-02-10 06:24] LABS: BASO # 0.1 K/mm3 (0.0-0.2); BASO % 0.6 % (0.0-1.0); EOS # 0.4 K/mm3 (0.0-0.50); EOS % 3.8 % (0.0-3.0); LARGE UNSTAINED CELL # 0.3 K/mm3 (0.0-0.4); LARGE UNSTAINED CELL % 3.1 % (0.0-4.0); LYMPH # 2.4 K/mm3 (1.5-4.5); LYMPH % 21.1 % (24.0-44.0); MEAN CORPUSCULAR HEMOGLOBIN 25.7 pg (27.0-33.0); MEAN CORPUSCULAR HGB CONC 30.8 g/dl (32.0-36.5); MEAN CORPUSCULAR VOLUME 83.4 fl (80.0-96.0); MONO # 0.8 K/mm3 (0.0-0.8); MONO % 7.6 % (0.0-5.0); NEUTROPHILS # 6.3 K/mm3 (1.8-7.7); NEUTROPHILS % 63.9 % (36.0-66.0); PLATELET COUNT, AUTOMATED 353 k/mm3 (150-450); RED CELL DISTRIBUTION WIDTH 16.8 % (11.5-14.5); WHITE BLOOD COUNT 9.9 K/mm3 (4.0-10.0)
[2017-02-10 06:45] LABS: ERYTHROCYTE SEDIMENTATION RATE 67 mm/hr (0-20)
[2017-02-10 06:52] LABS: ALBUMIN 2.4 GM/DL (3.2-5.2); ALBUMIN/GLOBULIN RATIO 0.59 (1.00-1.93); ALKALINE PHOSPHATASE 97 U/L (45-117); ALT/SGPT 7 U/L (12-78); ANION GAP 2 MEQ/L (8-16); AST/SGOT 5 U/L (15-37); BILIRUBIN,TOTAL 0.2 MG/DL (0.2-1.0); BLOOD UREA NITROGEN 14 MG/DL (7-18); CALCIUM LEVEL 8.5 MG/DL (8.5-10.1); CARBON DIOXIDE LEVEL 33 MEQ/L (21-32); CHLORIDE LEVEL 101 MEQ/L (98-107); CREATININE FOR GFR 0.94 MG/DL (0.70-1.30); GLOMERULAR FILTRATION RATE > 60.0 (>56); GLUCOSE, FASTING 152 MG/DL (70-105); POTASSIUM SERUM 4.5 MEQ/L (3.5-5.1); SODIUM LEVEL 136 MEQ/L (136-145); TOTAL PROTEIN 6.5 GM/DL (6.4-8.2)
[2017-02-10] MEDS: IPRATROPIUM 0.5MG/ALBUTEROL 2.5MG INH SOL UD 3ML (DUONEB)(J7620) NEB SCH ×4 (08:00→23:08)
[2017-02-10] MEDS: PANTOPRAZOLE 40MG TAB (PROTONIX) PO SCH (08:07)
[2017-02-10] MEDS: HumaLOG INSULIN (NovoLOG) PER UNIT SC SCH ×4 (08:07→20:13)
[2017-02-10] MEDS: DULoxetine 30 MG CAP (CYMBALTA) PO SCH (08:07)
[2017-02-10] MEDS: PREGABALIN 100 MG CAP (LYRICA) PO SCH ×3 (08:07→20:17)
[2017-02-10] MEDS: SENOKOT S TAB PO SCH ×2 (08:08→20:18)
[2017-02-10] MEDS: ENOXAPARIN 40 MG/0.4 ML SYRINGE (J1650) SC SCH (08:08)
[2017-02-10] MEDS: LACTIC ACID 12% LOTION 225 GM BTL TOP SCH (10:45)
[2017-02-10] MEDS: LEVEMIR (INSULIN DETEMIR) 1 UNITS/0.01ML SC SCH (13:09)
[2017-02-10 14:00] VITALS: BP 132/77
[2017-02-10] MEDS: zolPIDEM TARTRATE 10MG TAB PO SCH (20:18)
[2017-02-10 22:00] VITALS: BP 127/59
[2017-02-11] MEDS: CEFTAROLINE FOSAMIL 600 MG in D5W MINI-BAG PLUS 50 ML IV SCH ×2 (03:01→15:07)
[2017-02-11] MEDS: MORPHINE 4 MG/ML 1ML SYRINGE IV PRN ×3 (03:38→20:04)
[2017-02-11 06:00] VITALS: BP 134/71
[2017-02-11 06:01] LABS: BASO % 0.6 % (0.0-1.0); EOS # 0.4 K/mm3 (0.0-0.50); EOS % 4.7 % (0.0-3.0); LARGE UNSTAINED CELL # 0.3 K/mm3 (0.0-0.4); LARGE UNSTAINED CELL % 2.9 % (0.0-4.0); LYMPH # 2.2 K/mm3 (1.5-4.5); LYMPH % 22.4 % (24.0-44.0); MEAN CORPUSCULAR HEMOGLOBIN 25.9 pg (27.0-33.0); MEAN CORPUSCULAR HGB CONC 30.9 g/dl (32.0-36.5); MEAN CORPUSCULAR VOLUME 84.1 fl (80.0-96.0); MONO # 0.7 K/mm3 (0.0-0.8); MONO % 8.6 % (0.0-5.0); NEUTROPHILS # 5.3 K/mm3 (1.8-7.7); NEUTROPHILS % 60.8 % (36.0-66.0); PLATELET COUNT, AUTOMATED 354 k/mm3 (150-450); RED CELL DISTRIBUTION WIDTH 16.8 % (11.5-14.5); WHITE BLOOD COUNT 8.7 K/mm3 (4.0-10.0)
[2017-02-11 06:32] LABS: ALBUMIN 2.4 GM/DL (3.2-5.2); ALBUMIN/GLOBULIN RATIO 0.59 (1.00-1.93); ALKALINE PHOSPHATASE 100 U/L (45-117); ALT/SGPT 9 U/L (12-78); ANION GAP 2 MEQ/L (8-16); AST/SGOT 7 U/L (15-37); BILIRUBIN,TOTAL 0.1 MG/DL (0.2-1.0); BLOOD UREA NITROGEN 12 MG/DL (7-18); CALCIUM LEVEL 8.5 MG/DL (8.5-10.1); CARBON DIOXIDE LEVEL 34 MEQ/L (21-32); CHLORIDE LEVEL 104 MEQ/L (98-107); CREATININE FOR GFR 0.83 MG/DL (0.70-1.30); GLOMERULAR FILTRATION RATE > 60.0 (>56); GLUCOSE, FASTING 172 MG/DL (70-105); POTASSIUM SERUM 4.3 MEQ/L (3.5-5.1); SODIUM LEVEL 140 MEQ/L (136-145); TOTAL PROTEIN 6.5 GM/DL (6.4-8.2)
[2017-02-11 06:55] LABS: ERYTHROCYTE SEDIMENTATION RATE 82 mm/hr (0-20)
[2017-02-11] MEDS: PREGABALIN 100 MG CAP (LYRICA) PO SCH ×3 (08:11→21:56)
[2017-02-11] MEDS: PANTOPRAZOLE 40MG TAB (PROTONIX) PO SCH (08:11)
[2017-02-11] MEDS: ENOXAPARIN 40 MG/0.4 ML SYRINGE (J1650) SC SCH (08:12)
[2017-02-11] MEDS: DULoxetine 30 MG CAP (CYMBALTA) PO SCH (08:12)
[2017-02-11] MEDS: HumaLOG INSULIN (NovoLOG) PER UNIT SC SCH ×4 (08:13→20:10)
[2017-02-11] MEDS: oxyCODONE 5MG TAB PO PRN ×2 (08:14→15:09)
[2017-02-11] MEDS: LACTIC ACID 12% LOTION 225 GM BTL TOP SCH (08:15)
[2017-02-11] MEDS: SENOKOT S TAB PO SCH ×2 (08:15→19:44)
[2017-02-11] MEDS: LEVEMIR (INSULIN DETEMIR) 1 UNITS/0.01ML SC SCH (12:23)
[2017-02-11 14:00] VITALS: BP 157/89
[2017-02-11] MEDS: IPRATROPIUM 0.5MG/ALBUTEROL 2.5MG INH SOL UD 3ML (DUONEB)(J7620) NEB SCH ×2 (15:21→23:56)
[2017-02-11] MEDS: zolPIDEM TARTRATE 10MG TAB PO SCH (21:56)
[2017-02-11 22:00] VITALS: BP 117/68
[2017-02-12] MEDS: oxyCODONE 5MG TAB PO PRN ×3 (02:23→14:55)
[2017-02-12] MEDS: CEFTAROLINE FOSAMIL 600 MG in D5W MINI-BAG PLUS 50 ML IV SCH ×2 (02:24→15:00)
[2017-02-12 05:48] LABS: BASO # 0.1 K/mm3 (0.0-0.2); EOS # 0.5 K/mm3 (0.0-0.50); EOS % 5.5 % (0.0-3.0); LARGE UNSTAINED CELL # 0.2 K/mm3 (0.0-0.4); LARGE UNSTAINED CELL % 2.3 % (0.0-4.0); LYMPH # 1.9 K/mm3 (1.5-4.5); LYMPH % 19.9 % (24.0-44.0); MEAN CORPUSCULAR VOLUME 83.7 fl (80.0-96.0); MONO # 0.6 K/mm3 (0.0-0.8); MONO % 6.8 % (0.0-5.0); NEUTROPHILS # 5.4 K/mm3 (1.8-7.7); NEUTROPHILS % 64.5 % (36.0-66.0); PLATELET COUNT, AUTOMATED 412 k/mm3 (150-450); RED CELL DISTRIBUTION WIDTH 16.8 % (11.5-14.5); WHITE BLOOD COUNT 8.4 K/mm3 (4.0-10.0)
[2017-02-12 06:00] VITALS: BP 134/92
[2017-02-12 06:08] LABS: ALBUMIN 2.6 GM/DL (3.2-5.2); ALBUMIN/GLOBULIN RATIO 0.58 (1.00-1.93); ALKALINE PHOSPHATASE 111 U/L (45-117); ALT/SGPT 8 U/L (12-78); ANION GAP 4 MEQ/L (8-16); AST/SGOT 11 U/L (15-37); BILIRUBIN,TOTAL 0.1 MG/DL (0.2-1.0); BLOOD UREA NITROGEN 11 MG/DL (7-18); CALCIUM LEVEL 8.6 MG/DL (8.5-10.1); CARBON DIOXIDE LEVEL 33 MEQ/L (21-32); CHLORIDE LEVEL 102 MEQ/L (98-107); CREATININE FOR GFR 0.96 MG/DL (0.70-1.30); GLOMERULAR FILTRATION RATE > 60.0 (>56); GLUCOSE, FASTING 246 MG/DL (70-105); POTASSIUM SERUM 4.7 MEQ/L (3.5-5.1); SODIUM LEVEL 139 MEQ/L (136-145); TOTAL PROTEIN 7.1 GM/DL (6.4-8.2)
[2017-02-12 06:44] LABS: ERYTHROCYTE SEDIMENTATION RATE 63 mm/hr (0-20)
[2017-02-12] MEDS: IPRATROPIUM 0.5MG/ALBUTEROL 2.5MG INH SOL UD 3ML (DUONEB)(J7620) NEB SCH (08:00)
[2017-02-12] MEDS: PANTOPRAZOLE 40MG TAB (PROTONIX) PO SCH (08:11)
[2017-02-12] MEDS: HumaLOG INSULIN (NovoLOG) PER UNIT SC SCH ×2 (08:11→12:00)
[2017-02-12] MEDS: DULoxetine 30 MG CAP (CYMBALTA) PO SCH (08:11)
[2017-02-12] MEDS: PREGABALIN 100 MG CAP (LYRICA) PO SCH ×2 (08:12→16:30)
[2017-02-12] MEDS: ENOXAPARIN 40 MG/0.4 ML SYRINGE (J1650) SC SCH (08:12)
[2017-02-12] MEDS: LACTIC ACID 12% LOTION 225 GM BTL TOP SCH (08:13)
[2017-02-12] MEDS: SENOKOT S TAB PO SCH (08:13)
[2017-02-12] MEDS: LEVEMIR (INSULIN DETEMIR) 1 UNITS/0.01ML SC SCH (12:16)
[2017-02-12] MEDS ORDERED: ZYVO100T PO (13:23)
[2017-02-12 14:00] VITALS: BP 131/70
== END 2017-02-12 16:42 | disposition home or self-care (01) | DRG 383 ==
LOC: M MSPAV 12:25
PROVIDERS: ADMIT Internal Medicine Nephrology; ATTEND Internal Medicine
DX: L03.116 Cellulitis of left lower limb (principal); E11.40 Type 2 diabetes mellitus with diabetic neuropathy, unspecified; E11.51 Type 2 diabetes mellitus with diabetic peripheral angiopathy without gangrene; I50.9 Heart failure, unspecified; E11.621 Type 2 diabetes mellitus with foot ulcer; E11.43 Type 2 diabetes mellitus with diabetic autonomic (poly)neuropathy; L97.519 Non-pressure chronic ulcer of other part of right foot with unspecified severity; L97.529 Non-pressure chronic ulcer of other part of left foot with unspecified severity; Z91.19 Patient's noncompliance with other medical treatment and regimen; M54.5 Low back pain; F17.200 Nicotine dependence, unspecified, uncomplicated; Z79.899 Other long term (current) drug therapy; B96.29 Other Escherichia coli [E. coli] as the cause of diseases classified elsewhere; B95.62 Methicillin resistant Staphylococcus aureus infection as the cause of diseases classified elsewhere; Z79.4 Long term (current) use of insulin; J44.9 Chronic obstructive pulmonary disease, unspecified; R10.9 Unspecified abdominal pain; Z88.8 Allergy status to other drugs, medicaments and biological substances; R29.6 Repeated falls

== ENCOUNTER → 2017-02-20 | Outpatient (REF) | payer OTHER ==
[~2017-02-20] MED LIST changes: -ACET-654 PO; +ACET1TAB17 PO; -CLON-404 PO; +CLON0.3T PO; -COLA100C3 PO; +COLA100C5 PO; +CYCL5TAB PO; +DULO30CA PO; +FERR1TAB8 PO; -FERR325T PO; +INSUH10VL SC; +KEFL500C17 PO; -KEFL500C7 PO; +LANS30CA PO; +NOVO1INJ4 SC; -NOVO70IN SC; -ONDA1TAB15 PO; +ONDA4TAB5 PO; +OXYC-517 PO; +OXYC15TA76 PO; +OXYC1TAB23 PO; +SANT250O8 TOP; -SILV1CRE19 TOP; +SILV1CRE60 TOP; +ZALE10CA PO
== END ==
LOC: M SFHCPLAZ 12:36
PROVIDERS: ATTEND Internal Medicine Infectious Disease
DX: A49.02 Methicillin resistant Staphylococcus aureus infection, unspecified site (principal); Z53.9 Procedure and treatment not carried out, unspecified reason

== ENCOUNTER → 2017-02-22 | Outpatient (CLI) | payer OTHER ==
[2017-02-22 12:26] LABS: BASO # 0.1 K/mm3 (0.0-0.2); BASO % 0.7 % (0.0-1.0); EOS # 0.2 K/mm3 (0.0-0.50); EOS % 2.4 % (0.0-3.0); LARGE UNSTAINED CELL # 0.2 K/mm3 (0.0-0.4); LARGE UNSTAINED CELL % 1.7 % (0.0-4.0); LYMPH # 2.2 K/mm3 (1.5-4.5); LYMPH % 21.3 % (24.0-44.0); MEAN CORPUSCULAR HEMOGLOBIN 25.9 pg (27.0-33.0); MEAN CORPUSCULAR VOLUME 83.5 fl (80.0-96.0); MONO # 0.5 K/mm3 (0.0-0.8); MONO % 4.9 % (0.0-5.0); NEUTROPHILS # 6.7 K/mm3 (1.8-7.7); PLATELET COUNT, AUTOMATED 327 k/mm3 (150-450); RED CELL DISTRIBUTION WIDTH 17.2 % (11.5-14.5); WHITE BLOOD COUNT 9.8 K/mm3 (4.0-10.0)
[2017-02-22 13:10] LABS: ERYTHROCYTE SEDIMENTATION RATE 51 mm/hr (0-20)
== END ==
LOC: M LAB 11:22
PROVIDERS: ATTEND Internal Medicine Infectious Disease
DX: A49.02 Methicillin resistant Staphylococcus aureus infection, unspecified site (principal)

== ENCOUNTER → 2017-03-08 | Outpatient (CLI) | payer OTHER ==
[2017-03-08 08:35] LABS: BASO # 0.1 K/mm3 (0.0-0.2); BASO % 0.5 % (0.0-1.0); EOS # 0.3 K/mm3 (0.0-0.50); EOS % 2.4 % (0.0-3.0); LYMPH # 1.2 K/mm3 (1.5-4.5); LYMPH % 8.5 % (24.0-44.0); MEAN CORPUSCULAR HEMOGLOBIN 25.9 pg (27.0-33.0); MEAN CORPUSCULAR HGB CONC 31.1 g/dl (32.0-36.5); MEAN CORPUSCULAR VOLUME 83.4 fl (80.0-96.0); MONO # 0.7 K/mm3 (0.0-0.8); MONO % 5.9 % (0.0-5.0); NEUTROPHILS # 10.2 K/mm3 (1.8-7.7); NEUTROPHILS % 81.3 % (36.0-66.0); RED CELL DISTRIBUTION WIDTH 19.7 % (11.5-14.5); WHITE BLOOD COUNT 12.5 K/mm3 (4.0-10.0)
[2017-03-08 08:51] LABS: ALBUMIN 3.1 GM/DL (3.2-5.2); ALBUMIN/GLOBULIN RATIO 0.89 (1.00-1.93); ALKALINE PHOSPHATASE 127 U/L (45-117); ALT/SGPT 10 U/L (12-78); ANION GAP 6 MEQ/L (8-16); AST/SGOT 8 U/L (15-37); BILIRUBIN,TOTAL 0.2 MG/DL (0.2-1.0); BLOOD UREA NITROGEN 13 MG/DL (7-18); CALCIUM LEVEL 8.3 MG/DL (8.5-10.1); CARBON DIOXIDE LEVEL 27 MEQ/L (21-32); CHLORIDE LEVEL 105 MEQ/L (98-107); CHOLESTEROL LEVEL 117 MG/DL (<200); CREATININE FOR GFR 0.92 MG/DL (0.70-1.30); GLOMERULAR FILTRATION RATE > 60.0 (>56); GLUCOSE, FASTING 288 MG/DL (70-105); POTASSIUM SERUM 4.6 MEQ/L (3.5-5.1); SODIUM LEVEL 138 MEQ/L (136-145); TOTAL PROTEIN 6.6 GM/DL (6.4-8.2); TRIGLYCERIDES LEVEL 138 MG/DL (<150)
== END ==
LOC: M LAB 07:30
PROVIDERS: ATTEND Physician Assistant Medical
DX: E11.49 Type 2 diabetes mellitus with other diabetic neurological complication (principal)

== ENCOUNTER → 2017-03-13 | Outpatient (CLI) | payer OTHER ==
[2017-03-13 10:39] LABS: BASO # 0.1 K/mm3 (0.0-0.2); BASO % 0.6 % (0.0-1.0); EOS # 0.3 K/mm3 (0.0-0.50); EOS % 1.9 % (0.0-3.0); LYMPH % 10.5 % (24.0-44.0); MEAN CORPUSCULAR HEMOGLOBIN 25.4 pg (27.0-33.0); MEAN CORPUSCULAR HGB CONC 30.6 g/dl (32.0-36.5); MEAN CORPUSCULAR VOLUME 83.2 fl (80.0-96.0); MONO # 0.9 K/mm3 (0.0-0.8); MONO % 5.3 % (0.0-5.0); NEUTROPHILS # 13.8 K/mm3 (1.8-7.7); NEUTROPHILS % 80.3 % (36.0-66.0); RED CELL DISTRIBUTION WIDTH 19.1 % (11.5-14.5); WHITE BLOOD COUNT 17.2 K/mm3 (4.0-10.0)
[2017-03-13 11:07] LABS: FERRITIN 77 NG/ML (26-388)
== END ==
LOC: M LAB 10:07
PROVIDERS: ATTEND Physician Assistant Medical
DX: D64.9 Anemia, unspecified (principal)

== ENCOUNTER → 2017-03-19 | Outpatient (REF) | payer OTHER | LOC: M LAB REF 16:20 | PROVIDERS: ATTEND Surgery | DX: A49.02 Methicillin resistant Staphylococcus aureus infection, unspecified site (principal) ==

== ENCOUNTER → 2017-04-09 | Outpatient (REF) | payer OTHER ==
[2017-04-09 19:49] LABS: MEAN CORPUSCULAR HGB CONC 28.9 g/dl (32.0-36.5); MEAN CORPUSCULAR VOLUME 86.7 fl (80.0-96.0); WHITE BLOOD COUNT 9.4 K/mm3 (4.0-10.0)
== END ==
LOC: M LAB REF 16:18
PROVIDERS: ATTEND Surgery
DX: A49.02 Methicillin resistant Staphylococcus aureus infection, unspecified site (principal)

== ENCOUNTER → 2017-04-16 | Outpatient (REF) | payer OTHER ==
[2017-04-16 15:22] LABS: BLOOD UREA NITROGEN 11 MG/DL (7-18); CREATININE FOR GFR 1.05 MG/DL (0.70-1.30); GLOMERULAR FILTRATION RATE > 60.0 (>56)
== END ==
LOC: M LAB REF 13:54
PROVIDERS: ATTEND Surgery
DX: A49.02 Methicillin resistant Staphylococcus aureus infection, unspecified site (principal)

== ENCOUNTER → 2017-04-17 | Outpatient (CLI) | payer OTHER | LOC: M PT 14:08 | PROVIDERS: ATTEND Surgery | DX: E11.621 Type 2 diabetes mellitus with foot ulcer (principal) ==

== ENCOUNTER → 2017-04-19 | Outpatient (CLI) | payer OTHER ==
--- NOTE | 2017-04-19 16:20 | REP ---
MRI left foot without and with IV gadolinium: History: Diabetic ulcer left foot. Comparison MRI study is from October 09, 2016. Comparison left foot radiographs are from September 2016. Technique: Axial, coronal, and sagittal imaging planes are utilized. T1 and T2-weighted scans were obtained in the usual fashion with and without fat saturation. Gadolinium enhancement dose: 18 ml of intravenous ProHance. MRI findings: There is a dressing surrounding a dermal defect at the posterior inferior calcaneus consistent with the ulcer. Calcaneal bone appears intact underlying this. No soft tissue abscess is seen. Normal T1-weighted signal intensity is seen here. There is a small zone of marrow edema again noted in the anterior calcaneus adjacent to the subtalar joint. There is some marrow edema in the talus as well. This pattern is essentially unchanged from the October 09, 2016 study. There is no significant gadolinium enhancement in the hind foot region. However, there is abnormal T1 and T2 signal intensity in the distal diaphysis and in the epiphysis of the fourth metatarsal as a new finding. Similarly, there is abnormal signal intensity in the proximal phalanx of the fourth toe. There is gadolinium enhancement along this distribution and in the adjacent soft tissues which are swollen. These are new findings compared to the prior MRI. There appears to be bone destruction in the distal 4th metatarsal and proximal phalanx of the fourth toe. Impression: 1. Abnormal bone signal intensity and evidence of bone destruction and surrounding soft tissue swelling consistent with osteomyelitis at the distal end of the fourth metatarsal and in the proximal phalanx of the fourth toe. Repeat radiographs are recommended. 2. No other evidence of osteomyelitis. Posteroinferior heel ulcer seen. No abscess seen. Signed by Charbel Lyons MD 04/19/2017 05:01 P
== END ==
LOC: M RAD 12:52
PROVIDERS: ATTEND Surgery
DX: E11.621 Type 2 diabetes mellitus with foot ulcer (principal)
CPT/HCPCS: 73720; A9576

== ENCOUNTER → 2017-04-26 | Outpatient (REF) | payer OTHER | LOC: M LAB REF 13:17 | PROVIDERS: ATTEND Internal Medicine Infectious Disease | DX: M86.172 Other acute osteomyelitis, left ankle and foot (principal) ==

== ENCOUNTER → 2017-05-06 | Outpatient (REF) | payer OTHER ==
[2017-05-06 14:46] LABS: ADD MORPHOLOGY? YES; BASO % 0.6 % (0.0-1.0); EOS # 0.5 K/mm3 (0.0-0.50); EOS % 4.9 % (0.0-3.0); LARGE UNSTAINED CELL # 0.3 K/mm3 (0.0-0.4); LARGE UNSTAINED CELL % 3.4 % (0.0-4.0); LYMPH # 0.9 K/mm3 (1.5-4.5); LYMPH % 9.9 % (24.0-44.0); MEAN CORPUSCULAR HEMOGLOBIN 25.5 pg (27.0-33.0); MEAN CORPUSCULAR HGB CONC 30.2 g/dl (32.0-36.5); MEAN CORPUSCULAR VOLUME 84.3 fl (80.0-96.0); MONO # 0.4 K/mm3 (0.0-0.8); MONO % 4.4 % (0.0-5.0); NEUTROPHILS # 7.2 K/mm3 (1.8-7.7); NEUTROPHILS % 76.8 % (36.0-66.0); PLATELET COUNT, AUTOMATED 306 k/mm3 (150-450); RED CELL DISTRIBUTION WIDTH 20.8 % (11.5-14.5); WHITE BLOOD COUNT 9.4 K/mm3 (4.0-10.0)
[2017-05-06 14:59] LABS: ANISOCYTOSIS 2+; HYPOCHROMASIA 1+
[2017-05-06 15:10] LABS: ERYTHROCYTE SEDIMENTATION RATE 28 mm/hr (0-20)
[2017-05-06 15:21] LABS: ANION GAP 5 MEQ/L (8-16); BLOOD UREA NITROGEN 12 MG/DL (7-18); CALCIUM LEVEL 8.5 MG/DL (8.5-10.1); CARBON DIOXIDE LEVEL 29 MEQ/L (21-32); CHLORIDE LEVEL 113 MEQ/L (98-107); CREATININE FOR GFR 0.85 MG/DL (0.70-1.30); GLOMERULAR FILTRATION RATE > 60.0 (>56); GLUCOSE, FASTING 153 MG/DL (70-105); POTASSIUM SERUM 4.5 MEQ/L (3.5-5.1); SODIUM LEVEL 147 MEQ/L (136-145)
== END ==
LOC: M LAB REF 13:16
PROVIDERS: ATTEND Internal Medicine Infectious Disease
DX: M86.172 Other acute osteomyelitis, left ankle and foot (principal)

== ENCOUNTER → 2017-05-08 | Outpatient (CLI) | payer OTHER ==
[2017-05-08 08:41] LABS: BASO # 0.1 K/mm3 (0.0-0.2); BASO % 0.9 % (0.0-1.0); EOS # 0.5 K/mm3 (0.0-0.50); EOS % 5.6 % (0.0-3.0); LYMPH # 2.1 K/mm3 (1.5-4.5); LYMPH % 22.4 % (24.0-44.0); MEAN CORPUSCULAR HEMOGLOBIN 24.7 pg (27.0-33.0); MEAN CORPUSCULAR HGB CONC 29.5 g/dl (32.0-36.5); MEAN CORPUSCULAR VOLUME 83.9 fl (80.0-96.0); MONO # 0.8 K/mm3 (0.0-0.8); MONO % 8.8 % (0.0-5.0); NEUTROPHILS # 5.3 K/mm3 (1.8-7.7); NEUTROPHILS % 60.2 % (36.0-66.0); RED CELL DISTRIBUTION WIDTH 21.3 % (11.5-14.5); WHITE BLOOD COUNT 8.7 K/mm3 (4.0-10.0)
[2017-05-08 09:00] LABS: ALBUMIN 3.5 GM/DL (3.2-5.2); ALBUMIN/GLOBULIN RATIO 0.97 (1.00-1.93); ALKALINE PHOSPHATASE 114 U/L (45-117); ALT/SGPT 14 U/L (12-78); ANION GAP 6 MEQ/L (8-16); AST/SGOT 17 U/L (15-37); BILIRUBIN,TOTAL 0.3 MG/DL (0.2-1.0); BLOOD UREA NITROGEN 11 MG/DL (7-18); CALCIUM LEVEL 8.7 MG/DL (8.5-10.1); CARBON DIOXIDE LEVEL 31 MEQ/L (21-32); CHLORIDE LEVEL 111 MEQ/L (98-107); CHOLESTEROL LEVEL 135 MG/DL (<200); FERRITIN 93 NG/ML (26-388); GLOMERULAR FILTRATION RATE > 60.0 (>56); GLUCOSE, FASTING 125 MG/DL (70-105); POTASSIUM SERUM 3.9 MEQ/L (3.5-5.1); SODIUM LEVEL 148 MEQ/L (136-145); TOTAL PROTEIN 7.1 GM/DL (6.4-8.2); TRIGLYCERIDES LEVEL 157 MG/DL (<150)
== END ==
LOC: M LAB 07:06
PROVIDERS: ATTEND Physician Assistant Medical
DX: E11.9 Type 2 diabetes mellitus without complications (principal); D64.9 Anemia, unspecified

== ENCOUNTER 2017-06-09 09:26 | Emergency (ER) | payer OTHER ==
[~2017-06-09] VITALS: Ht 180.3 cm; Wt 86.4 kg
[~2017-06-09 09:26] MED LIST changes: -CYCL5TAB PO; -DULO30CA PO
[2017-06-09] MEDS ORDERED: AMBI10TA PO (09:43)
[2017-06-09] MEDS ORDERED: DULO30CA PO (09:43)
[2017-06-09] MEDS ORDERED: MORPHINE 4 MG/ML 1ML SYRINGE IM ONE (10:15)
[2017-06-09] MEDS ORDERED: CYCL5TAB PO (11:26)
[2017-06-09 11:30] VITALS: BP 113/62
== END 2017-06-09 11:34 | disposition home or self-care (01) ==
LOC: EDBD 09:26 → M ED 09:26
DX: G89.29 Other chronic pain (principal); M54.5 Low back pain; E11.9 Type 2 diabetes mellitus without complications; I10 Essential (primary) hypertension; J44.9 Chronic obstructive pulmonary disease, unspecified; M19.90 Unspecified osteoarthritis, unspecified site; K21.9 Gastro-esophageal reflux disease without esophagitis; Z79.899 Other long term (current) drug therapy; Z79.4 Long term (current) use of insulin; Z88.8 Allergy status to other drugs, medicaments and biological substances; F17.210 Nicotine dependence, cigarettes, uncomplicated
CPT/HCPCS: 96372; 99283; J3360

== ENCOUNTER → 2017-07-11 | Outpatient (CLI) | payer OTHER ==
[~2017-07-11] MED LIST changes: +CYCL5TAB PO; +DULO30CA PO
[2017-07-11 10:14] LABS: BASO # 0.1 10^3/uL (0.0-0.2); BASO % 0.9 % (0.0-1.0); EOS # 0.3 10^3/uL (0.0-0.50); EOS % 2.5 % (0.0-3.0); IMMATURE GRANULOCYTE % 0.3 % (0-0); LYMPH # 1.8 10^3/uL (1.5-4.5); LYMPH % 17.8 % (24.0-44.0); MEAN CORPUSCULAR HEMOGLOBIN 25.7 pg (27.0-33.0); MEAN CORPUSCULAR HGB CONC 31.6 g/dl (32.0-36.5); MEAN CORPUSCULAR VOLUME 81.4 fl (80.0-96.0); MONO # 0.6 10^3/uL (0.0-0.8); MONO % 6.4 % (0.0-5.0); NEUTROPHILS # 7.2 10^3/uL (1.8-7.7); NEUTROPHILS % 72.1 % (36.0-66.0); PLATELET COUNT, AUTOMATED 285 10^3/uL (150-450); RED CELL DISTRIBUTION WIDTH 18.9 % (11.5-14.5); WHITE BLOOD COUNT 9.9 10^3/uL (4.0-10.0)
[2017-07-11 10:47] LABS: ALBUMIN 3.5 GM/DL (3.2-5.2); ALBUMIN/GLOBULIN RATIO 0.95 (1.00-1.93); ALKALINE PHOSPHATASE 111 U/L (45-117); ALT/SGPT 14 U/L (12-78); ANION GAP 7 MEQ/L (8-16); AST/SGOT 10 U/L (7-37); BILIRUBIN,TOTAL 0.3 MG/DL (0.2-1.0); BLOOD UREA NITROGEN 11 MG/DL (7-18); CALCIUM LEVEL 8.8 MG/DL (8.5-10.1); CARBON DIOXIDE LEVEL 30 MEQ/L (21-32); CHLORIDE LEVEL 104 MEQ/L (98-107); CHOLESTEROL LEVEL 185 MG/DL (<200); CREATININE FOR GFR 0.88 MG/DL (0.70-1.30); GLOMERULAR FILTRATION RATE > 60.0 (>56); GLUCOSE, FASTING 258 MG/DL (70-105); POTASSIUM SERUM 3.8 MEQ/L (3.5-5.1); SODIUM LEVEL 141 MEQ/L (136-145); T UPTAKE 36 % (33-40); THYROXINE (T4) 9.9 UG/DL (4.5-12.0); TOTAL PROTEIN 7.2 GM/DL (6.4-8.2); TRIGLYCERIDES LEVEL 172 MG/DL (<150)
--- NOTE | 2017-07-12 13:23 | ECGEPIP ---
Stationary ECG Study [facility] Test Date: 2017-07-11 Pat Name: TIANNA BATES Department: Room: - Gender: M [employer]: IGLESIA : 1965 Requested By: Viry Cosby Order Number: [id number] Reading MD: Galindo Cox Measurements Intervals [place] Rate: 76 P: 43 NH: 200 QRS: 59 QRSD: 101 T: 30 QT: 388 QTc: 437 Interpretive Statements SINUS RHYTHM WITH FREQUENT VENTRICULAR PREMATURE COMPLEXES INCOMPLETE RIGHT BUNDLE BRANCH BLOCK ABNORMAL RHYTHM ECG Compared to the last 2 tracings, no significant changes Electronically Signed On 07-12-2017 13:23:07 EST by Galindo Cox
== END ==
LOC: M LAB 09:21
PROVIDERS: ATTEND Physician Assistant Medical
DX: I10 Essential (primary) hypertension (principal)

== ENCOUNTER → 2017-07-22 | Outpatient (CLI) | payer OTHER ==
--- NOTE | 2017-07-22 08:13 | REP ---
Clinical: Abdominal pain with nausea and vomiting. Technique: Real time duarte scale ultrasound examination using curved array transducer. Findings: Liver demonstrates mild fatty infiltration without focal hepatic lesion identified. The spleen is mildly enlarged measuring 13.8 x 3.5 x 13.4 cm, but without focal splenic lesion identified. The pancreas is incompletely evaluated due to interposed bowel gas but visualized portions appear normal. The gallbladder is unremarkable and without gallstones, wall thickening, or pericholecystic fluid. No biliary ductal dilatation is appreciated and the common bile duct measures 3.4 mm diameter. The bilateral kidneys are normal in reniform shape without hydronephrosis. Right kidney measures 11.4 x 5.6 x 4.5 cm. Left kidney measures 12.1 x 5.6 x 6.1 cm. Abdominal aorta is incompletely evaluated due to interposed bowel gas. No ascites. Impression: Mild fatty infiltration to the liver without focal hepatic lesion. Mild splenomegaly without focal splenic lesion. Otherwise normal complete abdominal ultrasound. Signed by Ehsan Naik MD 07/22/2017 08:04 A
== END ==
LOC: M RAD 06:12
PROVIDERS: ATTEND Physician Assistant Medical
DX: R10.84 Generalized abdominal pain (principal); K76.0 Fatty (change of) liver, not elsewhere classified; R16.1 Splenomegaly, not elsewhere classified

== ENCOUNTER 2017-09-02 20:27 | Emergency (ER) | payer OTHER ==
[2017-09-02 23:37] LABS: BASO # 0.1 10^3/uL (0.0-0.2); BASO % 0.7 % (0.0-1.0); EOS # 0.5 10^3/uL (0.0-0.50); EOS % 4.4 % (0.0-3.0); HEMATOCRIT 36.7 % (42.0-52.0); HEMOGLOBIN 11.5 g/dl (14.0-18.0); IMMATURE GRANULOCYTE # 0.1 10^3/uL (0-0); IMMATURE GRANULOCYTE % 0.4 % (0-0); LYMPH # 2.1 10^3/uL (1.5-4.5); LYMPH % 17.1 % (24.0-44.0); MEAN CORPUSCULAR HEMOGLOBIN 26.5 pg (27.0-33.0); MEAN CORPUSCULAR HGB CONC 31.3 g/dl (32.0-36.5); MEAN CORPUSCULAR VOLUME 84.6 fl (80.0-96.0); MONO # 1.1 10^3/uL (0.0-0.8); MONO % 9.2 % (0.0-5.0); NEUTROPHILS # 8.3 10^3/uL (1.8-7.7); NEUTROPHILS % 68.2 % (36.0-66.0); PLATELET COUNT, AUTOMATED 284 10^3/uL (150-450); RED BLOOD COUNT 4.34 10^6/uL (4.30-6.10); RED CELL DISTRIBUTION WIDTH 17.2 % (11.5-14.5); WHITE BLOOD COUNT 12.2 10^3/uL (4.0-10.0)
[2017-09-02] MEDS: NS 1,000 ML IV (23:38)
[2017-09-02 23:59] LABS: ALBUMIN/GLOBULIN RATIO 0.59 (1.00-1.93); ALKALINE PHOSPHATASE 83 U/L (45-117); ALT/SGPT 8 U/L (12-78); ANION GAP 3 MEQ/L (8-16); AST/SGOT 6 U/L (7-37); BILIRUBIN,TOTAL 0.2 MG/DL (0.2-1.0); BLOOD UREA NITROGEN 11 MG/DL (7-18); CALCIUM LEVEL 8.6 MG/DL (8.5-10.1); CARBON DIOXIDE LEVEL 35 MEQ/L (21-32); CHLORIDE LEVEL 102 MEQ/L (98-107); CREATININE FOR GFR 1.01 MG/DL (0.70-1.30); GLOMERULAR FILTRATION RATE > 60.0 (>56); GLUCOSE, FASTING 141 MG/DL (70-105); LIPASE 76 U/L (73-393); SODIUM LEVEL 140 MEQ/L (136-145); TOTAL PROTEIN 8.1 GM/DL (6.4-8.2)
== END 2017-09-03 01:29 | disposition home or self-care (01) ==
LOC: M ED 09-03 01:29
DX: R10.32 Left lower quadrant pain (principal); K57.90 Diverticulosis of intestine, part unspecified, without perforation or abscess without bleeding; G62.9 Polyneuropathy, unspecified; F17.200 Nicotine dependence, unspecified, uncomplicated; Z79.84 Long term (current) use of oral hypoglycemic drugs; Z79.891 Long term (current) use of opiate analgesic; Z79.899 Other long term (current) drug therapy; Z88.8 Allergy status to other drugs, medicaments and biological substances
CPT/HCPCS: 74176

== ENCOUNTER → 2017-10-01 | Outpatient (REF) | payer OTHER ==
[2017-10-01 17:57] LABS: APPEARANCE, URINE CLEAR (CLEAR); BACTERIA, URINE AUTO NEGATIVE (NEGATIVE); BILIRUBIN, URINE AUTO NEGATIVE (NEGATIVE); BLOOD, URINE BLOOD 2+ (NEGATIVE); COLOR, URINE YELLOW (YELLOW); GLUCOSE, URINE (UA) AUTO NEGATIVE (NEGATIVE); KETONE, URINE AUTO NEGATIVE (NEGATIVE); LEUKOCYTE ESTERASE, URINE AUTO NEGATIVE (NEGATIVE); NITRITE, URINE AUTO NEGATIVE (NEGATIVE); PROTEIN, URINE AUTO 2+ mg/dL (NEGATIVE); RBC, URINE AUTO 12 /HPF (0-3); SPECIFIC GRAVITY URINE AUTO 1.011 (1.002-1.035); SQUAMOUS EPITHELIAL CELL UR AU 0 /HPF (0-6); UROBILINOGEN, URINE AUTO 0.2 mg/dL (0.0-2.0); WBC, URINE AUTO 3 /HPF (0-3)
== END ==
LOC: M SMT 16:13
DX: N32.89 Other specified disorders of bladder (principal)

== ENCOUNTER 2017-10-10 10:21 | Day surgery (SDC) | payer OTHER ==
[2017-10-10] MEDS: NS 1,000 ML IV (10:45)
== END 2017-10-10 12:45 | disposition home or self-care (01) ==
LOC: M OPP 10:21
DX: R10.84 Generalized abdominal pain (principal); Z86.010 Personal history of colon polyps; R19.7 Diarrhea, unspecified; R15.9 Full incontinence of feces; D12.2 Benign neoplasm of ascending colon; K57.30 Diverticulosis of large intestine without perforation or abscess without bleeding; K64.8 Other hemorrhoids; R00.8 Other abnormalities of heart beat; R07.89 Other chest pain; I10 Essential (primary) hypertension; E78.5 Hyperlipidemia, unspecified; E11.40 Type 2 diabetes mellitus with diabetic neuropathy, unspecified; K57.32 Diverticulitis of large intestine without perforation or abscess without bleeding; R12 Heartburn; K21.9 Gastro-esophageal reflux disease without esophagitis; K31.84 Gastroparesis; R06.02 Shortness of breath; M19.90 Unspecified osteoarthritis, unspecified site; M54.9 Dorsalgia, unspecified; F32.9 Major depressive disorder, single episode, unspecified; G43.909 Migraine, unspecified, not intractable, without status migrainosus; R56.9 Unspecified convulsions; J44.9 Chronic obstructive pulmonary disease, unspecified; E11.621 Type 2 diabetes mellitus with foot ulcer; L97.429 Non-pressure chronic ulcer of left heel and midfoot with unspecified severity; R25.1 Tremor, unspecified; F17.210 Nicotine dependence, cigarettes, uncomplicated; B95.62 Methicillin resistant Staphylococcus aureus infection as the cause of diseases classified elsewhere; Z89.421 Acquired absence of other right toe(s); Z88.8 Allergy status to other drugs, medicaments and biological substances; Z79.82 Long term (current) use of aspirin; Z79.899 Other long term (current) drug therapy; Z79.4 Long term (current) use of insulin; Z80.1 Family history of malignant neoplasm of trachea, bronchus and lung
CPT/HCPCS: 45385

== ENCOUNTER → 2017-10-14 | Outpatient (REF) | payer OTHER ==
[2017-10-14 19:24] LABS: ALBUMIN 2.8 GM/DL (3.2-5.2); ALBUMIN/GLOBULIN RATIO 0.67 (1.00-1.93); ALKALINE PHOSPHATASE 114 U/L (45-117); ALT/SGPT 7 U/L (12-78); ANION GAP 6 MEQ/L (8-16); AST/SGOT 8 U/L (7-37); BILIRUBIN,TOTAL 0.2 MG/DL (0.2-1.0); BLOOD UREA NITROGEN 12 MG/DL (7-18); C REACTIVE PROTEIN QUANTITATIV 6.58 MG/DL (0.00-0.30); CALCIUM LEVEL 8.3 MG/DL (8.5-10.1); CARBON DIOXIDE LEVEL 32 MEQ/L (21-32); CHLORIDE LEVEL 102 MEQ/L (98-107); CREATININE FOR GFR 0.85 MG/DL (0.70-1.30); GLOMERULAR FILTRATION RATE > 60.0 (>56); GLUCOSE, FASTING 209 MG/DL (70-100); POTASSIUM SERUM 4.5 MEQ/L (3.5-5.1); SODIUM LEVEL 140 MEQ/L (136-145)
[2017-10-14 19:37] LABS: ESTIMATED AVERAGE GLUCOSE 200 MG/DL (60-110); HEMOGLOBIN A1c 8.6 %
[2017-10-14 20:14] LABS: ERYTHROCYTE SEDIMENTATION RATE 80 mm/hr (0-20)
== END ==
LOC: M LAB REF 17:47
DX: E11.621 Type 2 diabetes mellitus with foot ulcer (principal); L97.423 Non-pressure chronic ulcer of left heel and midfoot with necrosis of muscle; L97.822 Non-pressure chronic ulcer of other part of left lower leg with fat layer exposed

== ENCOUNTER → 2017-10-18 | Outpatient (CLI) | payer OTHER ==
[~2017-10-18] MED LIST changes: -/ADVA50050; -/AMIT10TA PO; -/DULO30CA OR; -/ESOM40CA OR; -/FENT25PA TD; -/METH500TA PO; -ACET1TAB17 PO; -ACTO45TA; -ADV250INH INH; -ADVA250A IN; -ALBU17IN INH; -AMBI10TA OR; -AMBI10TA PO; -AMBI5TAB PO; -AMIT10TA PO; -AMIT25TA PO; -AMIT25TA2 OR; -AMLO10TA2 PO; -ASPI1TAB PO; -ASPI81TA7 PO; -BACL10TA2 OR; -BACT800T5 PO; -CHOL4POW4 PO; -CLON0.3T PO; -COLA100C5 PO; -COMBAER6 INH; -CRES5TAB; -CRES5TAB PO; -CYCL5TAB PO; -DICL500C PO; -DICL75TA PO; -DOXY-278 PO; -DOXY100C PO; -DULO1CAP2 PO; -DULO30CA PO; -ERYT25TA PO; -EXFORGE; -EXFORGE OR; -Exforge PO; -FERR1TAB8 PO; -HUMULIN N SC; -HYDR-3363 PO; -HYDR1CRE63 TOP; -HYDR25TA6 OR; -INSUH10VL SC; -INSULIN 70/30 SC; -KEFL500C17 PO; -LANS30CA PO; -LOMO2.5T PO; -LOSA100T36 PO; -LOVA40TA PO; -LYRI200C PO; -LYRI75CA OR; -NEXI40CA PO; -NORT10CA2 PO; -NOVO1INJ4 SC; -NOVO70VL SC; -OMEP40CA2 PO; -ONDA4TAB5 PO; -OXYC-517 PO; -OXYC15TA76 PO; -OXYC1TAB23 PO; -OXYC30TA84 PO; -PENT400T PO; +PROHANCE 279.3MG/ML 15ML VIAL (A9576) As Ordered; +PROHANCE 279.3MG/ML 5ML VIAL (A9576) As Ordered; -SANT250O8 TOP; -SILV1CRE60 TOP; -SOMA350T OR; -SOMA350T PO; -SPIR25TA2 OR; -TOUJ1.2I SC; -TYLE650T30 PO; -VICO5TAB OR; -VITA200028 PO; -VOLT1GEL EX; -ZALE10CA PO; -ZANA4CAP OR; -ZYVO100T PO; -[UNRECOGNIZED DRUG - CODE] TOP; -[UNRECOGNIZED DRUG - OTHER]; -[UNRECOGNIZED DRUG - OTHER] PO; -kadian PO; -oxycodone IR PO; -trental PO
== END ==
LOC: M RAD 08:49
DX: E11.621 Type 2 diabetes mellitus with foot ulcer (principal); L97.429 Non-pressure chronic ulcer of left heel and midfoot with unspecified severity
CPT/HCPCS: A9576

== ENCOUNTER → 2017-10-21 | Outpatient (REF) | payer OTHER | LOC: M LAB REF 17:22 | DX: E11.621 Type 2 diabetes mellitus with foot ulcer (principal) ==

== ENCOUNTER 2017-10-25 16:04 | Inpatient (IN) | payer OTHER ==
[2017-10-25] MEDS: oxyCODONE 5MG TAB PO (16:36)
[2017-10-25 17:16] LABS: HEMATOCRIT 29.8 % (42.0-52.0); HEMOGLOBIN 9.6 g/dl (14.0-18.0); MEAN CORPUSCULAR HEMOGLOBIN 25.6 pg (27.0-33.0); MEAN CORPUSCULAR HGB CONC 32.2 g/dl (32.0-36.5); MEAN CORPUSCULAR VOLUME 79.5 fl (80.0-96.0); PLATELET COUNT, AUTOMATED 388 10^3/uL (150-450); RED BLOOD COUNT 3.75 10^6/uL (4.30-6.10); WHITE BLOOD COUNT 29.6 10^3/uL (4.0-10.0)
[2017-10-25] MEDS: VANCOMYCIN HCL 1,000 MG, VIAL MATE ADAPTER 1 EACH in D5W 250 ML IV (17:30)
[2017-10-25] MEDS ORDERED: GLUCAGON FOR INJ 1 MG VIAL (J1610) SC (17:45)
[2017-10-25] MEDS ORDERED: GLUCOSE 4 GM CHEW TABLET PO (17:45)
[2017-10-25] MEDS ORDERED: VANCOMYCIN HCL 750 MG, VIAL MATE ADAPTER 1 EACH in D5W 250 ML IV (17:45)
[2017-10-25] MEDS ORDERED: DEXTROSE 50% 50 ML SYRINGE IV (17:45)
[2017-10-25 17:46] LABS: ANION GAP 7 MEQ/L (8-16); BLOOD UREA NITROGEN 29 MG/DL (7-18); CALCIUM LEVEL 8.3 MG/DL (8.5-10.1); CARBON DIOXIDE LEVEL 29 MEQ/L (21-32); CHLORIDE LEVEL 95 MEQ/L (98-107); CREATININE FOR GFR 1.38 MG/DL (0.70-1.30); GLOMERULAR FILTRATION RATE 57.4 (>56); GLUCOSE, FASTING 394 MG/DL (70-100); POTASSIUM SERUM 4.8 MEQ/L (3.5-5.1); SODIUM LEVEL 131 MEQ/L (136-145); VALPROIC ACID (DEPAKOTE) < 3.0 UG/ML (50.0-100.0)
[2017-10-25 17:47] LABS: ADD MANUAL DIFFER YES; POSITIVE DIFF POS FLAG
[2017-10-25 17:48] LABS: DIFF SLIDE NUMBER 257
[2017-10-25 18:08] LABS: ERYTHROCYTE SEDIMENTATION RATE 103 mm/hr (0-20)
[2017-10-25 18:15] LABS: BEDSIDE GLUCOSE 380 MG/DL (70-105)
[2017-10-25] MEDS ORDERED: NS 1,000 ML IV (18:15)
[2017-10-25] MEDS: PIPERACILLIN/TAZOBACTAM SOD 3.375 GM in APPROPRIATE DILUENT 1 EA IV ×2 (18:27→23:15)
[2017-10-25] MEDS ORDERED: IPRATROPIUM 0.5MG/ALBUTEROL 2.5MG INH SOL UD 3ML (DUONEB)(J7620) INH (18:30)
[2017-10-25] MEDS ORDERED: METOCLOPRAMIDE 5 MG TAB PO (18:30)
[2017-10-25] MEDS ORDERED: zolPIDEM TARTRATE 10MG TAB PO (18:30)
[2017-10-25 18:36] LABS: EOSINOPHILS 2 % (0-5); LYMPHOCYTES 2 % (16-52); MONOCYTES 7 % (0-8); NEUTROPHILS 89 % (35-75)
[2017-10-25 18:44] LABS: ANISOCYTOSIS 1+; HYPOCHROMASIA 2+
[2017-10-25 18:45] LABS: PLATELET ESTIMATE NORMAL (NORMAL)
[2017-10-25] MEDS: HumaLOG INSULIN (NovoLOG) PER UNIT SC ×2 (19:00→22:19)
[2017-10-25 19:10] LABS: LACTIC ACID SEPSIS PROTOCOL 1.2 MMOL/L (0.4-2.0)
[2017-10-25] MEDS: ACETAMINOPHEN TAB 650MG DOSE (2X325MG) PO (21:18)
[2017-10-25 22:05] LABS: BEDSIDE GLUCOSE 214 MG/DL (70-105)
[2017-10-25] MEDS: HEPARIN SOD (PORCINE) 5000 UNITS/ML VIAL SQ (22:17)
[2017-10-25] MEDS: FERROUS SULFATE 325MG TAB PO (22:18)
[2017-10-25] MEDS: NS 1,000 ML IV (22:18)
[2017-10-25] MEDS: PREGABALIN 100 MG CAP (LYRICA) PO (22:18)
[2017-10-25] MEDS: LEVEMIR (INSULIN DETEMIR) 1 UNITS/0.01ML SC (22:19)
[2017-10-25] MEDS ORDERED: zolPIDEM TARTRATE 5 MG TAB PO (23:15)
[2017-10-25] MEDS: PERCOCET 5MG/325MG TAB PO (23:33)
[2017-10-26] MEDS: VANCOMYCIN HCL 1,000 MG, VIAL MATE ADAPTER 1 EACH in D5W 250 ML IV ×3 (00:13→15:22)
[2017-10-26] MEDS: PERCOCET 5MG/325MG TAB PO (04:24)
[2017-10-26] MEDS: PIPERACILLIN/TAZOBACTAM SOD 3.375 GM in APPROPRIATE DILUENT 1 EA IV ×4 (04:32→23:07)
[2017-10-26] MEDS: NS 1,000 ML IV ×3 (06:39→13:22)
[2017-10-26] MEDS: HEPARIN SOD (PORCINE) 5000 UNITS/ML VIAL SQ (06:39)
[2017-10-26 07:10] LABS: HEMATOCRIT 26.4 % (42.0-52.0); HEMOGLOBIN 8.7 g/dl (14.0-18.0); MEAN CORPUSCULAR HEMOGLOBIN 26.4 pg (27.0-33.0); PLATELET COUNT, AUTOMATED 353 10^3/uL (150-450); RED CELL DISTRIBUTION WIDTH 14.9 % (11.5-14.5); WHITE BLOOD COUNT 29.7 10^3/uL (4.0-10.0)
[2017-10-26] MEDS: oxyCODONE 5MG TAB PO ×3 (07:33→15:42)
[2017-10-26 07:42] LABS: ANION GAP 8 MEQ/L (8-16); BLOOD UREA NITROGEN 27 MG/DL (7-18); CALCIUM LEVEL 8.1 MG/DL (8.5-10.1); CARBON DIOXIDE LEVEL 29 MEQ/L (21-32); CHLORIDE LEVEL 100 MEQ/L (98-107); CREATININE FOR GFR 1.12 MG/DL (0.70-1.30); GLOMERULAR FILTRATION RATE > 60.0 (>56); GLUCOSE, FASTING 115 MG/DL (70-100); POTASSIUM SERUM 3.8 MEQ/L (3.5-5.1); SODIUM LEVEL 137 MEQ/L (136-145)
[2017-10-26] MEDS: DULoxetine 30 MG CAP (CYMBALTA) PO (08:25)
[2017-10-26] MEDS: PANTOPRAZOLE 40MG TAB (PROTONIX) PO (08:25)
[2017-10-26] MEDS: PREGABALIN 100 MG CAP (LYRICA) PO ×3 (08:25→21:01)
[2017-10-26] MEDS: FERROUS SULFATE 325MG TAB PO ×3 (08:26→21:01)
[2017-10-26] MEDS: ASPIRIN 81 MG ENTERIC TAB PO (08:26)
[2017-10-26] MEDS: amLODIPine 5 MG TAB PO (08:26)
[2017-10-26] MEDS: HumaLOG INSULIN (NovoLOG) PER UNIT SC ×4 (08:27→23:53)
[2017-10-26] MEDS: LEVEMIR (INSULIN DETEMIR) 1 UNITS/0.01ML SC ×2 (08:27→21:00)
[2017-10-26] MEDS ORDERED: LISINOPRIL 40 MG TAB PO (09:00)
[2017-10-26] MEDS ORDERED: ENOXAPARIN 40 MG/0.4 ML SYRINGE (J1650) SC (09:00)
[2017-10-26] MEDS: MORPHINE 4 MG/ML 1ML VIAL (J2270) IV ×2 (09:45→20:18)
[2017-10-26] MEDS: SANTYL OINT 30GM TOP (11:38)
[2017-10-26 12:21] LABS: BEDSIDE GLUCOSE 77 MG/DL (70-105)
[2017-10-26] MEDS: DEXTROSE 50% 50 ML SYRINGE IV (13:21)
[2017-10-26 14:36] LABS: BEDSIDE GLUCOSE 83 MG/DL (70-105)
[2017-10-26 15:27] LABS: VANCOMYCIN LEVEL TROUGH 23.3 UG/ML (10.0-20.0)
[2017-10-26] MEDS: D5W/0.45% SODIUM CHLORIDE 1,000 ML IV (16:52)
[2017-10-26] MEDS: ACETAMINOPHEN TAB 650MG DOSE (2X325MG) PO (16:58)
[2017-10-26] MEDS: BUPIVACAINE HCL 0.5% 30 ML VIAL As Ordered (18:29)
[2017-10-26] MEDS: LIDOCAINE 1% MDV 20ML VIAL As Ordered (18:29)
[2017-10-26] MEDS ORDERED: MIDAZOLAM INJ 2 MG/2 ML VIAL (J2250) As Ordered (19:11)
[2017-10-26] MEDS ORDERED: LIDOCAINE 2% INJ 100 MG/5 ML SDV (FOR ANES.) As Ordered (19:11)
[2017-10-26] MEDS ORDERED: fentaNYL 100 MCG/2 ML INJECTION (J3010) As Ordered (19:11)
[2017-10-26] MEDS ORDERED: PROPOFOL 200 MG/20 ML VIAL As Ordered ×2 (19:11)
[2017-10-26] MEDS ORDERED: ONDANSETRON 4MG/2ML VIAL (J2405) IV (19:45)
[2017-10-26] MEDS: LR 1,000 ML IV (19:45)
[2017-10-26] MEDS ORDERED: fentaNYL 100 MCG/2 ML INJECTION (J3010) IV (19:45)
[2017-10-26] MEDS ORDERED: PERCOCET 5MG/325MG TAB PO (19:45)
[2017-10-26 19:50] LABS: BEDSIDE GLUCOSE 117 MG/DL (70-105)
[2017-10-26 21:54] LABS: BEDSIDE GLUCOSE 92 MG/DL (70-105)
[2017-10-26 23:18] LABS: BEDSIDE GLUCOSE 168 MG/DL (70-105)
[2017-10-27] MEDS: MORPHINE 4 MG/ML 1ML VIAL (J2270) IV ×2 (02:58→20:43)
[2017-10-27] MEDS: PIPERACILLIN/TAZOBACTAM SOD 3.375 GM in APPROPRIATE DILUENT 1 EA IV ×4 (04:52→22:21)
[2017-10-27] MEDS: ONDANSETRON 4 MG TAB (S0181) PO (04:57)
[2017-10-27] MEDS: HEPARIN SOD (PORCINE) 5000 UNITS/ML VIAL SQ ×3 (06:00→22:21)
[2017-10-27] MEDS: VANCOMYCIN HCL 1,000 MG, VIAL MATE ADAPTER 1 EACH in D5W 250 ML IV ×2 (06:07→17:34)
[2017-10-27 06:49] LABS: HEMATOCRIT 23.1 % (42.0-52.0); HEMOGLOBIN 7.6 g/dl (14.0-18.0); MEAN CORPUSCULAR HEMOGLOBIN 26.2 pg (27.0-33.0); MEAN CORPUSCULAR HGB CONC 32.9 g/dl (32.0-36.5); MEAN CORPUSCULAR VOLUME 79.7 fl (80.0-96.0); PLATELET COUNT, AUTOMATED 347 10^3/uL (150-450); WHITE BLOOD COUNT 23.5 10^3/uL (4.0-10.0)
[2017-10-27 07:11] LABS: ANION GAP 7 MEQ/L (8-16); BLOOD UREA NITROGEN 18 MG/DL (7-18); CALCIUM LEVEL 7.5 MG/DL (8.5-10.1); CARBON DIOXIDE LEVEL 25 MEQ/L (21-32); CHLORIDE LEVEL 103 MEQ/L (98-107); CREATININE FOR GFR 0.97 MG/DL (0.70-1.30); GLOMERULAR FILTRATION RATE > 60.0 (>56); GLUCOSE, FASTING 111 MG/DL (70-100); POTASSIUM SERUM 3.5 MEQ/L (3.5-5.1); SODIUM LEVEL 135 MEQ/L (136-145)
[2017-10-27] MEDS: HumaLOG INSULIN (NovoLOG) PER UNIT SC ×4 (07:41→20:27)
[2017-10-27] MEDS: ASPIRIN 81 MG ENTERIC TAB PO (08:35)
[2017-10-27] MEDS: PANTOPRAZOLE 40MG TAB (PROTONIX) PO (08:35)
[2017-10-27] MEDS: FERROUS SULFATE 325MG TAB PO ×3 (08:35→20:31)
[2017-10-27] MEDS: PREGABALIN 100 MG CAP (LYRICA) PO ×3 (08:36→20:31)
[2017-10-27] MEDS: LEVEMIR (INSULIN DETEMIR) 1 UNITS/0.01ML SC ×2 (08:36→20:31)
[2017-10-27] MEDS: amLODIPine 5 MG TAB PO (08:36)
[2017-10-27] MEDS: DULoxetine 30 MG CAP (CYMBALTA) PO (08:36)
[2017-10-27] MEDS: oxyCODONE 5MG TAB PO ×2 (09:59→18:26)
[2017-10-27 12:05] LABS: BEDSIDE GLUCOSE 55 MG/DL (70-105)
[2017-10-27 12:05] LABS: BEDSIDE GLUCOSE 61 MG/DL (70-105)
[2017-10-27] MEDS: DEXTROSE 50% 50 ML SYRINGE IV (12:14)
[2017-10-27 13:19] LABS: BEDSIDE GLUCOSE 202 MG/DL (70-105)
[2017-10-27 17:14] LABS: BEDSIDE GLUCOSE 181 MG/DL (70-105)
[2017-10-27] MEDS: D5W/0.45% SODIUM CHLORIDE 1,000 ML IV (18:24)
[2017-10-27 20:16] LABS: BEDSIDE GLUCOSE 128 MG/DL (70-105)
[2017-10-28] MEDS: PIPERACILLIN/TAZOBACTAM SOD 3.375 GM in APPROPRIATE DILUENT 1 EA IV ×4 (04:32→22:29)
[2017-10-28] MEDS: oxyCODONE 5MG TAB PO ×3 (04:33→17:01)
[2017-10-28 04:49] LABS: HEMATOCRIT 23.6 % (42.0-52.0); HEMOGLOBIN 7.6 g/dl (14.0-18.0); MEAN CORPUSCULAR HEMOGLOBIN 25.9 pg (27.0-33.0); MEAN CORPUSCULAR HGB CONC 32.2 g/dl (32.0-36.5); MEAN CORPUSCULAR VOLUME 80.3 fl (80.0-96.0); PLATELET COUNT, AUTOMATED 390 10^3/uL (150-450); RED BLOOD COUNT 2.94 10^6/uL (4.30-6.10); RED CELL DISTRIBUTION WIDTH 15.4 % (11.5-14.5); WHITE BLOOD COUNT 18.9 10^3/uL (4.0-10.0)
[2017-10-28 05:03] LABS: ANION GAP 8 MEQ/L (8-16); BLOOD UREA NITROGEN 15 MG/DL (7-18); CARBON DIOXIDE LEVEL 24 MEQ/L (21-32); CHLORIDE LEVEL 104 MEQ/L (98-107); CREATININE FOR GFR 0.98 MG/DL (0.70-1.30); GLOMERULAR FILTRATION RATE > 60.0 (>56); GLUCOSE, FASTING 173 MG/DL (70-100); POTASSIUM SERUM 3.7 MEQ/L (3.5-5.1); SODIUM LEVEL 136 MEQ/L (136-145); VANCOMYCIN LEVEL TROUGH 15.5 UG/ML (10.0-20.0)
[2017-10-28] MEDS: VANCOMYCIN HCL 1,000 MG, VIAL MATE ADAPTER 1 EACH in D5W 250 ML IV ×2 (05:43→19:15)
[2017-10-28] MEDS: HEPARIN SOD (PORCINE) 5000 UNITS/ML VIAL SQ ×2 (05:43→15:12)
[2017-10-28] MEDS: D5W/0.45% SODIUM CHLORIDE 1,000 ML IV (05:43)
[2017-10-28 06:24] LABS: BEDSIDE GLUCOSE 192 MG/DL (70-105)
[2017-10-28] MEDS: DULoxetine 30 MG CAP (CYMBALTA) PO (08:38)
[2017-10-28] MEDS: PANTOPRAZOLE 40MG TAB (PROTONIX) PO (08:39)
[2017-10-28] MEDS: PREGABALIN 100 MG CAP (LYRICA) PO ×3 (08:39→20:24)
[2017-10-28] MEDS: HumaLOG INSULIN (NovoLOG) PER UNIT SC ×4 (08:39→20:24)
[2017-10-28] MEDS: ASPIRIN 81 MG ENTERIC TAB PO (08:39)
[2017-10-28] MEDS: amLODIPine 5 MG TAB PO (08:40)
[2017-10-28] MEDS: FERROUS SULFATE 325MG TAB PO ×3 (08:40→20:24)
[2017-10-28 11:52] LABS: BEDSIDE GLUCOSE 218 MG/DL (70-105)
[2017-10-28] MEDS: TAMSULOSIN 0.4 MG CAP PO (15:12)
[2017-10-28 16:59] LABS: BEDSIDE GLUCOSE 200 MG/DL (70-105)
[2017-10-28 20:10] LABS: BEDSIDE GLUCOSE 279 MG/DL (70-105)
[2017-10-28] MEDS: LEVEMIR (INSULIN DETEMIR) 1 UNITS/0.01ML SC (20:24)
[2017-10-28] MEDS: MORPHINE 4 MG/ML 1ML VIAL (J2270) IV (21:41)
[2017-10-29] MEDS: oxyCODONE 5MG TAB PO ×3 (03:50→20:50)
[2017-10-29] MEDS: PIPERACILLIN/TAZOBACTAM SOD 3.375 GM in APPROPRIATE DILUENT 1 EA IV ×4 (04:35→22:09)
[2017-10-29] MEDS: VANCOMYCIN HCL 1,000 MG, VIAL MATE ADAPTER 1 EACH in D5W 250 ML IV ×2 (05:47→18:25)
[2017-10-29 06:53] LABS: HEMATOCRIT 25.2 % (42.0-52.0); MEAN CORPUSCULAR HEMOGLOBIN 25.6 pg (27.0-33.0); MEAN CORPUSCULAR HGB CONC 31.7 g/dl (32.0-36.5); MEAN CORPUSCULAR VOLUME 80.8 fl (80.0-96.0); PLATELET COUNT, AUTOMATED 498 10^3/uL (150-450); RED BLOOD COUNT 3.12 10^6/uL (4.30-6.10); RED CELL DISTRIBUTION WIDTH 15.4 % (11.5-14.5); WHITE BLOOD COUNT 14.9 10^3/uL (4.0-10.0)
[2017-10-29 07:13] LABS: ANION GAP 7 MEQ/L (8-16); BLOOD UREA NITROGEN 10 MG/DL (7-18); C REACTIVE PROTEIN QUANTITATIV 8.02 MG/DL (0.00-0.30); CALCIUM LEVEL 7.9 MG/DL (8.5-10.1); CARBON DIOXIDE LEVEL 27 MEQ/L (21-32); CHLORIDE LEVEL 106 MEQ/L (98-107); CREATININE FOR GFR 0.92 MG/DL (0.70-1.30); GLOMERULAR FILTRATION RATE > 60.0 (>56); GLUCOSE, FASTING 187 MG/DL (70-100); POTASSIUM SERUM 4.1 MEQ/L (3.5-5.1); SODIUM LEVEL 140 MEQ/L (136-145)
[2017-10-29] MEDS: DULoxetine 30 MG CAP (CYMBALTA) PO (08:23)
[2017-10-29] MEDS: ASPIRIN 81 MG ENTERIC TAB PO (08:23)
[2017-10-29] MEDS: PANTOPRAZOLE 40MG TAB (PROTONIX) PO (08:24)
[2017-10-29] MEDS: FERROUS SULFATE 325MG TAB PO ×3 (08:24→21:02)
[2017-10-29] MEDS: PREGABALIN 100 MG CAP (LYRICA) PO ×3 (08:24→21:02)
[2017-10-29] MEDS: TAMSULOSIN 0.4 MG CAP PO (08:24)
[2017-10-29] MEDS: HumaLOG INSULIN (NovoLOG) PER UNIT SC ×4 (08:24→20:57)
[2017-10-29] MEDS: amLODIPine 5 MG TAB PO (08:25)
[2017-10-29 11:58] LABS: BEDSIDE GLUCOSE 187 MG/DL (70-105)
[2017-10-29] MEDS ORDERED: LIDOCAINE 2% INJ 100 MG/5 ML SDV (FOR ANES.) As Ordered (16:53)
[2017-10-29] MEDS ORDERED: HYDROmorphone HCL 2 MG/ML 1ML VIAL (J1170) As Ordered (16:53)
[2017-10-29] MEDS ORDERED: MIDAZOLAM INJ 2 MG/2 ML VIAL (J2250) As Ordered ×2 (16:54→17:28)
[2017-10-29] MEDS ORDERED: fentaNYL 100 MCG/2 ML INJECTION (J3010) As Ordered ×2 (16:54→18:53)
[2017-10-29] MEDS: ZOSYN 3.375 GM VIAL (J2543) As Ordered (17:21)
[2017-10-29] MEDS: VANCOMYCIN 1000 MG/20 ML VIAL (J3370) As Ordered (18:15)
[2017-10-29] MEDS: fentaNYL 100 MCG/2 ML INJECTION (J3010) IV ×4 (18:59→19:16)
[2017-10-29] MEDS ORDERED: NORCO, ANEXSIA 5/325MG TABLET (HYDROcodone/ACETAMINOPHEN) As Ordered (19:10)
[2017-10-29] MEDS: NORCO, ANEXSIA 5/325MG TABLET (HYDROcodone/ACETAMINOPHEN) PO (19:15)
[2017-10-29 19:16] LABS: BEDSIDE GLUCOSE 165 MG/DL (70-105)
[2017-10-29] MEDS: LR 1,000 ML IV (19:45)
[2017-10-29] MEDS: LEVEMIR (INSULIN DETEMIR) 1 UNITS/0.01ML SC (21:02)
[2017-10-29] MEDS: MORPHINE 4 MG/ML 1ML VIAL (J2270) IV (21:27)
[2017-10-29] MEDS: HEPARIN SOD (PORCINE) 5000 UNITS/ML VIAL SQ (22:09)
[2017-10-30] MEDS: MORPHINE 4 MG/ML 1ML VIAL (J2270) IV ×6 (01:45→22:53)
[2017-10-30] MEDS: oxyCODONE 5MG TAB PO ×3 (04:34→16:39)
[2017-10-30] MEDS: PIPERACILLIN/TAZOBACTAM SOD 3.375 GM in APPROPRIATE DILUENT 1 EA IV ×2 (04:34→10:14)
[2017-10-30] MEDS: VANCOMYCIN HCL 1,000 MG, VIAL MATE ADAPTER 1 EACH in D5W 250 ML IV (05:55)
[2017-10-30] MEDS: HEPARIN SOD (PORCINE) 5000 UNITS/ML VIAL SQ ×3 (05:55→21:29)
[2017-10-30 06:02] LABS: HEMATOCRIT 23.5 % (42.0-52.0); HEMOGLOBIN 7.3 g/dl (14.0-18.0); MEAN CORPUSCULAR HEMOGLOBIN 25.5 pg (27.0-33.0); MEAN CORPUSCULAR HGB CONC 31.1 g/dl (32.0-36.5); MEAN CORPUSCULAR VOLUME 82.2 fl (80.0-96.0); PLATELET COUNT, AUTOMATED 519 10^3/uL (150-450); RED BLOOD COUNT 2.86 10^6/uL (4.30-6.10); RED CELL DISTRIBUTION WIDTH 15.6 % (11.5-14.5); WHITE BLOOD COUNT 13.6 10^3/uL (4.0-10.0)
[2017-10-30 06:26] LABS: ANION GAP 5 MEQ/L (8-16); BLOOD UREA NITROGEN 11 MG/DL (7-18); CARBON DIOXIDE LEVEL 30 MEQ/L (21-32); CHLORIDE LEVEL 107 MEQ/L (98-107); CREATININE FOR GFR 1.01 MG/DL (0.70-1.30); GLOMERULAR FILTRATION RATE > 60.0 (>56); GLUCOSE, FASTING 199 MG/DL (70-100); POTASSIUM SERUM 4.5 MEQ/L (3.5-5.1); SODIUM LEVEL 142 MEQ/L (136-145)
[2017-10-30] MEDS: TAMSULOSIN 0.4 MG CAP PO (08:46)
[2017-10-30] MEDS: PANTOPRAZOLE 40MG TAB (PROTONIX) PO (08:46)
[2017-10-30] MEDS: DULoxetine 30 MG CAP (CYMBALTA) PO (08:46)
[2017-10-30] MEDS: HumaLOG INSULIN (NovoLOG) PER UNIT SC ×4 (08:46→21:00)
[2017-10-30] MEDS: ASPIRIN 81 MG ENTERIC TAB PO (08:47)
[2017-10-30] MEDS: amLODIPine 5 MG TAB PO (08:47)
[2017-10-30] MEDS: FERROUS SULFATE 325MG TAB PO ×3 (08:47→21:28)
[2017-10-30] MEDS: PREGABALIN 100 MG CAP (LYRICA) PO ×3 (08:47→21:28)
[2017-10-30] MEDS: LR 1,000 ML IV ×2 (08:48→21:32)
[2017-10-30 11:23] LABS: IMMEDIATE SPIN CROSSMATCH 1 1
[2017-10-30 12:32] LABS: BEDSIDE GLUCOSE 198 MG/DL (70-105)
[2017-10-30] MEDS: ACETAMINOPHEN TAB 650MG DOSE (2X325MG) PO (15:08)
[2017-10-30 19:59] LABS: BEDSIDE GLUCOSE 279 MG/DL (70-105)
[2017-10-30 19:59] LABS: BEDSIDE GLUCOSE 213 MG/DL (70-105)
[2017-10-30 20:24] LABS: BEDSIDE GLUCOSE 142 MG/DL (70-105)
[2017-10-30] MEDS: LEVEMIR (INSULIN DETEMIR) 1 UNITS/0.01ML SC (21:29)
[2017-10-31] MEDS: MORPHINE 4 MG/ML 1ML VIAL (J2270) IV ×3 (04:29→17:27)
[2017-10-31 06:31] LABS: HEMATOCRIT 24.8 % (42.0-52.0); HEMOGLOBIN 7.9 g/dl (14.0-18.0); MEAN CORPUSCULAR HEMOGLOBIN 26.1 pg (27.0-33.0); MEAN CORPUSCULAR HGB CONC 31.9 g/dl (32.0-36.5); MEAN CORPUSCULAR VOLUME 81.8 fl (80.0-96.0); PLATELET COUNT, AUTOMATED 513 10^3/uL (150-450); RED BLOOD COUNT 3.03 10^6/uL (4.30-6.10); RED CELL DISTRIBUTION WIDTH 15.4 % (11.5-14.5); WHITE BLOOD COUNT 15.1 10^3/uL (4.0-10.0)
[2017-10-31 06:46] LABS: ANION GAP 6 MEQ/L (8-16); BLOOD UREA NITROGEN 9 MG/DL (7-18); CALCIUM LEVEL 8.2 MG/DL (8.5-10.1); CARBON DIOXIDE LEVEL 28 MEQ/L (21-32); CHLORIDE LEVEL 105 MEQ/L (98-107); CREATININE FOR GFR 0.88 MG/DL (0.70-1.30); GLOMERULAR FILTRATION RATE > 60.0 (>56); GLUCOSE, FASTING 170 MG/DL (70-100); POTASSIUM SERUM 4.3 MEQ/L (3.5-5.1); SODIUM LEVEL 139 MEQ/L (136-145)
[2017-10-31] MEDS: HEPARIN SOD (PORCINE) 5000 UNITS/ML VIAL SQ ×3 (06:52→21:27)
[2017-10-31] MEDS: oxyCODONE 5MG TAB PO ×3 (06:52→21:30)
[2017-10-31] MEDS: FERROUS SULFATE 325MG TAB PO ×3 (08:09→21:27)
[2017-10-31] MEDS: PREGABALIN 100 MG CAP (LYRICA) PO ×3 (08:09→21:27)
[2017-10-31] MEDS: ASPIRIN 81 MG ENTERIC TAB PO (08:09)
[2017-10-31] MEDS: amLODIPine 5 MG TAB PO (08:09)
[2017-10-31] MEDS: DULoxetine 30 MG CAP (CYMBALTA) PO (08:09)
[2017-10-31] MEDS: PANTOPRAZOLE 40MG TAB (PROTONIX) PO (08:09)
[2017-10-31] MEDS: TAMSULOSIN 0.4 MG CAP PO (08:09)
[2017-10-31] MEDS: HumaLOG INSULIN (NovoLOG) PER UNIT SC ×4 (08:10→21:00)
[2017-10-31 12:04] LABS: BEDSIDE GLUCOSE 142 MG/DL (70-105)
[2017-10-31 14:25] LABS: HEMATOCRIT 25.5 % (42.0-52.0); HEMOGLOBIN 8.1 g/dl (14.0-18.0)
[2017-10-31 17:08] LABS: BEDSIDE GLUCOSE 197 MG/DL (70-105)
[2017-10-31 20:18] LABS: BEDSIDE GLUCOSE 200 MG/DL (70-105)
[2017-10-31] MEDS: LEVEMIR (INSULIN DETEMIR) 1 UNITS/0.01ML SC (21:28)
[2017-11-01] MEDS: MORPHINE 4 MG/ML 1ML VIAL (J2270) IV ×4 (04:02→22:28)
[2017-11-01] MEDS: HEPARIN SOD (PORCINE) 5000 UNITS/ML VIAL SQ ×3 (05:27→21:16)
[2017-11-01 06:25] LABS: HEMATOCRIT 24.2 % (42.0-52.0); HEMOGLOBIN 7.6 g/dl (14.0-18.0); MEAN CORPUSCULAR HGB CONC 31.4 g/dl (32.0-36.5); MEAN CORPUSCULAR VOLUME 82.9 fl (80.0-96.0); PLATELET COUNT, AUTOMATED 525 10^3/uL (150-450); RED BLOOD COUNT 2.92 10^6/uL (4.30-6.10); RED CELL DISTRIBUTION WIDTH 15.6 % (11.5-14.5); WHITE BLOOD COUNT 14.9 10^3/uL (4.0-10.0)
[2017-11-01 06:51] LABS: ANION GAP 6 MEQ/L (8-16); BLOOD UREA NITROGEN 10 MG/DL (7-18); CALCIUM LEVEL 8.1 MG/DL (8.5-10.1); CARBON DIOXIDE LEVEL 29 MEQ/L (21-32); CHLORIDE LEVEL 104 MEQ/L (98-107); CREATININE FOR GFR 0.94 MG/DL (0.70-1.30); GLOMERULAR FILTRATION RATE > 60.0 (>56); GLUCOSE, FASTING 165 MG/DL (70-100); POTASSIUM SERUM 4.2 MEQ/L (3.5-5.1); SODIUM LEVEL 139 MEQ/L (136-145)
[2017-11-01] MEDS: PREGABALIN 100 MG CAP (LYRICA) PO ×3 (07:46→21:16)
[2017-11-01] MEDS: HumaLOG INSULIN (NovoLOG) PER UNIT SC ×4 (07:46→21:09)
[2017-11-01] MEDS: TAMSULOSIN 0.4 MG CAP PO (07:46)
[2017-11-01] MEDS: PANTOPRAZOLE 40MG TAB (PROTONIX) PO (07:47)
[2017-11-01] MEDS: oxyCODONE 5MG TAB PO ×2 (07:47→17:50)
[2017-11-01] MEDS: FERROUS SULFATE 325MG TAB PO ×3 (07:47→21:16)
[2017-11-01] MEDS: ASPIRIN 81 MG ENTERIC TAB PO (07:47)
[2017-11-01] MEDS: amLODIPine 5 MG TAB PO (07:48)
[2017-11-01] MEDS: DULoxetine 30 MG CAP (CYMBALTA) PO (07:48)
[2017-11-01 09:47] LABS: IMMEDIATE SPIN CROSSMATCH 1 1
[2017-11-01 11:38] LABS: BEDSIDE GLUCOSE 129 MG/DL (70-105)
[2017-11-01 17:00] LABS: BEDSIDE GLUCOSE 242 MG/DL (70-105)
[2017-11-01 21:01] LABS: BEDSIDE GLUCOSE 178 MG/DL (70-105)
[2017-11-01] MEDS: LEVEMIR (INSULIN DETEMIR) 1 UNITS/0.01ML SC (21:16)
[2017-11-02] MEDS: oxyCODONE 5MG TAB PO ×3 (02:48→19:37)
[2017-11-02] MEDS: HEPARIN SOD (PORCINE) 5000 UNITS/ML VIAL SQ ×3 (05:13→21:36)
[2017-11-02] MEDS: MORPHINE 4 MG/ML 1ML VIAL (J2270) IV ×3 (05:14→15:49)
[2017-11-02 06:06] LABS: C REACTIVE PROTEIN QUANTITATIV 9.76 MG/DL (0.00-0.30)
[2017-11-02 06:16] LABS: BEDSIDE GLUCOSE 194 MG/DL (70-105)
[2017-11-02] MEDS ORDERED: MORPHINE 4 MG/ML 1ML VIAL (J2270) IV (07:30)
[2017-11-02 07:51] LABS: ANION GAP 8 MEQ/L (8-16); BLOOD UREA NITROGEN 13 MG/DL (7-18); CALCIUM LEVEL 8.1 MG/DL (8.5-10.1); CARBON DIOXIDE LEVEL 27 MEQ/L (21-32); CHLORIDE LEVEL 106 MEQ/L (98-107); GLOMERULAR FILTRATION RATE > 60.0 (>56); GLUCOSE, FASTING 192 MG/DL (70-100); POTASSIUM SERUM 4.5 MEQ/L (3.5-5.1); SODIUM LEVEL 141 MEQ/L (136-145)
[2017-11-02] MEDS: DULoxetine 30 MG CAP (CYMBALTA) PO (07:53)
[2017-11-02] MEDS: TAMSULOSIN 0.4 MG CAP PO (07:53)
[2017-11-02] MEDS: FERROUS SULFATE 325MG TAB PO ×3 (07:53→21:36)
[2017-11-02] MEDS: amLODIPine 5 MG TAB PO (07:54)
[2017-11-02] MEDS: PANTOPRAZOLE 40MG TAB (PROTONIX) PO (07:54)
[2017-11-02] MEDS: ASPIRIN 81 MG ENTERIC TAB PO (07:54)
[2017-11-02] MEDS: HumaLOG INSULIN (NovoLOG) PER UNIT SC ×4 (07:55→21:00)
[2017-11-02 08:29] LABS: HEMATOCRIT 27.7 % (42.0-52.0); HEMOGLOBIN 8.6 g/dl (14.0-18.0); MEAN CORPUSCULAR HEMOGLOBIN 25.9 pg (27.0-33.0); MEAN CORPUSCULAR VOLUME 83.4 fl (80.0-96.0); PLATELET COUNT, AUTOMATED 563 10^3/uL (150-450); RED BLOOD COUNT 3.32 10^6/uL (4.30-6.10); WHITE BLOOD COUNT 15.5 10^3/uL (4.0-10.0)
[2017-11-02] MEDS: PREGABALIN 100 MG CAP (LYRICA) PO ×3 (09:53→21:36)
[2017-11-02 15:12] LABS: BEDSIDE GLUCOSE 296 MG/DL (70-105)
[2017-11-02 17:27] LABS: BEDSIDE GLUCOSE 135 MG/DL (70-105)
[2017-11-02 21:13] LABS: BEDSIDE GLUCOSE 246 MG/DL (70-105)
[2017-11-02] MEDS: LEVEMIR (INSULIN DETEMIR) 1 UNITS/0.01ML SC (21:35)
[2017-11-03] MEDS: oxyCODONE 5MG TAB PO ×2 (04:43→13:49)
[2017-11-03] MEDS: HEPARIN SOD (PORCINE) 5000 UNITS/ML VIAL SQ ×3 (05:21→21:55)
[2017-11-03] MEDS: MORPHINE 4 MG/ML 1ML VIAL (J2270) IV ×3 (05:58→20:08)
[2017-11-03 06:08] LABS: HEMATOCRIT 25.8 % (42.0-52.0); HEMOGLOBIN 8.1 g/dl (14.0-18.0); MEAN CORPUSCULAR HGB CONC 31.4 g/dl (32.0-36.5); MEAN CORPUSCULAR VOLUME 82.7 fl (80.0-96.0); PLATELET COUNT, AUTOMATED 517 10^3/uL (150-450); RED BLOOD COUNT 3.12 10^6/uL (4.30-6.10); RED CELL DISTRIBUTION WIDTH 16.1 % (11.5-14.5); WHITE BLOOD COUNT 11.9 10^3/uL (4.0-10.0)
[2017-11-03 06:29] LABS: ANION GAP 7 MEQ/L (8-16); BLOOD UREA NITROGEN 12 MG/DL (7-18); C REACTIVE PROTEIN QUANTITATIV 7.94 MG/DL (0.00-0.30); CALCIUM LEVEL 8.2 MG/DL (8.5-10.1); CARBON DIOXIDE LEVEL 28 MEQ/L (21-32); CHLORIDE LEVEL 106 MEQ/L (98-107); CREATININE FOR GFR 0.93 MG/DL (0.70-1.30); GLOMERULAR FILTRATION RATE > 60.0 (>56); GLUCOSE, FASTING 234 MG/DL (70-100); MAGNESIUM LEVEL 1.9 MG/DL (1.8-2.4); SODIUM LEVEL 141 MEQ/L (136-145)
[2017-11-03] MEDS: HumaLOG INSULIN (NovoLOG) PER UNIT SC ×4 (07:32→20:08)
[2017-11-03] MEDS: PANTOPRAZOLE 40MG TAB (PROTONIX) PO (07:32)
[2017-11-03] MEDS: FERROUS SULFATE 325MG TAB PO ×3 (07:33→20:07)
[2017-11-03] MEDS: ASPIRIN 81 MG ENTERIC TAB PO (07:33)
[2017-11-03] MEDS: DULoxetine 30 MG CAP (CYMBALTA) PO (07:33)
[2017-11-03] MEDS: TAMSULOSIN 0.4 MG CAP PO (07:33)
[2017-11-03] MEDS: PREGABALIN 100 MG CAP (LYRICA) PO ×3 (07:34→20:08)
[2017-11-03] MEDS: amLODIPine 5 MG TAB PO (07:34)
[2017-11-03 11:52] LABS: BEDSIDE GLUCOSE 143 MG/DL (70-105)
[2017-11-03 19:52] LABS: BEDSIDE GLUCOSE 258 MG/DL (70-105)
[2017-11-03] MEDS: LEVEMIR (INSULIN DETEMIR) 1 UNITS/0.01ML SC (20:08)
[2017-11-03 20:42] LABS: BEDSIDE GLUCOSE 269 MG/DL (70-105)
[2017-11-04] MEDS: oxyCODONE 5MG TAB PO ×2 (03:20→14:13)
[2017-11-04] MEDS: HEPARIN SOD (PORCINE) 5000 UNITS/ML VIAL SQ ×2 (05:10→13:03)
[2017-11-04] MEDS: MORPHINE 4 MG/ML 1ML VIAL (J2270) IV ×2 (05:10→11:16)
[2017-11-04 06:38] LABS: HEMATOCRIT 28.5 % (42.0-52.0); HEMOGLOBIN 8.9 g/dl (14.0-18.0); MEAN CORPUSCULAR HEMOGLOBIN 26.2 pg (27.0-33.0); MEAN CORPUSCULAR HGB CONC 31.2 g/dl (32.0-36.5); MEAN CORPUSCULAR VOLUME 83.8 fl (80.0-96.0); PLATELET COUNT, AUTOMATED 553 10^3/uL (150-450); RED CELL DISTRIBUTION WIDTH 15.9 % (11.5-14.5); WHITE BLOOD COUNT 12.4 10^3/uL (4.0-10.0)
[2017-11-04 06:48] LABS: ANION GAP 6 MEQ/L (8-16); BLOOD UREA NITROGEN 12 MG/DL (7-18); CALCIUM LEVEL 8.5 MG/DL (8.5-10.1); CARBON DIOXIDE LEVEL 27 MEQ/L (21-32); CHLORIDE LEVEL 106 MEQ/L (98-107); CREATININE FOR GFR 0.93 MG/DL (0.70-1.30); GLOMERULAR FILTRATION RATE > 60.0 (>56); GLUCOSE, FASTING 177 MG/DL (70-100); MAGNESIUM LEVEL 2.1 MG/DL (1.8-2.4); POTASSIUM SERUM 4.5 MEQ/L (3.5-5.1); SODIUM LEVEL 139 MEQ/L (136-145)
[2017-11-04] MEDS: ASPIRIN 81 MG ENTERIC TAB PO (08:33)
[2017-11-04] MEDS: PREGABALIN 100 MG CAP (LYRICA) PO (08:33)
[2017-11-04] MEDS: FERROUS SULFATE 325MG TAB PO (08:33)
[2017-11-04] MEDS: DULoxetine 30 MG CAP (CYMBALTA) PO (08:34)
[2017-11-04] MEDS: TAMSULOSIN 0.4 MG CAP PO (08:34)
[2017-11-04] MEDS: PANTOPRAZOLE 40MG TAB (PROTONIX) PO (08:34)
[2017-11-04] MEDS: amLODIPine 5 MG TAB PO (08:34)
[2017-11-04] MEDS: HumaLOG INSULIN (NovoLOG) PER UNIT SC ×2 (08:34→13:04)
[2017-11-04 12:07] LABS: BEDSIDE GLUCOSE 213 MG/DL (70-105)
== END 2017-11-04 15:30 | disposition home or self-care (01) | DRG 305 ==
LOC: M MSPAV 10-29 19:49 → M ED 16:04 → M ED INP 17:21 → M MS4PR 21:38
PROC: 0JBR0ZZ Excision of Left Foot Subcutaneous Tissue and Fascia, Open Approach (ICD-10-PCS; principal; 2017-10-26 18:00)
PROC: 0Y6J0Z1 Detachment at Left Lower Leg, High, Open Approach (ICD-10-PCS; 2017-10-26 18:20)
PROC: 30233N1 Transfusion of Nonautologous Red Blood Cells into Peripheral Vein, Percutaneous Approach (ICD-10-PCS; 2017-10-26 18:20)
DX: E11.621 Type 2 diabetes mellitus with foot ulcer (principal); E11.43 Type 2 diabetes mellitus with diabetic autonomic (poly)neuropathy; E11.52 Type 2 diabetes mellitus with diabetic peripheral angiopathy with gangrene; M86.9 Osteomyelitis, unspecified; J44.9 Chronic obstructive pulmonary disease, unspecified; I10 Essential (primary) hypertension; K21.9 Gastro-esophageal reflux disease without esophagitis; D64.9 Anemia, unspecified; L03.116 Cellulitis of left lower limb; F10.21 Alcohol dependence, in remission; G47.00 Insomnia, unspecified; F17.210 Nicotine dependence, cigarettes, uncomplicated; L97.529 Non-pressure chronic ulcer of other part of left foot with unspecified severity; E78.00 Pure hypercholesterolemia, unspecified; Z79.4 Long term (current) use of insulin; Z79.82 Long term (current) use of aspirin; Z79.899 Other long term (current) drug therapy; Z88.8 Allergy status to other drugs, medicaments and biological substances; Z89.421 Acquired absence of other right toe(s)

== ENCOUNTER 2018-01-25 14:34 | Emergency (ER) | payer OTHER ==
[2018-01-25 17:39] LABS: BASO # 0.1 10^3/uL (0.0-0.2); BASO % 0.6 % (0.0-1.0); EOS # 0.5 10^3/uL (0.0-0.50); EOS % 2.6 % (0.0-3.0); HEMATOCRIT 35.5 % (42.0-52.0); HEMOGLOBIN 11.3 g/dl (13.5-17.5); LYMPH # 2.7 10^3/uL (1.5-4.5); LYMPH % 14.8 % (24.0-44.0); MEAN CORPUSCULAR HEMOGLOBIN 26.7 pg (27.0-33.0); MEAN CORPUSCULAR HGB CONC 31.8 g/dl (32.0-36.5); MEAN CORPUSCULAR VOLUME 83.9 fl (80.0-96.0); MONO # 1.5 10^3/uL (0.0-0.8); MONO % 8.2 % (0.0-5.0); NEUTROPHILS # 13.1 10^3/uL (1.8-7.7); NEUTROPHILS % 72.8 % (36.0-66.0); PLATELET COUNT, AUTOMATED 398 10^3/uL (150-450); RED BLOOD COUNT 4.23 10^6/uL (4.30-6.10); RED CELL DISTRIBUTION WIDTH 15.4 % (11.5-14.5); WHITE BLOOD COUNT 17.9 10^3/uL (4.0-10.0)
[2018-01-25] MEDS: NS 1,000 ML IV (17:40)
[2018-01-25] MEDS: MORPHINE 4 MG/ML 1ML VIAL/SYRINGE (J2270) IV (17:40)
[2018-01-25] MEDS: oxyCODONE 5MG TAB PO (17:41)
[2018-01-25 18:02] LABS: ANION GAP 7 MEQ/L (8-16); BLOOD UREA NITROGEN 15 MG/DL (7-18); C REACTIVE PROTEIN QUANTITATIV 4.75 MG/DL (0.00-0.30); CALCIUM LEVEL 8.8 MG/DL (8.5-10.1); CARBON DIOXIDE LEVEL 27 MEQ/L (21-32); CHLORIDE LEVEL 102 MEQ/L (98-107); CREATININE FOR GFR 1.65 MG/DL (0.70-1.30); GLOMERULAR FILTRATION RATE 46.7 (>56); GLUCOSE, FASTING 286 MG/DL (70-100); POTASSIUM SERUM 4.7 MEQ/L (3.5-5.1); SODIUM LEVEL 136 MEQ/L (136-145)
[2018-01-25 18:06] LABS: LACTIC ACID SEPSIS PROTOCOL 1.3 MMOL/L (0.4-2.0)
[2018-01-25] MEDS ORDERED: ISOVUE-370 76% 100ML VIAL (Q9967) As Ordered (18:14)
[2018-01-25 18:15] LABS: ERYTHROCYTE SEDIMENTATION RATE 82 mm/hr (0-20)
[2018-01-25] MEDS: HYDROmorphone HCL 1 MG/ML SYRINGE (J1170) IV (19:13)
[2018-01-25] MEDS: CLINDAMYCIN 900 MG in APPROPRIATE DILUENT 1 EA IV (20:26)
[2018-01-25] MEDS: LevoFLOXacin IV 750 MG in APPROPRIATE DILUENT 1 EA IV (21:42)
[2018-01-25] MEDS: oxyCODONE 15 MG CR TAB PO (22:48)
== END 2018-01-25 23:28 | disposition left against medical advice (07) ==
LOC: M ED 14:34
DX: M86.9 Osteomyelitis, unspecified (principal); T23.062A Burn of unspecified degree of back of left hand, initial encounter; X15.0XXA Contact with hot stove (kitchen), initial encounter; Y92.010 Kitchen of single-family (private) house as the place of occurrence of the external cause; E11.9 Type 2 diabetes mellitus without complications; I10 Essential (primary) hypertension; J44.9 Chronic obstructive pulmonary disease, unspecified; E78.5 Hyperlipidemia, unspecified; G62.9 Polyneuropathy, unspecified; K31.84 Gastroparesis
CPT/HCPCS: J1956

== ENCOUNTER 2018-03-03 17:53 | Inpatient (IN) | payer OTHER ==
[2018-03-03] MEDS ORDERED: LORazepam 2 MG/ML VIAL (J2060) As Ordered (18:06)
[2018-03-03] MEDS: LORazepam 2 MG/ML VIAL (J2060) IV (18:11)
[2018-03-03 18:46] LABS: HEMATOCRIT 32.2 % (42.0-52.0); HEMOGLOBIN 9.5 g/dl (13.5-17.5); MEAN CORPUSCULAR HEMOGLOBIN 26.8 pg (27.0-33.0); MEAN CORPUSCULAR HGB CONC 29.5 g/dl (32.0-36.5); PLATELET COUNT, AUTOMATED 257 10^3/uL (150-450); RED BLOOD COUNT 3.54 10^6/uL (4.30-6.10); RED CELL DISTRIBUTION WIDTH 16.1 % (11.5-14.5); WHITE BLOOD COUNT 20.2 10^3/uL (4.0-10.0)
[2018-03-03 18:54] LABS: AMORPHOUS SEDIMENT RFX SMALL (NEGATIVE); KETONE, URINE AUTO RFX TRACE mg/dL (NEGATIVE); LEUKOCYTE ESTERASE UR AUTO RFX NEGATIVE (NEGATIVE); MUCUS, URINE RFX SMALL (NEGATIVE); NITRITE, URINE AUTO RFX NEGATIVE (NEGATIVE); RBC, URINE AUTO RFX 0 /HPF (0-3); SQUAM EPITHELIAL CELL UR AURFX 0 /HPF (0-6); WBC, URINE AUTO RFX 1 /HPF (0-3)
[2018-03-03 19:07] LABS: AMPHETAMINES LEVEL URINE NEGATIVE (NEGATIVE); BARBITURATES URINE NEGATIVE (NEGATIVE); BENZODIAZEPINES URINE NEGATIVE (NEGATIVE); CANNABINOIDS URINE NEGATIVE (NEGATIVE); COCAINE METABOLITE URINE NEGATIVE (NEGATIVE); METHADONE URINE NEGATIVE (NEGATIVE); OPIATES URINE POSITIVE (NEGATIVE); PHENCYCLIDINE URINE NEGATIVE (NEGATIVE)
[2018-03-03] MEDS: NALOXONE INJ 0.4 MG/1 ML VIAL (J2310) IV (19:16)
[2018-03-03 19:17] LABS: ADD MANUAL DIFFER YES; DIFF SLIDE NUMBER 378; POS COUNT POS FLAG; POSITIVE MORPH POS FLAG
[2018-03-03 19:20] LABS: ATYPICAL LYMPH 1 % (0-5); BANDS 4 % (< 11); LYMPHOCYTES 2 % (16-52); NEUTROPHILS 93 % (35-75)
[2018-03-03 19:21] LABS: PLATELET ESTIMATE NORMAL (NORMAL); TOXIC VACUOLATION 1+
[2018-03-03 19:23] LABS: ANISOCYTOSIS 1+; HYPOCHROMASIA 1+
[2018-03-03 19:40] LABS: ANION GAP 23 MEQ/L (8-16); BLOOD UREA NITROGEN 104 MG/DL (7-18); CALCIUM LEVEL 7.9 MG/DL (8.5-10.1); CARBON DIOXIDE LEVEL 14 MEQ/L (21-32); CHLORIDE LEVEL 94 MEQ/L (98-107); CREATININE FOR GFR 3.85 MG/DL (0.70-1.30); GLOMERULAR FILTRATION RATE 17.6 (>56); SODIUM LEVEL 131 MEQ/L (136-145)
[2018-03-03 19:41] LABS: ALKALINE PHOSPHATASE 185 U/L (45-117); ALT/SGPT 53 U/L (12-78); AST/SGOT 117 U/L (7-37); BILIRUBIN,DIRECT < 0.1 MG/DL (0.0-0.2); BILIRUBIN,TOTAL 0.4 MG/DL (0.2-1.0); CK-MB VALUE MASS 71.4 NG/ML (<3.6); CPK CREATINE PHOSPHOKINASE 3854 U/L (39-308); MB/CK RELATIVE INDEX 1.85 (< OR =4); PHOSPHORUS LEVEL 6.5 MG/DL (2.5-4.9); TOTAL PROTEIN 6.2 GM/DL (6.4-8.2)
[2018-03-03 19:43] LABS: ALBUMIN 2.3 GM/DL (3.2-5.2); ALBUMIN/GLOBULIN RATIO 0.59 (1.00-1.93)
[2018-03-03 19:44] LABS: ACETAMINOPHEN LEVEL < 2.0 UG/ML (10.0-30.0); ETHYL ALCOHOL (ETHANOL) 0.004 % (0.000-0.010); FREE T4 1.49 NG/DL (0.76-1.46); MAGNESIUM LEVEL 2.3 MG/DL (1.8-2.4); SALICYLATE LEVEL 2.6 MG/DL (5.0-30.0); THYROID STIMULATING HORMONE 0.285 uIU/ML (0.358-3.740); TROPONIN I < 0.02 NG/ML (< 0.10)
[2018-03-03 19:46] LABS: GLUCOSE, FASTING 1300 MG/DL (70-100)
[2018-03-03 19:48] LABS: ABG HCO3 18.2 MEQ/L (22.0-26.0); ABG PARTIAL PRESSURE O2 85.9 mmHg (75.0-100.0); ABG STANDARD HCO3 18.7 MEQ/L (22.0-26.0); ABG TOTAL CO2 19.2 MEQ/L (22.0-29.0); ABG pH (ARTERIAL) 7.333 UNITS (7.350-7.450)
[2018-03-03] MEDS: NS 1,000 ML IV ×3 (20:00→23:00)
[2018-03-03] MEDS: HumuLIN R (REGULAR) INSULIN (NovoLIN R) **100U/ML** PER UNIT IV (20:24)
[2018-03-03 20:25] LABS: ACETONE/KETONE > 46.00 MG/DL (<2.81)
[2018-03-03] MEDS: INSULIN HUMAN REGULAR 100 UNITS in NS 99 ML IV ×2 (20:56→23:00)
[2018-03-03 21:06] LABS: LACTIC ACID SEPSIS PROTOCOL 2.8 MMOL/L (0.4-2.0)
[2018-03-03 22:36] LABS: ESTIMATED AVERAGE GLUCOSE 318 MG/DL (60-110); HEMOGLOBIN A1c 12.7 %
[2018-03-03 22:42] LABS: ACETONE/KETONE 10.66 MG/DL (<2.81); ANION GAP 17 MEQ/L (8-16); BLOOD UREA NITROGEN 106 MG/DL (7-18); CALCIUM LEVEL 7.5 MG/DL (8.5-10.1); CARBON DIOXIDE LEVEL 19 MEQ/L (21-32); CHLORIDE LEVEL 105 MEQ/L (98-107); CREATININE FOR GFR 4.15 MG/DL (0.70-1.30); GLOMERULAR FILTRATION RATE 16.1 (>56); POTASSIUM SERUM 3.7 MEQ/L (3.5-5.1); SODIUM LEVEL 141 MEQ/L (136-145)
[2018-03-03 22:44] LABS: GLUCOSE, FASTING 945 MG/DL (70-100)
[2018-03-03] MEDS ORDERED: PHENYLEPHRINE INJ 10MG/ML VIAL (J2370) As Ordered (22:53)
[2018-03-03] MEDS: PHENYLEPHRINE HCL INJ 50 MG in D5W 500 ML IV (23:00)
[2018-03-03] MEDS: NS 500 ML IV (23:15)
[2018-03-04 00:02] LABS: ANION GAP 15 MEQ/L (8-16); BLOOD UREA NITROGEN 102 MG/DL (7-18); CALCIUM LEVEL 7.6 MG/DL (8.5-10.1); CARBON DIOXIDE LEVEL 22 MEQ/L (21-32); CHLORIDE LEVEL 107 MEQ/L (98-107); CREATININE FOR GFR 3.96 MG/DL (0.70-1.30); POTASSIUM SERUM 4.1 MEQ/L (3.5-5.1); SODIUM LEVEL 144 MEQ/L (136-145)
[2018-03-04 00:03] LABS: GLUCOSE, FASTING 770 MG/DL (70-100)
[2018-03-04] MEDS ORDERED: PHENYLEPHRINE INJ 10MG/ML VIAL (J2370) As Ordered (00:20)
[2018-03-04] MEDS: LORazepam 2 MG/ML VIAL (J2060) IV (01:14)
[2018-03-04] MEDS: NS 1,000 ML IV ×4 (01:15→11:05)
[2018-03-04] MEDS: NS 500 ML IV (01:15)
[2018-03-04 01:59] LABS: ANION GAP 12 MEQ/L (8-16); BLOOD UREA NITROGEN 102 MG/DL (7-18); CALCIUM LEVEL 7.3 MG/DL (8.5-10.1); CARBON DIOXIDE LEVEL 23 MEQ/L (21-32); CHLORIDE LEVEL 109 MEQ/L (98-107); CREATININE FOR GFR 4.06 MG/DL (0.70-1.30); GLOMERULAR FILTRATION RATE 16.5 (>56); POTASSIUM SERUM 4.2 MEQ/L (3.5-5.1); SODIUM LEVEL 144 MEQ/L (136-145)
[2018-03-04 02:03] LABS: GLUCOSE, FASTING 627 MG/DL (70-100)
[2018-03-04 02:29] LABS: ABG BASE EXCESS -6.9 (-2.0-2.0); ABG HCO3 20.1 MEQ/L (22.0-26.0); ABG O2 SATURATION 89.1 % (95.0-99.0); ABG PARTIAL PRESSURE O2 63.3 mmHg (75.0-100.0); ABG STANDARD HCO3 18.7 MEQ/L (22.0-26.0); ABG TOTAL CO2 21.5 MEQ/L (22.0-29.0)
[2018-03-04 02:32] LABS: ABG pH (ARTERIAL) 7.249 UNITS (7.350-7.450)
[2018-03-04] MEDS: NALOXONE INJ 0.4 MG/1 ML VIAL (J2310) IV ×2 (02:59→03:29)
[2018-03-04 03:14] LABS: BEDSIDE GLUCOSE 520 MG/DL (70-105)
[2018-03-04 03:57] LABS: BEDSIDE GLUCOSE 492 MG/DL (70-105)
[2018-03-04] MEDS: PHENYLEPHRINE HCL INJ 50 MG in D5W 500 ML IV (03:57)
[2018-03-04] MEDS ORDERED: ALBUTEROL SULFATE 2.5 MG/0.5 ML INH NEB SOLN NEB (04:00)
[2018-03-04] MEDS ORDERED: SUCCINYLCHOLINE INJ 200 MG/10 ML VIAL (J0330) As Ordered (04:03)
[2018-03-04] MEDS ORDERED: ETOMIDATE INJ 20MG/10ML VIAL As Ordered ×2 (04:03→04:07)
[2018-03-04 04:25] LABS: ANION GAP 13 MEQ/L (8-16); BLOOD UREA NITROGEN 100 MG/DL (7-18); CALCIUM LEVEL 7.2 MG/DL (8.5-10.1); CARBON DIOXIDE LEVEL 22 MEQ/L (21-32); CHLORIDE LEVEL 111 MEQ/L (98-107); CREATININE FOR GFR 3.63 MG/DL (0.70-1.30); GLOMERULAR FILTRATION RATE 18.8 (>56); GLUCOSE, FASTING 487 MG/DL (70-100); MAGNESIUM LEVEL 1.8 MG/DL (1.8-2.4); POTASSIUM SERUM 4.3 MEQ/L (3.5-5.1); SODIUM LEVEL 146 MEQ/L (136-145)
[2018-03-04 04:39] LABS: LACTIC ACID SEPSIS PROTOCOL 5.1 MMOL/L (0.4-2.0)
[2018-03-04 04:58] LABS: HEMATOCRIT 28.7 % (42.0-52.0); HEMOGLOBIN 9.3 g/dl (13.5-17.5); MEAN CORPUSCULAR HEMOGLOBIN 26.8 pg (27.0-33.0); MEAN CORPUSCULAR HGB CONC 32.4 g/dl (32.0-36.5); MEAN CORPUSCULAR VOLUME 82.7 fl (80.0-96.0); PLATELET COUNT, AUTOMATED 316 10^3/uL (150-450); RED BLOOD COUNT 3.47 10^6/uL (4.30-6.10); RED CELL DISTRIBUTION WIDTH 14.8 % (11.5-14.5); WHITE BLOOD COUNT 26.6 10^3/uL (4.0-10.0)
[2018-03-04 05:00] LABS: ADD MANUAL DIFFER YES; DIFF SLIDE NUMBER 114; POSITIVE MORPH POS FLAG
[2018-03-04] MEDS: INSULIN IV RATE CHANGE DOCUMENTATION ML/HR XX ×8 (05:00→22:04)
[2018-03-04] MEDS ORDERED: PIPERACILLIN/TAZOBACTAM SOD 3.375 GM in D5W MINI-BAG PLUS 50 ML IV (05:00)
[2018-03-04 05:24] LABS: BANDS 6 % (< 11); LYMPHOCYTES 4 % (16-52); METAMYELOCYTES 3 % (0-0); MYELOCYTES 1 % (0-0); NEUTROPHILS 86 % (35-75)
[2018-03-04 05:25] LABS: PLATELET CLUMPS SMALL AMT; PLATELET ESTIMATE INCREASED (NORMAL)
[2018-03-04 05:26] LABS: ANISOCYTOSIS 1+; HYPOCHROMASIA 1+; TOXIC VACUOLATION 1+
[2018-03-04] MEDS: VANCOMYCIN HCL 1,000 MG, VIAL MATE ADAPTER 1 EACH in D5W 250 ML IV (05:26)
[2018-03-04] MEDS: ETOMIDATE INJ 20MG/10ML VIAL IV (05:27)
[2018-03-04] MEDS: SUCCINYLCHOLINE INJ 200 MG/10 ML VIAL (J0330) IV (05:27)
[2018-03-04] MEDS: MIDAZOLAM HCL 100 MG in D5W 80 ML IV (05:30)
[2018-03-04] MEDS ORDERED: REFRIGERATOR IV KEYS XX (05:30)
[2018-03-04 05:37] LABS: BEDSIDE GLUCOSE 437 MG/DL (70-105)
[2018-03-04] MEDS: IPRATROPIUM 0.5MG/ALBUTEROL 2.5MG INH SOL UD 3ML (DUONEB)(J7620) NEB ×3 (05:39→19:21)
[2018-03-04 05:44] LABS: ABG BASE EXCESS -5.5 (-2.0-2.0); ABG HCO3 20.4 MEQ/L (22.0-26.0); ABG O2 SATURATION 90.6 % (95.0-99.0); ABG PARTIAL PRESSURE CO2 41.5 mmHg (35.0-45.0); ABG PARTIAL PRESSURE O2 61.8 mmHg (75.0-100.0); ABG STANDARD HCO3 19.8 MEQ/L (22.0-26.0); ABG TOTAL CO2 21.7 MEQ/L (22.0-29.0); ABG pH (ARTERIAL) 7.309 UNITS (7.350-7.450)
[2018-03-04 06:11] LABS: ACETONE/KETONE 0.52 MG/DL (<2.81); ALBUMIN 1.8 GM/DL (3.2-5.2); ALBUMIN/GLOBULIN RATIO 0.46 (1.00-1.93); ALKALINE PHOSPHATASE 131 U/L (45-117); ALT/SGPT 54 U/L (12-78); ANION GAP 12 MEQ/L (8-16); AST/SGOT 120 U/L (7-37); BILIRUBIN,TOTAL 0.3 MG/DL (0.2-1.0); BLOOD UREA NITROGEN 99 MG/DL (7-18); CALCIUM LEVEL 7.4 MG/DL (8.5-10.1); CARBON DIOXIDE LEVEL 22 MEQ/L (21-32); CHLORIDE LEVEL 111 MEQ/L (98-107); CHOLESTEROL LEVEL 89 MG/DL (< 200); CREATININE FOR GFR 3.68 MG/DL (0.70-1.30); GLOMERULAR FILTRATION RATE 18.5 (>56); LDH LACTATE DEHYDROGENASE 342 U/L (87-241); PHOSPHORUS LEVEL 3.8 MG/DL (2.5-4.9); POTASSIUM SERUM 4.3 MEQ/L (3.5-5.1); SODIUM LEVEL 145 MEQ/L (136-145); TOTAL PROTEIN 5.7 GM/DL (6.4-8.2); TRIGLYCERIDES LEVEL 331 MG/DL (<150); TROPONIN I 0.07 NG/ML (< 0.10)
[2018-03-04] MEDS: ACETAMINOPHEN TAB 650MG DOSE (2X325MG) NG (06:13)
[2018-03-04 06:20] LABS: CK-MB VALUE MASS 50.4 NG/ML (<3.6); CPK CREATINE PHOSPHOKINASE 4509 U/L (39-308); MB/CK RELATIVE INDEX 1.11 (< OR =4); THYROID STIMULATING HORMONE 0.443 uIU/ML (0.358-3.740)
[2018-03-04 06:21] LABS: GLUCOSE, FASTING 428 MG/DL (70-100)
[2018-03-04] MEDS: PIPERACILLIN/TAZOBACTAM SOD 2.25 GM in D5W MINI-BAG PLUS 50 ML IV ×4 (06:53→22:51)
[2018-03-04] MEDS: HEPARIN SOD (PORCINE) 5000 UNITS/ML VIAL SC ×3 (06:54→22:16)
[2018-03-04 07:21] LABS: BEDSIDE GLUCOSE 414 MG/DL (70-105)
[2018-03-04] MEDS: ASPIRIN 81 MG ENTERIC TAB PO (07:27)
[2018-03-04 08:09] LABS: BEDSIDE GLUCOSE 416 MG/DL (70-105)
[2018-03-04] MEDS: INSULIN HUMAN REGULAR 100 UNITS in NS 99 ML IV (08:12)
[2018-03-04] MEDS: SODIUM CHLORIDE 0.9% 1000 ML IV (08:56)
[2018-03-04] MEDS: PANTOPRAZOLE 40MG INJ (PROTONIX) (C9113) IV (08:56)
[2018-03-04] MEDS: CHLORHEXIDINE ORAL RINSE 0.12%/15ML 120ML BOTTLE MT ×2 (08:56→20:46)
[2018-03-04] MEDS ORDERED: FERROUS SULFATE 325MG TAB PO (09:00)
[2018-03-04] MEDS ORDERED: DULoxetine 30 MG CAP (CYMBALTA) PO (09:00)
[2018-03-04] MEDS ORDERED: ENOXAPARIN 30 MG/0.3 ML SYR (J1650) SC (09:00)
[2018-03-04] MEDS ORDERED: LISINOPRIL 40 MG TAB PO (09:00)
[2018-03-04] MEDS ORDERED: amLODIPine 5 MG TAB PO (09:00)
[2018-03-04] MEDS ORDERED: PANTOPRAZOLE 40MG TAB (PROTONIX) PO (09:00)
[2018-03-04 09:04] LABS: BEDSIDE GLUCOSE 369 MG/DL (70-105)
[2018-03-04 09:10] LABS: BEDSIDE GLUCOSE > 600 MG/DL (70-105)
[2018-03-04 09:10] LABS: BEDSIDE GLUCOSE > 600 MG/DL (70-105)
[2018-03-04 09:10] LABS: BEDSIDE GLUCOSE > 600 MG/DL (70-105)
[2018-03-04 09:10] LABS: BEDSIDE GLUCOSE > 600 MG/DL (70-105)
[2018-03-04 09:10] LABS: BEDSIDE GLUCOSE > 600 MG/DL (70-105)
[2018-03-04] MEDS: ACETAMINOPHEN 325 MG/10.15 ML UDC PO (09:28)
[2018-03-04] MEDS ORDERED: LIDOCAINE 1% MDV 20ML VIAL As Ordered (09:37)
[2018-03-04] MEDS: MIDAZOLAM INJ 2 MG/2 ML VIAL (J2250) IV ×2 (10:00→11:37)
[2018-03-04 10:02] LABS: BEDSIDE GLUCOSE 354 MG/DL (70-105)
[2018-03-04 10:05] LABS: ABG BASE EXCESS -4.8 (-2.0-2.0); ABG HCO3 20.4 MEQ/L (22.0-26.0); ABG O2 SATURATION 92.8 % (95.0-99.0); ABG PARTIAL PRESSURE CO2 38.1 mmHg (35.0-45.0); ABG PARTIAL PRESSURE O2 68.9 mmHg (75.0-100.0); ABG STANDARD HCO3 20.4 MEQ/L (22.0-26.0); ABG TOTAL CO2 21.6 MEQ/L (22.0-29.0); ABG pH (ARTERIAL) 7.347 UNITS (7.350-7.450)
[2018-03-04] MEDS: NOREPINEPHRINE BITARTRATE 8 MG in D5W 492 ML IV ×2 (11:04→23:07)
[2018-03-04 11:05] LABS: BEDSIDE GLUCOSE 285 MG/DL (70-105)
[2018-03-04 11:29] LABS: ANION GAP 10 MEQ/L (8-16); BLOOD UREA NITROGEN 97 MG/DL (7-18); CARBON DIOXIDE LEVEL 23 MEQ/L (21-32); CHLORIDE LEVEL 113 MEQ/L (98-107); CREATININE FOR GFR 3.21 MG/DL (0.70-1.30); GLOMERULAR FILTRATION RATE 21.7 (>56); GLUCOSE, FASTING 331 MG/DL (70-100); POTASSIUM SERUM 3.9 MEQ/L (3.5-5.1); SODIUM LEVEL 146 MEQ/L (136-145)
[2018-03-04] MEDS: MORPHINE 4 MG/ML 1ML VIAL/SYRINGE (J2270) IV ×2 (11:37→20:52)
[2018-03-04 11:43] LABS: MYOGLOBIN 11980 NG/ML (16-116)
[2018-03-04 12:17] LABS: BEDSIDE GLUCOSE 330 MG/DL (70-105)
[2018-03-04 12:22] LABS: ABG BASE EXCESS -6.4 (-2.0-2.0); ABG HCO3 19.2 MEQ/L (22.0-26.0); ABG O2 SATURATION 90.9 % (95.0-99.0); ABG PARTIAL PRESSURE CO2 38.4 mmHg (35.0-45.0); ABG PARTIAL PRESSURE O2 63.1 mmHg (75.0-100.0); ABG STANDARD HCO3 19.1 MEQ/L (22.0-26.0); ABG TOTAL CO2 20.3 MEQ/L (22.0-29.0); ABG pH (ARTERIAL) 7.316 UNITS (7.350-7.450)
[2018-03-04] MEDS: LR 1,000 ML IV ×4 (12:40→20:55)
[2018-03-04 13:06] LABS: ANION GAP 11 MEQ/L (8-16); BLOOD UREA NITROGEN 96 MG/DL (7-18); CALCIUM LEVEL 6.8 MG/DL (8.5-10.1); CARBON DIOXIDE LEVEL 21 MEQ/L (21-32); CHLORIDE LEVEL 115 MEQ/L (98-107); CREATININE FOR GFR 2.97 MG/DL (0.70-1.30); GLOMERULAR FILTRATION RATE 23.7 (>56); GLUCOSE, FASTING 314 MG/DL (70-100); POTASSIUM SERUM 3.9 MEQ/L (3.5-5.1); SODIUM LEVEL 147 MEQ/L (136-145)
[2018-03-04 13:06] LABS: BEDSIDE GLUCOSE 304 MG/DL (70-105)
[2018-03-04 13:10] LABS: TROPONIN I 0.07 NG/ML (< 0.10)
[2018-03-04 13:24] LABS: CK-MB VALUE MASS 26.7 NG/ML (<3.6); CPK CREATINE PHOSPHOKINASE 3524 U/L (39-308); MB/CK RELATIVE INDEX 0.75 (< OR =4)
[2018-03-04 14:06] LABS: BEDSIDE GLUCOSE 286 MG/DL (70-105)
[2018-03-04 15:09] LABS: BEDSIDE GLUCOSE 255 MG/DL (70-105)
[2018-03-04 16:15] LABS: BEDSIDE GLUCOSE 236 MG/DL (70-105)
[2018-03-04 16:59] LABS: BEDSIDE GLUCOSE 224 MG/DL (70-105)
[2018-03-04 18:07] LABS: BEDSIDE GLUCOSE 209 MG/DL (70-105)
[2018-03-04 19:06] LABS: BEDSIDE GLUCOSE 199 MG/DL (70-105)
[2018-03-04 20:10] LABS: BEDSIDE GLUCOSE 256 MG/DL (70-105)
[2018-03-04 21:04] LABS: ANION GAP 11 MEQ/L (8-16); BLOOD UREA NITROGEN 90 MG/DL (7-18); CALCIUM LEVEL 6.8 MG/DL (8.5-10.1); CARBON DIOXIDE LEVEL 22 MEQ/L (21-32); CHLORIDE LEVEL 115 MEQ/L (98-107); CREATININE FOR GFR 2.41 MG/DL (0.70-1.30); GLOMERULAR FILTRATION RATE 30.2 (>56); GLUCOSE, FASTING 200 MG/DL (70-100); POTASSIUM SERUM 3.6 MEQ/L (3.5-5.1); SODIUM LEVEL 148 MEQ/L (136-145)
[2018-03-04 21:07] LABS: ABG BASE EXCESS -5.6 (-2.0-2.0); ABG HCO3 19.2 MEQ/L (22.0-26.0); ABG O2 SATURATION 90.1 % (95.0-99.0); ABG PARTIAL PRESSURE CO2 34.6 mmHg (35.0-45.0); ABG PARTIAL PRESSURE O2 59.4 mmHg (75.0-100.0); ABG STANDARD HCO3 19.7 MEQ/L (22.0-26.0); ABG TOTAL CO2 20.2 MEQ/L (22.0-29.0); ABG pH (ARTERIAL) 7.361 UNITS (7.350-7.450)
[2018-03-04 21:11] LABS: BEDSIDE GLUCOSE 204 MG/DL (70-105)
[2018-03-04 21:18] LABS: CK-MB VALUE MASS 24.2 NG/ML (<3.6); CPK CREATINE PHOSPHOKINASE 3179 U/L (39-308); MB/CK RELATIVE INDEX 0.76 (< OR =4); TROPONIN I 0.06 NG/ML (< 0.10)
[2018-03-04 22:05] LABS: BEDSIDE GLUCOSE 187 MG/DL (70-105)
[2018-03-04 23:06] LABS: BEDSIDE GLUCOSE 193 MG/DL (70-105)
[2018-03-05 00:05] LABS: BEDSIDE GLUCOSE 163 MG/DL (70-105)
[2018-03-05] MEDS: VANCOMYCIN HCL 1,000 MG, VIAL MATE ADAPTER 1 EACH in D5W 250 ML IV ×2 (00:13→23:41)
[2018-03-05] MEDS: IPRATROPIUM 0.5MG/ALBUTEROL 2.5MG INH SOL UD 3ML (DUONEB)(J7620) NEB ×7 (00:22→23:51)
[2018-03-05] MEDS: INSULIN IV RATE CHANGE DOCUMENTATION ML/HR XX ×5 (01:02→11:12)
[2018-03-05 01:04] LABS: BEDSIDE GLUCOSE 208 MG/DL (70-105)
[2018-03-05 02:55] LABS: BEDSIDE GLUCOSE 214 MG/DL (70-105)
[2018-03-05] MEDS: LR 1,000 ML IV (03:32)
[2018-03-05] MEDS: PIPERACILLIN/TAZOBACTAM SOD 2.25 GM in D5W MINI-BAG PLUS 50 ML IV ×4 (04:14→22:49)
[2018-03-05 04:15] LABS: BEDSIDE GLUCOSE 214 MG/DL (70-105)
[2018-03-05 05:02] LABS: BEDSIDE GLUCOSE 222 MG/DL (70-105)
[2018-03-05 05:13] LABS: HEMATOCRIT 24.1 % (42.0-52.0); HEMOGLOBIN 8.2 g/dl (13.5-17.5); MEAN CORPUSCULAR HEMOGLOBIN 26.3 pg (27.0-33.0); MEAN CORPUSCULAR VOLUME 77.2 fl (80.0-96.0); PLATELET COUNT, AUTOMATED 150 10^3/uL (150-450); RED BLOOD COUNT 3.12 10^6/uL (4.30-6.10); RED CELL DISTRIBUTION WIDTH 14.5 % (11.5-14.5); WHITE BLOOD COUNT 17.5 10^3/uL (4.0-10.0)
[2018-03-05] MEDS: HEPARIN SOD (PORCINE) 5000 UNITS/ML VIAL SC ×2 (05:14→20:46)
[2018-03-05 05:15] LABS: ADD MANUAL DIFFER YES; DIFF SLIDE NUMBER 54; POSITIVE MORPH POS FLAG
[2018-03-05 06:01] LABS: ALBUMIN 1.4 GM/DL (3.2-5.2); ALKALINE PHOSPHATASE 82 U/L (45-117); ALT/SGPT 55 U/L (12-78); ANION GAP 11 MEQ/L (8-16); AST/SGOT 130 U/L (7-37); BILIRUBIN,TOTAL 0.7 MG/DL (0.2-1.0); BLOOD UREA NITROGEN 79 MG/DL (7-18); CALCIUM LEVEL 6.7 MG/DL (8.5-10.1); CARBON DIOXIDE LEVEL 23 MEQ/L (21-32); CHLORIDE LEVEL 114 MEQ/L (98-107); CHOLESTEROL LEVEL 64 MG/DL (< 200); CPK CREATINE PHOSPHOKINASE 1966 U/L (39-308); CREATININE FOR GFR 1.85 MG/DL (0.70-1.30); GLOMERULAR FILTRATION RATE 40.9 (>56); GLUCOSE, FASTING 207 MG/DL (70-100); LDH LACTATE DEHYDROGENASE 512 U/L (87-241); PHOSPHORUS LEVEL 3.8 MG/DL (2.5-4.9); SODIUM LEVEL 148 MEQ/L (136-145); TOTAL PROTEIN 4.2 GM/DL (6.4-8.2); TRIGLYCERIDES LEVEL 164 MG/DL (<150)
[2018-03-05 06:07] LABS: ABG BASE EXCESS -3.7 (-2.0-2.0); ABG HCO3 19.7 MEQ/L (22.0-26.0); ABG O2 SATURATION 98.6 % (95.0-99.0); ABG PARTIAL PRESSURE CO2 29.8 mmHg (35.0-45.0); ABG PARTIAL PRESSURE O2 131.3 mmHg (75.0-100.0); ABG STANDARD HCO3 21.4 MEQ/L (22.0-26.0); ABG TOTAL CO2 20.7 MEQ/L (22.0-29.0); ABG pH (ARTERIAL) 7.439 UNITS (7.350-7.450)
[2018-03-05 06:16] LABS: BEDSIDE GLUCOSE 210 MG/DL (70-105)
[2018-03-05] MEDS: MIDAZOLAM HCL 100 MG in D5W 80 ML IV (06:33)
[2018-03-05 07:05] LABS: BEDSIDE GLUCOSE 191 MG/DL (70-105)
[2018-03-05 07:16] LABS: BANDS 10 % (< 11); LYMPHOCYTES 7 % (16-52); METAMYELOCYTES 5 % (0-0); MONOCYTES 5 % (0-8); MYELOCYTES 3 % (0-0); NEUTROPHILS 70 % (35-75)
[2018-03-05 07:17] LABS: ANISOCYTOSIS 1+; HYPOCHROMASIA 1+; PLATELET ESTIMATE NORMAL (NORMAL); TOXIC VACUOLATION 2+
[2018-03-05] MEDS: NOREPINEPHRINE BITARTRATE 8 MG in D5W 492 ML IV ×6 (08:09→11:10)
[2018-03-05 08:14] LABS: BEDSIDE GLUCOSE 215 MG/DL (70-105)
[2018-03-05] MEDS: ASPIRIN 81 MG ENTERIC TAB PO (09:12)
[2018-03-05] MEDS: INSULIN HUMAN REGULAR 100 UNITS in NS 99 ML IV (09:12)
[2018-03-05] MEDS: PANTOPRAZOLE 40MG INJ (PROTONIX) (C9113) IV (09:12)
[2018-03-05 09:19] LABS: BEDSIDE GLUCOSE 225 MG/DL (70-105)
[2018-03-05] MEDS: MAG SULF 1GM/100ML (MAG RUN) 1 GM in APPROPRIATE DILUENT 1 EA IV ×2 (09:25→10:13)
[2018-03-05 09:32] LABS: BEDSIDE GLUCOSE 201 MG/DL (70-105)
[2018-03-05] MEDS ORDERED: DIGOXIN INJ 0.5 MG/2 ML AMP (J1160) As Ordered (09:52)
[2018-03-05] MEDS: DIGOXIN INJ 0.5 MG/2 ML AMP (J1160) IV ×2 (09:59→10:50)
[2018-03-05] MEDS: CHLORHEXIDINE ORAL RINSE 0.12%/15ML 120ML BOTTLE MT ×2 (09:59→20:46)
[2018-03-05 10:31] LABS: BEDSIDE GLUCOSE 199 MG/DL (70-105)
[2018-03-05 12:29] LABS: BEDSIDE GLUCOSE 210 MG/DL (70-105)
[2018-03-05 12:58] LABS: BEDSIDE GLUCOSE 269 MG/DL (70-105)
[2018-03-05 13:06] LABS: BEDSIDE GLUCOSE 226 MG/DL (70-105)
[2018-03-05 15:00] LABS: BEDSIDE GLUCOSE 295 MG/DL (70-105)
[2018-03-05 15:01] LABS: BEDSIDE GLUCOSE 256 MG/DL (70-105)
[2018-03-05 16:33] LABS: BEDSIDE GLUCOSE 202 MG/DL (70-105)
[2018-03-05 17:27] LABS: BEDSIDE GLUCOSE 249 MG/DL (70-105)
[2018-03-05 19:01] LABS: BEDSIDE GLUCOSE 249 MG/DL (70-105)
[2018-03-05 19:05] LABS: BEDSIDE GLUCOSE 237 MG/DL (70-105)
[2018-03-05 19:56] LABS: BEDSIDE GLUCOSE 261 MG/DL (70-105)
[2018-03-05 20:59] LABS: BEDSIDE GLUCOSE 259 MG/DL (70-105)
[2018-03-05 22:55] LABS: BEDSIDE GLUCOSE 272 MG/DL (70-105)
[2018-03-05 22:57] LABS: BEDSIDE GLUCOSE 256 MG/DL (70-105)
[2018-03-05 23:10] LABS: VANCOMYCIN LEVEL TROUGH 9.2 UG/ML (10.0-20.0)
[2018-03-06] MEDS: INSULIN IV RATE CHANGE DOCUMENTATION ML/HR XX ×11 (00:18→21:14)
[2018-03-06] MEDS: NOREPINEPHRINE BITARTRATE 8 MG in D5W 492 ML IV ×2 (00:56→14:08)
[2018-03-06 01:00] LABS: BEDSIDE GLUCOSE 316 MG/DL (70-105)
[2018-03-06 01:01] LABS: BEDSIDE GLUCOSE 303 MG/DL (70-105)
[2018-03-06 02:07] LABS: BEDSIDE GLUCOSE 327 MG/DL (70-105)
[2018-03-06 03:10] LABS: BEDSIDE GLUCOSE 331 MG/DL (70-105)
[2018-03-06 04:09] LABS: BEDSIDE GLUCOSE 357 MG/DL (70-105)
[2018-03-06] MEDS: IPRATROPIUM 0.5MG/ALBUTEROL 2.5MG INH SOL UD 3ML (DUONEB)(J7620) NEB ×7 (04:12→23:40)
[2018-03-06] MEDS: PIPERACILLIN/TAZOBACTAM SOD 2.25 GM in D5W MINI-BAG PLUS 50 ML IV ×4 (04:57→22:20)
[2018-03-06 05:01] LABS: BEDSIDE GLUCOSE 375 MG/DL (70-105)
[2018-03-06 05:12] LABS: HEMATOCRIT 23.2 % (42.0-52.0); HEMOGLOBIN 7.8 g/dl (13.5-17.5); MEAN CORPUSCULAR HEMOGLOBIN 25.9 pg (27.0-33.0); MEAN CORPUSCULAR HGB CONC 33.6 g/dl (32.0-36.5); MEAN CORPUSCULAR VOLUME 77.1 fl (80.0-96.0); PLATELET COUNT, AUTOMATED 118 10^3/uL (150-450); RED BLOOD COUNT 3.01 10^6/uL (4.30-6.10); RED CELL DISTRIBUTION WIDTH 14.6 % (11.5-14.5); WHITE BLOOD COUNT 15.6 10^3/uL (4.0-10.0)
[2018-03-06 05:20] LABS: ADD MANUAL DIFFER YES; DIFF SLIDE NUMBER 49; POSITIVE MORPH POS FLAG
[2018-03-06 05:41] LABS: ALBUMIN 1.3 GM/DL (3.2-5.2); ALBUMIN/GLOBULIN RATIO 0.41 (1.00-1.93); ALKALINE PHOSPHATASE 86 U/L (45-117); ALT/SGPT 49 U/L (12-78); ANION GAP 8 MEQ/L (8-16); AST/SGOT 57 U/L (7-37); BILIRUBIN,TOTAL 0.7 MG/DL (0.2-1.0); BLOOD UREA NITROGEN 66 MG/DL (7-18); CALCIUM LEVEL 7.7 MG/DL (8.5-10.1); CARBON DIOXIDE LEVEL 25 MEQ/L (21-32); CHLORIDE LEVEL 117 MEQ/L (98-107); CHOLESTEROL LEVEL 57 MG/DL (< 200); CPK CREATINE PHOSPHOKINASE 492 U/L (39-308); CREATININE FOR GFR 1.61 MG/DL (0.70-1.30); GLUCOSE, FASTING 370 MG/DL (70-100); LDH LACTATE DEHYDROGENASE 328 U/L (87-241); MAGNESIUM LEVEL 1.8 MG/DL (1.8-2.4); POTASSIUM SERUM 3.6 MEQ/L (3.5-5.1); SODIUM LEVEL 150 MEQ/L (136-145); TOTAL PROTEIN 4.5 GM/DL (6.4-8.2); TRIGLYCERIDES LEVEL 154 MG/DL (<150)
[2018-03-06 05:42] LABS: BANDS 4 % (< 11); LYMPHOCYTES 7 % (16-52); METAMYELOCYTES 1 % (0-0); MONOCYTES 1 % (0-8); NEUTROPHILS 87 % (35-75); PLATELET ESTIMATE DECREASED (NORMAL)
[2018-03-06] MEDS: MIDAZOLAM HCL 100 MG in D5W 80 ML IV (06:04)
[2018-03-06 06:16] LABS: BEDSIDE GLUCOSE 347 MG/DL (70-105)
[2018-03-06 07:30] LABS: BEDSIDE GLUCOSE 366 MG/DL (70-105)
[2018-03-06 08:15] LABS: BEDSIDE GLUCOSE 418 MG/DL (70-105)
[2018-03-06] MEDS: PANTOPRAZOLE 40MG INJ (PROTONIX) (C9113) IV ×2 (08:58→20:31)
[2018-03-06 09:41] LABS: BEDSIDE GLUCOSE 407 MG/DL (70-105)
[2018-03-06] MEDS: INSULIN HUMAN REGULAR 100 UNITS in NS 99 ML IV ×2 (09:42→22:55)
[2018-03-06] MEDS: CHLORHEXIDINE ORAL RINSE 0.12%/15ML 120ML BOTTLE MT ×2 (09:44→20:31)
[2018-03-06] MEDS: D5W 1,000 ML IV (10:25)
[2018-03-06] MEDS: FONDAPARINUX SODIUM 2.5 MG/0.5 ML SYR (J1652 PER 0.5MG) SC (10:54)
[2018-03-06 11:21] LABS: BEDSIDE GLUCOSE 385 MG/DL (70-105)
[2018-03-06] MEDS: POTASSIUM PHOSPHATE INJ 18 MMOL in D5W 250 ML IV (11:28)
[2018-03-06] MEDS: VANCOMYCIN HCL 1,000 MG, VIAL MATE ADAPTER 1 EACH in D5W 250 ML IV (12:30)
[2018-03-06 13:05] LABS: BEDSIDE GLUCOSE 405 MG/DL (70-105)
[2018-03-06 15:08] LABS: IMMEDIATE SPIN CROSSMATCH 1 1
[2018-03-06 15:11] LABS: BEDSIDE GLUCOSE 287 MG/DL (70-105)
[2018-03-06 16:23] LABS: BEDSIDE GLUCOSE 276 MG/DL (70-105)
[2018-03-06 17:40] LABS: ANION GAP 12 MEQ/L (8-16); BLOOD UREA NITROGEN 63 MG/DL (7-18); CALCIUM LEVEL 7.7 MG/DL (8.5-10.1); CARBON DIOXIDE LEVEL 22 MEQ/L (21-32); CHLORIDE LEVEL 117 MEQ/L (98-107); CREATININE FOR GFR 1.53 MG/DL (0.70-1.30); GLOMERULAR FILTRATION RATE 50.9 (>56); GLUCOSE, FASTING 273 MG/DL (70-100); POTASSIUM SERUM 3.4 MEQ/L (3.5-5.1); SODIUM LEVEL 151 MEQ/L (136-145)
[2018-03-06 18:17] LABS: BEDSIDE GLUCOSE 209 MG/DL (70-105)
[2018-03-06 20:09] LABS: BEDSIDE GLUCOSE 125 MG/DL (70-105)
[2018-03-06 21:16] LABS: BEDSIDE GLUCOSE 85 MG/DL (70-105)
[2018-03-06 22:06] LABS: BEDSIDE GLUCOSE 101 MG/DL (70-105)
[2018-03-06 23:36] LABS: ANION GAP 7 MEQ/L (8-16); BLOOD UREA NITROGEN 58 MG/DL (7-18); CALCIUM LEVEL 7.4 MG/DL (8.5-10.1); CARBON DIOXIDE LEVEL 25 MEQ/L (21-32); CHLORIDE LEVEL 120 MEQ/L (98-107); CREATININE FOR GFR 1.56 MG/DL (0.70-1.30); GLOMERULAR FILTRATION RATE 49.8 (>56); GLUCOSE, FASTING 103 MG/DL (70-100); POTASSIUM SERUM 3.5 MEQ/L (3.5-5.1); SODIUM LEVEL 152 MEQ/L (136-145)
[2018-03-06 23:38] LABS: VANCOMYCIN LEVEL TROUGH 17.9 UG/ML (10.0-20.0)
[2018-03-07 00:11] LABS: BEDSIDE GLUCOSE 98 MG/DL (70-105)
[2018-03-07] MEDS: D5W 1,000 ML IV ×3 (01:54→15:30)
[2018-03-07] MEDS: INSULIN IV RATE CHANGE DOCUMENTATION ML/HR XX ×3 (01:59→18:18)
[2018-03-07 02:01] LABS: BEDSIDE GLUCOSE 144 MG/DL (70-105)
[2018-03-07] MEDS: IPRATROPIUM 0.5MG/ALBUTEROL 2.5MG INH SOL UD 3ML (DUONEB)(J7620) NEB ×6 (03:40→23:13)
[2018-03-07 03:56] LABS: BEDSIDE GLUCOSE 117 MG/DL (70-105)
[2018-03-07 05:13] LABS: HEMATOCRIT 23.3 % (42.0-52.0); MEAN CORPUSCULAR HEMOGLOBIN 26.7 pg (27.0-33.0); MEAN CORPUSCULAR HGB CONC 34.3 g/dl (32.0-36.5); MEAN CORPUSCULAR VOLUME 77.7 fl (80.0-96.0); PLATELET COUNT, AUTOMATED 117 10^3/uL (150-450); RED CELL DISTRIBUTION WIDTH 15.3 % (11.5-14.5); WHITE BLOOD COUNT 14.8 10^3/uL (4.0-10.0)
[2018-03-07 05:19] LABS: ADD MANUAL DIFFER YES; DIFF SLIDE NUMBER 27; POSITIVE MORPH POS FLAG
[2018-03-07] MEDS: PIPERACILLIN/TAZOBACTAM SOD 2.25 GM in D5W MINI-BAG PLUS 50 ML IV ×4 (05:30→22:53)
[2018-03-07 05:36] LABS: ALBUMIN 1.1 GM/DL (3.2-5.2); ALBUMIN/GLOBULIN RATIO 0.34 (1.00-1.93); ALKALINE PHOSPHATASE 102 U/L (45-117); ALT/SGPT 35 U/L (12-78); ANION GAP 11 MEQ/L (8-16); AST/SGOT 44 U/L (7-37); BILIRUBIN,TOTAL 0.7 MG/DL (0.2-1.0); BLOOD UREA NITROGEN 58 MG/DL (7-18); CALCIUM LEVEL 7.2 MG/DL (8.5-10.1); CARBON DIOXIDE LEVEL 23 MEQ/L (21-32); CHLORIDE LEVEL 118 MEQ/L (98-107); CHOLESTEROL LEVEL 54 MG/DL (< 200); CPK CREATINE PHOSPHOKINASE 460 U/L (39-308); CREATININE FOR GFR 1.41 MG/DL (0.70-1.30); GLUCOSE, FASTING 110 MG/DL (70-100); LDH LACTATE DEHYDROGENASE 329 U/L (87-241); MAGNESIUM LEVEL 1.6 MG/DL (1.8-2.4); PHOSPHORUS LEVEL 2.5 MG/DL (2.5-4.9); POTASSIUM SERUM 3.4 MEQ/L (3.5-5.1); SODIUM LEVEL 152 MEQ/L (136-145); TOTAL PROTEIN 4.3 GM/DL (6.4-8.2); TRIGLYCERIDES LEVEL 136 MG/DL (<150)
[2018-03-07 05:38] LABS: EOSINOPHILS 1 % (0-5); LYMPHOCYTES 8 % (16-52); MONOCYTES 5 % (0-8); NEUTROPHILS 86 % (35-75); PLATELET ESTIMATE DECREASED (NORMAL)
[2018-03-07 05:39] LABS: HYPOCHROMASIA 1+; MICROCYTOSIS 1+
[2018-03-07 06:11] LABS: ABG BASE EXCESS -0.5 (-2.0-2.0); ABG HCO3 22.3 MEQ/L (22.0-26.0); ABG PARTIAL PRESSURE CO2 29.8 mmHg (35.0-45.0); ABG PARTIAL PRESSURE O2 63.1 mmHg (75.0-100.0); ABG TOTAL CO2 23.2 MEQ/L (22.0-29.0); ABG pH (ARTERIAL) 7.492 UNITS (7.350-7.450)
[2018-03-07 06:34] LABS: BEDSIDE GLUCOSE 104 MG/DL (70-105)
[2018-03-07 08:23] LABS: BEDSIDE GLUCOSE 103 MG/DL (70-105)
[2018-03-07] MEDS: THIAMINE 100 MG TAB PO (09:43)
[2018-03-07] MEDS: PANTOPRAZOLE 40MG INJ (PROTONIX) (C9113) IV ×2 (09:43→20:42)
[2018-03-07] MEDS: CHLORHEXIDINE ORAL RINSE 0.12%/15ML 120ML BOTTLE MT ×2 (09:43→20:42)
[2018-03-07] MEDS: MULTIVITAMINS/MINERALS THERAP 1 TAB PO (09:43)
[2018-03-07] MEDS: FONDAPARINUX SODIUM 2.5 MG/0.5 ML SYR (J1652 PER 0.5MG) SC (09:44)
[2018-03-07 10:19] LABS: BEDSIDE GLUCOSE 96 MG/DL (70-105)
[2018-03-07] MEDS: MAG SULF 1GM/100ML (MAG RUN) 1 GM in APPROPRIATE DILUENT 1 EA IV (10:20)
[2018-03-07] MEDS: metroNIDAZOLE 500 MG in APPROPRIATE DILUENT 1 EA IV ×2 (10:20→18:16)
[2018-03-07 11:03] LABS: BEDSIDE GLUCOSE 102 MG/DL (70-105)
[2018-03-07] MEDS: ACETAMINOPHEN 325 MG/10.15 ML UDC GT (12:07)
[2018-03-07 12:13] LABS: BEDSIDE GLUCOSE 101 MG/DL (70-105)
[2018-03-07] MEDS: VANCOMYCIN HCL 1,000 MG, VIAL MATE ADAPTER 1 EACH in D5W 250 ML IV ×2 (12:34)
[2018-03-07 13:07] LABS: BEDSIDE GLUCOSE 133 MG/DL (70-105)
[2018-03-07 14:14] LABS: BEDSIDE GLUCOSE 148 MG/DL (70-105)
[2018-03-07] MEDS ORDERED: SODIUM CHLORIDE 0.9% INJ 10 ML SYR IV (15:30)
[2018-03-07] MEDS: NOREPINEPHRINE BITARTRATE 8 MG in D5W 492 ML IV (16:00)
[2018-03-07 16:04] LABS: BEDSIDE GLUCOSE 126 MG/DL (70-105)
[2018-03-07] MEDS: INSULIN HUMAN REGULAR 100 UNITS in NS 99 ML IV (16:18)
[2018-03-07 16:36] LABS: HEMATOCRIT 22.8 % (42.0-52.0); HEMOGLOBIN 7.7 g/dl (13.5-17.5); MEAN CORPUSCULAR HEMOGLOBIN 26.4 pg (27.0-33.0); MEAN CORPUSCULAR HGB CONC 33.8 g/dl (32.0-36.5); MEAN CORPUSCULAR VOLUME 78.1 fl (80.0-96.0); PLATELET COUNT, AUTOMATED 107 10^3/uL (150-450); RED BLOOD COUNT 2.92 10^6/uL (4.30-6.10); RED CELL DISTRIBUTION WIDTH 15.7 % (11.5-14.5); WHITE BLOOD COUNT 12.6 10^3/uL (4.0-10.0)
[2018-03-07 16:41] LABS: POSITIVE MORPH POS FLAG
[2018-03-07 16:42] LABS: ADD MANUAL DIFFER YES; DIFF SLIDE NUMBER 214
[2018-03-07 17:01] LABS: ATYPICAL LYMPH 1 % (0-5); BANDS 1 % (< 11); EOSINOPHILS 1 % (0-5); LYMPHOCYTES 13 % (16-52); MONOCYTES 8 % (0-8); NEUTROPHILS 76 % (35-75)
[2018-03-07 17:02] LABS: HYPOCHROMASIA 1+; MICROCYTOSIS 1+
[2018-03-07 17:03] LABS: ALBUMIN 1.2 GM/DL (3.2-5.2); ALBUMIN/GLOBULIN RATIO 0.38 (1.00-1.93); ALKALINE PHOSPHATASE 92 U/L (45-117); ALT/SGPT 35 U/L (12-78); ANION GAP 12 MEQ/L (8-16); AST/SGOT 48 U/L (7-37); BILIRUBIN,TOTAL 1.3 MG/DL (0.2-1.0); BLOOD UREA NITROGEN 58 MG/DL (7-18); CALCIUM LEVEL 7.2 MG/DL (8.5-10.1); CARBON DIOXIDE LEVEL 21 MEQ/L (21-32); CHLORIDE LEVEL 114 MEQ/L (98-107); GLOMERULAR FILTRATION RATE 52.1 (>56); GLUCOSE, FASTING 123 MG/DL (70-100); PLATELET ESTIMATE DECREASED (NORMAL); SODIUM LEVEL 147 MEQ/L (136-145); TOTAL PROTEIN 4.4 GM/DL (6.4-8.2); TOXIC GRANULATION 1+
[2018-03-07] MEDS: KCL 20MEQ IN 100ML SWI (KRUN) 20 MEQ in APPROPRIATE DILUENT 1 EA IV ×2 (18:17→19:30)
[2018-03-07 18:18] LABS: BEDSIDE GLUCOSE 87 MG/DL (70-105)
[2018-03-07 19:03] LABS: BEDSIDE GLUCOSE 93 MG/DL (70-105)
[2018-03-07] MEDS: SODIUM CHLORIDE 0.9% INJ 10 ML SYR IV (20:42)
[2018-03-07 21:06] LABS: BEDSIDE GLUCOSE 107 MG/DL (70-105)
[2018-03-07 23:00] LABS: BEDSIDE GLUCOSE 101 MG/DL (70-105)
[2018-03-08 00:14] LABS: HEPARIN INDUCED PLATELET ABY 0.196 OD (0.000-0.400)
[2018-03-08] MEDS: ACETAMINOPHEN 325 MG/10.15 ML UDC GT (00:57)
[2018-03-08 01:14] LABS: BEDSIDE GLUCOSE 120 MG/DL (70-105)
[2018-03-08] MEDS: metroNIDAZOLE 500 MG in APPROPRIATE DILUENT 1 EA IV ×3 (01:44→18:26)
[2018-03-08] MEDS: D5W 1,000 ML IV ×2 (01:48→14:28)
[2018-03-08 03:18] LABS: BEDSIDE GLUCOSE 134 MG/DL (70-105)
[2018-03-08] MEDS: INSULIN IV RATE CHANGE DOCUMENTATION ML/HR XX ×6 (03:19→16:48)
[2018-03-08] MEDS: MIDAZOLAM INJ 2 MG/2 ML VIAL (J2250) IV ×6 (03:48→14:28)
[2018-03-08] MEDS: IPRATROPIUM 0.5MG/ALBUTEROL 2.5MG INH SOL UD 3ML (DUONEB)(J7620) NEB ×6 (04:23→23:06)
[2018-03-08 05:00] LABS: BEDSIDE GLUCOSE 143 MG/DL (70-105)
[2018-03-08] MEDS: SODIUM CHLORIDE 0.9% INJ 10 ML SYR IV ×3 (05:13→20:03)
[2018-03-08] MEDS: PIPERACILLIN/TAZOBACTAM SOD 2.25 GM in D5W MINI-BAG PLUS 50 ML IV (05:13)
[2018-03-08 06:25] LABS: ABG BASE EXCESS -5.6 (-2.0-2.0); ABG HCO3 17.9 MEQ/L (22.0-26.0); ABG O2 SATURATION 97.9 % (95.0-99.0); ABG PARTIAL PRESSURE CO2 27.9 mmHg (35.0-45.0); ABG STANDARD HCO3 19.8 MEQ/L (22.0-26.0); ABG TOTAL CO2 18.8 MEQ/L (22.0-29.0); ABG pH (ARTERIAL) 7.426 UNITS (7.350-7.450)
[2018-03-08 06:56] LABS: BEDSIDE GLUCOSE 113 MG/DL (70-105)
[2018-03-08 07:32] LABS: BASO % 0.2 % (0.0-1.0); EOS # 0.2 10^3/uL (0.0-0.50); EOS % 1.4 % (0.0-3.0); HEMATOCRIT 23.1 % (42.0-52.0); LYMPH % 7.4 % (24.0-44.0); MEAN CORPUSCULAR HEMOGLOBIN 26.8 pg (27.0-33.0); MEAN CORPUSCULAR HGB CONC 32.9 g/dl (32.0-36.5); MEAN CORPUSCULAR VOLUME 81.3 fl (80.0-96.0); MONO # 0.9 10^3/uL (0.0-0.8); MONO % 6.9 % (0.0-5.0); NEUTROPHILS # 10.4 10^3/uL (1.8-7.7); NEUTROPHILS % 81.1 % (36.0-66.0); RED BLOOD COUNT 2.84 10^6/uL (4.30-6.10); RED CELL DISTRIBUTION WIDTH 15.9 % (11.5-14.5); WHITE BLOOD COUNT 12.9 10^3/uL (4.0-10.0)
[2018-03-08 07:37] LABS: POSITIVE MORPH POS FLAG
[2018-03-08 07:43] LABS: HEMOGLOBIN 7.6 g/dl (13.5-17.5); PLATELET COUNT, AUTOMATED 104 10^3/uL (150-450)
[2018-03-08 07:48] LABS: ALBUMIN 1.2 GM/DL (3.2-5.2); ALBUMIN/GLOBULIN RATIO 0.36 (1.00-1.93); ALKALINE PHOSPHATASE 94 U/L (45-117); ALT/SGPT 31 U/L (12-78); ANION GAP 13 MEQ/L (8-16); AST/SGOT 47 U/L (7-37); BILIRUBIN,TOTAL 1.3 MG/DL (0.2-1.0); BLOOD UREA NITROGEN 58 MG/DL (7-18); CALCIUM LEVEL 7.4 MG/DL (8.5-10.1); CARBON DIOXIDE LEVEL 18 MEQ/L (21-32); CHLORIDE LEVEL 116 MEQ/L (98-107); CHOLESTEROL LEVEL 52 MG/DL (< 200); CPK CREATINE PHOSPHOKINASE 273 U/L (39-308); CREATININE FOR GFR 1.51 MG/DL (0.70-1.30); GLOMERULAR FILTRATION RATE 51.7 (>56); GLUCOSE, FASTING 123 MG/DL (70-100); LDH LACTATE DEHYDROGENASE 442 U/L (87-241); MAGNESIUM LEVEL 1.9 MG/DL (1.8-2.4); PHOSPHORUS LEVEL 3.4 MG/DL (2.5-4.9); POTASSIUM SERUM 3.4 MEQ/L (3.5-5.1); SODIUM LEVEL 147 MEQ/L (136-145); TOTAL PROTEIN 4.5 GM/DL (6.4-8.2); TRIGLYCERIDES LEVEL 134 MG/DL (<150)
[2018-03-08] MEDS: PANTOPRAZOLE 40MG INJ (PROTONIX) (C9113) IV ×2 (08:42→20:02)
[2018-03-08 08:54] LABS: BEDSIDE GLUCOSE 85 MG/DL (70-105)
[2018-03-08 09:13] LABS: CENTRAL VEN O2 SATURATION 97.1 %
[2018-03-08 09:22] LABS: LACTIC ACID SEPSIS PROTOCOL 1.7 MMOL/L (0.4-2.0)
[2018-03-08] MEDS: MORPHINE 4 MG/ML 1ML VIAL/SYRINGE (J2270) IV ×3 (09:25→16:47)
[2018-03-08 09:55] LABS: BEDSIDE GLUCOSE 98 MG/DL (70-105)
[2018-03-08] MEDS: THIAMINE 100 MG TAB PO (10:18)
[2018-03-08] MEDS: ceFAZolin SOD 1 GM in D5W MINI-BAG PLUS 50 ML IV ×2 (10:18→16:46)
[2018-03-08] MEDS: CHLORHEXIDINE ORAL RINSE 0.12%/15ML 120ML BOTTLE MT ×2 (10:18→20:02)
[2018-03-08] MEDS: LOPERAMIDE ORAL SOLN 1MG/5ML UD GT ×2 (11:02→23:02)
[2018-03-08 12:25] LABS: BEDSIDE GLUCOSE 153 MG/DL (70-105)
[2018-03-08 14:04] LABS: ABG BASE EXCESS -8.2 (-2.0-2.0); ABG HCO3 17.8 MEQ/L (22.0-26.0); ABG O2 SATURATION 95.5 % (95.0-99.0); ABG PARTIAL PRESSURE CO2 38.6 mmHg (35.0-45.0); ABG PARTIAL PRESSURE O2 84.7 mmHg (75.0-100.0); ABG STANDARD HCO3 17.7 MEQ/L (22.0-26.0); ABG pH (ARTERIAL) 7.282 UNITS (7.350-7.450)
[2018-03-08 14:16] LABS: IMMEDIATE SPIN CROSSMATCH 1 2
[2018-03-08] MEDS: INSULIN HUMAN REGULAR 100 UNITS in NS 99 ML IV ×2 (14:33→21:00)
[2018-03-08 14:34] LABS: BEDSIDE GLUCOSE 175 MG/DL (70-105)
[2018-03-08 15:09] LABS: ANION GAP 9 MEQ/L (8-16); BLOOD UREA NITROGEN 57 MG/DL (7-18); CALCIUM LEVEL 7.8 MG/DL (8.5-10.1); CARBON DIOXIDE LEVEL 21 MEQ/L (21-32); CHLORIDE LEVEL 115 MEQ/L (98-107); CREATININE FOR GFR 1.61 MG/DL (0.70-1.30); GLUCOSE, FASTING 197 MG/DL (70-100); POTASSIUM SERUM 3.7 MEQ/L (3.5-5.1); SODIUM LEVEL 145 MEQ/L (136-145)
[2018-03-08 17:18] LABS: BEDSIDE GLUCOSE 138 MG/DL (70-105)
[2018-03-08 18:24] LABS: BEDSIDE GLUCOSE 101 MG/DL (70-105)
[2018-03-08 20:14] LABS: BEDSIDE GLUCOSE 60 MG/DL (70-105)
[2018-03-08 20:20] LABS: BEDSIDE GLUCOSE 53 MG/DL (70-105)
[2018-03-08] MEDS: DEXTROSE 50% 50 ML SYRINGE IV (20:37)
[2018-03-08 20:59] LABS: BEDSIDE GLUCOSE 147 MG/DL (70-105)
[2018-03-08 22:04] LABS: BEDSIDE GLUCOSE 156 MG/DL (70-105)
[2018-03-09 00:02] LABS: BEDSIDE GLUCOSE 216 MG/DL (70-105)
[2018-03-09] MEDS: ceFAZolin SOD 1 GM in D5W MINI-BAG PLUS 50 ML IV (01:40)
[2018-03-09 02:07] LABS: BEDSIDE GLUCOSE 287 MG/DL (70-105)
[2018-03-09] MEDS: INSULIN HUMAN REGULAR 100 UNITS in NS 99 ML IV (02:07)
[2018-03-09] MEDS: INSULIN IV RATE CHANGE DOCUMENTATION ML/HR XX ×5 (02:11→08:34)
[2018-03-09] MEDS: metroNIDAZOLE 500 MG in APPROPRIATE DILUENT 1 EA IV ×2 (02:32→10:04)
[2018-03-09 03:07] LABS: BEDSIDE GLUCOSE 285 MG/DL (70-105)
[2018-03-09] MEDS: IPRATROPIUM 0.5MG/ALBUTEROL 2.5MG INH SOL UD 3ML (DUONEB)(J7620) NEB ×2 (04:49→07:33)
[2018-03-09 05:04] LABS: BEDSIDE GLUCOSE 266 MG/DL (70-105)
[2018-03-09 05:59] LABS: HEMATOCRIT 27.1 % (42.0-52.0); HEMOGLOBIN 8.6 g/dl (13.5-17.5); MEAN CORPUSCULAR HEMOGLOBIN 26.9 pg (27.0-33.0); MEAN CORPUSCULAR HGB CONC 31.7 g/dl (32.0-36.5); MEAN CORPUSCULAR VOLUME 84.7 fl (80.0-96.0); PLATELET COUNT, AUTOMATED 151 10^3/uL (150-450); RED CELL DISTRIBUTION WIDTH 16.8 % (11.5-14.5); WHITE BLOOD COUNT 16.2 10^3/uL (4.0-10.0)
[2018-03-09] MEDS: SODIUM CHLORIDE 0.9% INJ 10 ML SYR IV (06:00)
[2018-03-09 06:05] LABS: POSITIVE MORPH POS FLAG
[2018-03-09 06:06] LABS: ADD MANUAL DIFFER YES; DIFF SLIDE NUMBER 15
[2018-03-09 06:08] LABS: ALBUMIN 1.2 GM/DL (3.2-5.2); ALBUMIN/GLOBULIN RATIO 0.34 (1.00-1.93); ALKALINE PHOSPHATASE 84 U/L (45-117); ALT/SGPT 23 U/L (12-78); ANION GAP 10 MEQ/L (8-16); AST/SGOT 21 U/L (7-37); BILIRUBIN,TOTAL 0.5 MG/DL (0.2-1.0); BLOOD UREA NITROGEN 67 MG/DL (7-18); CALCIUM LEVEL 7.3 MG/DL (8.5-10.1); CARBON DIOXIDE LEVEL 21 MEQ/L (21-32); CHLORIDE LEVEL 117 MEQ/L (98-107); CHOLESTEROL LEVEL 54 MG/DL (< 200); CPK CREATINE PHOSPHOKINASE 88 U/L (39-308); CREATININE FOR GFR 1.86 MG/DL (0.70-1.30); GLOMERULAR FILTRATION RATE 40.7 (>56); GLUCOSE, FASTING 245 MG/DL (70-100); LDH LACTATE DEHYDROGENASE 303 U/L (87-241); MAGNESIUM LEVEL 2.1 MG/DL (1.8-2.4); POTASSIUM SERUM 3.9 MEQ/L (3.5-5.1); SODIUM LEVEL 148 MEQ/L (136-145); TOTAL PROTEIN 4.7 GM/DL (6.4-8.2); TRIGLYCERIDES LEVEL 138 MG/DL (<150)
[2018-03-09 06:15] LABS: ABG BASE EXCESS -9.2 (-2.0-2.0); ABG O2 SATURATION 97.7 % (95.0-99.0); ABG PARTIAL PRESSURE CO2 52.1 mmHg (35.0-45.0); ABG PARTIAL PRESSURE O2 108.2 mmHg (75.0-100.0); ABG TOTAL CO2 20.6 MEQ/L (22.0-29.0); ABG pH (ARTERIAL) 7.179 UNITS (7.350-7.450)
[2018-03-09 06:25] LABS: PHOSPHORUS LEVEL 5.3 MG/DL (2.5-4.9)
[2018-03-09 06:45] LABS: BANDS 7 % (< 11); LYMPHOCYTES 13 % (16-52); MONOCYTES 3 % (0-8); NEUTROPHILS 77 % (35-75)
[2018-03-09 06:46] LABS: ANISOCYTOSIS 1+; HYPOCHROMASIA 1+; MICROCYTOSIS 1+; PLATELET ESTIMATE NORMAL (NORMAL)
[2018-03-09 06:53] LABS: BEDSIDE GLUCOSE 201 MG/DL (70-105)
[2018-03-09] MEDS: SODIUM BICARBONATE 100 MEQ in STERILE WATER LITER BAG 1,000 ML IV (07:40)
[2018-03-09] MEDS: PANTOPRAZOLE 40MG INJ (PROTONIX) (C9113) IV (07:40)
[2018-03-09] MEDS ORDERED: PROPOFOL 1,000 MG/100 ML VIAL As Ordered (08:04)
[2018-03-09] MEDS ORDERED: NOREPINEPHRINE 4 MG/4 ML AMP As Ordered (08:04)
[2018-03-09 08:08] LABS: BEDSIDE GLUCOSE 160 MG/DL (70-105)
[2018-03-09] MEDS ORDERED: NOREPINEPHRINE BITARTRATE 8 MG in D5W 492 ML IV ×2 (09:00→21:00)
[2018-03-09 09:21] LABS: CENTRAL VEN O2 SATURATION 97.1 %
[2018-03-09 09:48] LABS: LACTIC ACID SEPSIS PROTOCOL 1.4 MMOL/L (0.4-2.0)
[2018-03-09] MEDS: PROPOFOL 1,000 MG in APPROPRIATE DILUENT 1 EA IV (10:02)
[2018-03-09] MEDS: THIAMINE 100 MG TAB PO (10:03)
[2018-03-09] MEDS: CHOLESTYRAMINE 4 GM PWD PKT PO (10:03)
[2018-03-09] MEDS: CHLORHEXIDINE ORAL RINSE 0.12%/15ML 120ML BOTTLE MT (10:03)
[2018-03-09] MEDS: PIPERACILLIN/TAZOBACTAM SOD 2.25 GM in D5W MINI-BAG PLUS 50 ML IV (10:04)
[2018-03-09] MEDS: VANCOMYCIN HCL 1,000 MG, VIAL MATE ADAPTER 1 EACH in D5W 250 ML IV (10:04)
[2018-03-09] MEDS: FAMOTIDINE IV BAG 20 MG in APPROPRIATE DILUENT 1 EA IV (10:05)
[2018-03-09] MEDS: MORPHINE 4 MG/ML 1ML VIAL/SYRINGE (J2270) IV (10:45)
== END 2018-03-09 13:25 | disposition expired | DRG 951 ==
LOC: M ED 17:53 → M ED INP 21:28 → M ICU 22:29
PROC: 5A1955Z Respiratory Ventilation, Greater than 96 Consecutive Hours (ICD-10-PCS; principal; 2018-03-03)
PROC: 02HV33Z Insertion of Infusion Device into Superior Vena Cava, Percutaneous Approach (ICD-10-PCS; 2018-03-04)
PROC: 30243N1 Transfusion of Nonautologous Red Blood Cells into Central Vein, Percutaneous Approach (ICD-10-PCS; 2018-03-06)
PROC: 0B9M8ZZ Drainage of Bilateral Lungs, Via Natural or Artificial Opening Endoscopic (ICD-10-PCS; 2018-03-09)
DX: T87.44 Infection of amputation stump, left lower extremity (principal); A41.01 Sepsis due to Methicillin susceptible Staphylococcus aureus; R65.21 Severe sepsis with septic shock; E43 Unspecified severe protein-calorie malnutrition; E87.2 Acidosis; J96.01 Acute respiratory failure with hypoxia; E87.4 Mixed disorder of acid-base balance; D69.6 Thrombocytopenia, unspecified; J96.02 Acute respiratory failure with hypercapnia; J15.5 Pneumonia due to Escherichia coli; E11.10 Type 2 diabetes mellitus with ketoacidosis without coma; J44.9 Chronic obstructive pulmonary disease, unspecified; E87.0 Hyperosmolality and hypernatremia; N17.9 Acute kidney failure, unspecified; M62.82 Rhabdomyolysis; E11.51 Type 2 diabetes mellitus with diabetic peripheral angiopathy without gangrene; E11.43 Type 2 diabetes mellitus with diabetic autonomic (poly)neuropathy; L02.416 Cutaneous abscess of left lower limb; I48.91 Unspecified atrial fibrillation; E83.42 Hypomagnesemia; E88.09 Other disorders of plasma-protein metabolism, not elsewhere classified; E11.65 Type 2 diabetes mellitus with hyperglycemia; L02.512 Cutaneous abscess of left hand; L03.114 Cellulitis of left upper limb; R19.7 Diarrhea, unspecified; I10 Essential (primary) hypertension; D64.9 Anemia, unspecified; R29.6 Repeated falls; E78.00 Pure hypercholesterolemia, unspecified; G47.00 Insomnia, unspecified; N40.0 Benign prostatic hyperplasia without lower urinary tract symptoms; M19.90 Unspecified osteoarthritis, unspecified site; F17.210 Nicotine dependence, cigarettes, uncomplicated; F10.21 Alcohol dependence, in remission; Z91.19 Patient's noncompliance with other medical treatment and regimen; Z88.8 Allergy status to other drugs, medicaments and biological substances; Z89.421 Acquired absence of other right toe(s); Z79.82 Long term (current) use of aspirin; Z79.4 Long term (current) use of insulin; Z79.891 Long term (current) use of opiate analgesic; Z89.512 Acquired absence of left leg below knee; Z68.26 Body mass index [BMI] 26.0-26.9, adult; Y82.9 Unspecified medical devices associated with adverse incidents